=== PATIENT | male | born 1970 | race Caucasian/White ===

== ENCOUNTER 2018-10-16 13:01 | Inpatient (IN) | payer MEDICARE ==
[2018-10-16] MEDS ORDERED: IPRATROPIUM/ALBUTEROL 0.5-2.5 MG/3 ML AMPUL NEB ONE (13:28)
--- NOTE | 2018-10-16 13:28 | ER Document Report ---
ED Medical Screen (RME) - General Chief Complaint: Abnormal Lab Results Stated Complaint: ABORMAL LABS Time Seen by Provider: 10/16/18 13:22 TRAVEL OUTSIDE OF THE [place] IN LAST 30 DAYS: No - HPI Notes: 10/16/18 13:26 Patient is a 48-year-old male with a history of tobacco abuse and alcohol abuse who presents complaining of rectal bleeding and occasional wheezing with associated fatigue over the past month. Patient states that he received a call from his family doctor that told him to come here to the emergency department for evaluation as he had a hemoglobin of ?4. Patient states that he has never had an endoscopy or colonoscopy performed in the past. He has been drinking 20 beers per day for the past 10 to 15 years. Denies drug allergies. Denies PALAFOX, fever, neck pain, URI, CP, Abd pain, dysuria, back pain, or rash. I have treated and performed a rapid initial assessment of this patient. A comprehensive ED assessment and evaluation of the patient, analysis of test results and completion of medical decision making process will be conducted by additional ED providers. PHYSICAL EXAMINATION: GENERAL: no acute distress. A&Ox4. Answers questions appropriately. LUNGS: wheezing b/l HEART: Regular rate and rhythm without murmurs, rubs, gallops. ABDOMEN: Soft, nondistended abdomen. No guarding, no rebound. Normal bowel sounds present. No CVA tenderness bilaterally. Grossly nontender (cannot elicit thorough abd exam w/o bed, however). NEUROLOGICAL: Normal speech, normal gait. PSYCH: Normal mood, normal affect. Skin: pallor present - Related Data Allergies/Adverse Reactions: No Known Allergies Allergy (Verified 10/16/18 13:06) Physical Exam - Vital signs Vitals: Temp Pulse Resp BP Pulse Ox 98.5 F 98 18 140/60 H 94 10/16/18 13:08 10/16/18 13:08 10/16/18 13:08 10/16/18 13:08 10/16/18 13:08 Course - Vital Signs Vital signs: Temp Pulse Resp BP Pulse Ox 98.5 F 98 18 140/60 H 94 10/16/18 13:08 10/16/18 13:08 10/16/18 13:08 10/16/18 13:08 10/16/18 13:08
--- NOTE | 2018-10-16 14:20 | RADIOLOGY REPORT (SQ) ---
EXAM DESCRIPTION: CHEST SINGLE VIEW COMPLETED DATE/TIME: 10/16/2018 1:58 pm REASON FOR STUDY: wheeze COMPARISON: None. EXAM PARAMETERS: NUMBER OF VIEWS: One view. TECHNIQUE: Single frontal radiographic view of the chest acquired. RADIATION DOSE: NA LIMITATIONS: None. FINDINGS: LUNGS AND PLEURA: No opacities, masses or pneumothorax. No pleural effusion. MEDIASTINUM AND HILAR STRUCTURES: No masses. Contour normal. HEART AND VASCULAR STRUCTURES: Heart normal in size. Normal vasculature. BONES: No acute findings. HARDWARE: None in the chest. OTHER: No other significant finding. IMPRESSION: NO ACUTE RADIOGRAPHIC FINDING IN THE CHEST. TECHNICAL DOCUMENTATION: JOB ID: [id number] [employer]- All Rights Reserved Reading location - IP/workstation name: [email or web address]
[2018-10-16 14:34] LABS: INTERNATIONAL RATION (INR) 1.29; PROTHROMBIN TIME 16.8 SEC (11.4-15.4)
[2018-10-16 14:35] LABS: ABSOLUTE BASOPHILS # (AUTO) 0.2 10^3/uL (0.0-0.2); ABSOLUTE EOSINOPHILS # (AUTO) 0.1 10^3/uL (0.0-0.6); ABSOLUTE LYMPHOCYTES (AUTO) 1.3 10^3/uL (0.5-4.7); ABSOLUTE MONOCYTES (AUTO) 0.9 10^3/uL (0.1-1.4); BASOPHILS % (AUTO) 1.8 % (0-2); EOSINOPHILS % (AUTO) 1.3 % (0-6); LYMPHOCYTES % (AUTO) 15.5 % (13-45); MEAN CORPUSCULAR HEMOGLOBIN 23.3 pg (27.0-33.4); MEAN CORPUSCULAR HGB CONC 31.1 g/dL (32.0-36.0); MEAN CORPUSCULAR VOLUME 75 fl (80-97); MONOCYTES % (AUTO) 10.5 % (3-13); PARTIAL THROMBOPLASTIN TIME 37.5 SEC (23.5-35.8); PLATELET COUNT 166 10^3/uL (150-450); RED BLOOD COUNT 1.97 10^6/uL (4.35-5.55); RED CELL DISTRIBUTION WIDTH 19.7 % (11.5-14.0); SEGMENTED NEUTROPHILS % (AUTO) 70.9 % (42-78); TOTAL CELLS COUNTED % (AUTO) 100 %; WHITE BLOOD COUNT 8.5 10^3/uL (4.0-10.5)
[2018-10-16] MEDS ORDERED: LEVETIRACETAM 500 MG TABLET PO ONE (14:43)
[2018-10-16] MEDS ORDERED: NICOTINE 14 MG/24 HR PATCH.TD24 TD ONE (14:43)
[2018-10-16 14:56] LABS: HEMATOCRIT 14.8 % (37.9-51.0); HEMOGLOBIN 4.6 g/dL (13.5-17.0)
[2018-10-16 15:09] LABS: ANISOCYTOSIS 2+; HYPOCHROMASIA 3+
[2018-10-16 15:10] LABS: PLATELET COMMENT ADEQUATE
[2018-10-16] MEDS ORDERED: NORMAL SALINE 250 ML IV PRN (15:11)
[2018-10-16] MEDS ORDERED: FUROSEMIDE INJ/PF 20 MG/2 ML SDV IV ONE (15:12)
[2018-10-16 15:17] LABS: ALANINE AMINOTRANSFERASE 32 U/L (21-72); ALBUMIN 3.6 g/dL (3.5-5.0); ALKALINE PHOSPHATASE 128 U/L (38-126); ANION GAP 15 (5-19); ASPARTATE AMINO TRANSFERASE 125 U/L (17-59); BILIRUBIN,DIRECT 1.1 mg/dL (0.0-0.4); BILIRUBIN,TOTAL 2.2 mg/dL (0.2-1.3); BLOOD UREA NITROGEN 4 mg/dL (7-20); CALCIUM 8.8 mg/dL (8.4-10.2); CARBON DIOXIDE 23 mmol/L (22-30); CHLORIDE 101 mmol/L (98-107); GLUCOSE 98 mg/dL (75-110); POTASSIUM 3.9 mmol/L (3.6-5.0); SODIUM 138.5 mmol/L (137-145); TOTAL PROTEIN 7.8 g/dL (6.3-8.2)
[2018-10-16 15:39] LABS: APPEARANCE,URINE CLEAR; BILIRUBIN,URINE NEGATIVE (NEGATIVE); COLOR,URINE YELLOW; GLUCOSE, URINE NEGATIVE (NEGATIVE); KETONES,URINE NEGATIVE (NEGATIVE); LEUKOCYTE ESTERASE,URINE NEGATIVE (NEGATIVE); NITRITE,URINE NEGATIVE (NEGATIVE); PROTEIN,URINE NEGATIVE (NEGATIVE); URINE SPECIFIC GRAVITY 1.002; UROBILINOGEN,URINE NEGATIVE mg/dL (<2.0)
--- NOTE | 2018-10-16 15:59 | ER Document Report ---
ED General - General Chief Complaint: Abnormal Lab Results Stated Complaint: ABORMAL LABS Time Seen by Provider: 10/16/18 13:22 Notes: Patient is a 48-year-old male with history of epilepsy and chronic alcoholism that presents to the emergency department for chief complaint of fatigue, and low hemoglobin. Patient apparently was seen as an outpatient yesterday had blood work drawn, got the results today showed a hemoglobin of 4.6, he reports having bright red blood per rectum over the past month, its intermittent, but for the most part he has been having blood mixed with the stool. He denies having any black or tarry stools. Denies having any associated abdominal pain, nausea or vomiting. He is felt weak and fatigue he noticed that his legs have been more swollen recently as well. Denies noting more swelling in one leg or the other. He reports drinking alcohol on a daily basis approximate 20 beers a day. He also smokes cigarettes. Denies prior history of GERD or peptic ulcer disease. Past Medical History: Epilepsy, chronic alcoholism Past Surgical History: Knee surgery, finger surgery Social History: Admits to smoking cigarettes, drinks 20 beers a day, denies illicit drug use. Recently moved here from [place]. Family History: Reviewed and noncontributory for presenting illness Allergies: Reviewed, see documented allergy list. REVIEW OF SYSTEMS: Other than noted above, the 12 point review of systems was reviewed with the patient and were negative, all pertinent findings are included in the HPI. PHYSICAL EXAMINATION: Vital signs reviewed, nursing noted reviewed. GENERAL: Patient appears uncomfortable, pale, but not diaphoretic HEAD: Atraumatic, normocephalic. EYES: Eyes appear normal, extraocular movements intact, sclera anicteric, conjunctiva are normal. ENT: nares patent, oropharynx clear without exudates. Moist mucous membranes. NECK: Normal range of motion, supple without lymphadenopathy, no JVD LUNGS: Bilateral wheezing noted throughout all lung albarado, no acute respiratory distress however. HEART: Regular rate and rhythm without murmurs ABDOMEN: Soft, obese, nontender, normoactive bowel sounds. No rebound, guarding, or rigidity. No masses appreciated. No appreciated ascites or fluid wave EXTREMITIES: Nontender, good range of motion, bilateral lower extremity edema, equal, no erythema. NEUROLOGICAL: No focal neurological deficits. Moves all extremities spontaneously Motor and sensory grossly intact on exam. PSYCH: Normal mood, normal affect. SKIN: Warm, Dry, normal turgor, pallor TRAVEL OUTSIDE OF THE [place] IN LAST 30 DAYS: No - Related Data Allergies/Adverse Reactions: No Known Allergies Allergy (Verified 10/16/18 13:06) Past Medical History - Social History Smoking Status: Current Every Day Smoker Family History: Reviewed & Not Pertinent Patient has suicidal ideation: No Patient has homicidal ideation: No Renal/ Medical History: Denies: Hx Peritoneal Dialysis Physical Exam - Vital signs Vitals: Temp Pulse Resp BP Pulse Ox 98.5 F 98 18 140/60 H 94 10/16/18 13:08 10/16/18 13:08 10/16/18 13:08 10/16/18 13:08 10/16/18 13:08 Course - Re-evaluation Re-evalutation: Patient seen and examined vital signs reviewed. Laboratory data and imaging were ordered as appropriate for the patient's presenting symptoms and complaint, with consideration of any critical or life threatening conditions that may be associated with their obtained history and exam as noted above. Patient was treated with blood transfusion, 4 units ordered after hemoglobin came back at 4.6, Lasix ordered to be given in between units, patient was given his afternoon Keppra dose, and nicotine patch that was requested. He is also had some wheezing so was given a DuoNeb breathing treatment. Results were reviewed when available and demonstrated severe anemia, mild hyperbilirubinemia, and slight elevation of AST, which would be consistent with the patient's alcohol use, his INR was only 1.26, platelet count was normal. The patient was re-evaluated and was hemodynamically stable, I did order a CT image of the abdomen and pelvis, but was ordered prior to this. Evaluation was most consistent with acute blood loss anemia, rectal bleeding Results were discussed with the patient at this point after careful consideration I feel that that patient should be admitted to the hospital. This was discussed with the patient that it is in the best interest for their care to be admitted for further evaluation and management. Patient agreed with this plan of care. A call was placed to the admitted physician, [] who graciously accepted the patient onto their service. *Note is created using voice recognition software and may contain spelling, syntax or grammatical errors. Laboratory 10/16/18 10/16/18 10/16/18 14:02 14:02 14:02 WBC 8.5 RBC 1.97 L Hgb 4.6 L* Hct 14.8 L* MCV 75 L MCH 23.3 L MCHC 31.1 L RDW 19.7 H Plt Count 166 Seg Neutrophils % 70.9 Lymphocytes % 15.5 Monocytes % 10.5 Eosinophils % 1.3 Basophils % 1.8 Absolute Neutrophils 6.0 Absolute Lymphocytes 1.3 Absolute Monocytes 0.9 Absolute Eosinophils 0.1 Absolute Basophils 0.2 Platelet Comment ADEQUATE Hypochromasia 3+ Anisocytosis 2+ Microcytosis 1+ PT 16.8 H INR 1.29 APTT 37.5 H Sodium 138.5 Potassium 3.9 Chloride 101 Carbon Dioxide 23 Anion Gap 15 BUN 4 L Creatinine 0.95 Est GFR ( Amer) > 60 Est GFR (Non-Af Amer) > 60 Glucose 98 Calcium 8.8 Total Bilirubin 2.2 H Direct Bilirubin 1.1 H Neonat Total Bilirubin Not Reportable Neonat Direct Bilirubin Not Reportable Neonat Indirect Bili Not Reportable AST 125 H ALT 32 Alkaline Phosphatase 128 H Total Protein 7.8 Albumin 3.6 Urine Color Urine Appearance Urine pH Ur Specific [place] Urine Protein Urine Glucose (UA) Urine Ketones Urine Blood Urine Nitrite Urine Bilirubin Urine Urobilinogen Ur Leukocyte Esterase Urine WBC (Auto) Urine RBC (Auto) U Hyaline Cast (Auto) Urine Bacteria (Auto) Urine Ascorbic Acid Blood Type Antibody Screen Crossmatch 10/16/18 10/16/18 14:02 15:05 WBC RBC Hgb Hct MCV MCH MCHC RDW Plt Count Seg Neutrophils % Lymphocytes % Monocytes % Eosinophils % Basophils % Absolute Neutrophils Absolute Lymphocytes Absolute Monocytes Absolute Eosinophils Absolute Basophils Platelet Comment Hypochromasia Anisocytosis Microcytosis PT INR APTT Sodium Potassium Chloride Carbon Dioxide Anion Gap BUN Creatinine Est GFR ( Amer) Est GFR (Non-Af Amer) Glucose Calcium Total Bilirubin Direct Bilirubin Neonat Total Bilirubin Neonat Direct Bilirubin Neonat Indirect Bili AST ALT Alkaline Phosphatase Total Protein Albumin Urine Color YELLOW Urine Appearance CLEAR Urine pH 6.0 Ur Specific [place] 1.002 Urine Protein NEGATIVE Urine Glucose (UA) NEGATIVE Urine Ketones NEGATIVE Urine Blood NEGATIVE Urine Nitrite NEGATIVE Urine Bilirubin NEGATIVE Urine Urobilinogen NEGATIVE Ur Leukocyte Esterase NEGATIVE Urine WBC (Auto) 0 Urine RBC (Auto) 0 U Hyaline Cast (Auto) 1 Urine Bacteria (Auto) TRACE Urine Ascorbic Acid NEGATIVE Blood Type O POSITIVE Antibody Screen NEGATIVE Crossmatch See Detail Chest X-Ray 10/16/18 13:25 IMPRESSION: NO ACUTE RADIOGRAPHIC FINDING IN THE CHEST. - Vital Signs Vital signs: Temp Pulse Resp BP Pulse Ox 98.9 F 91 23 H 91/49 L 87 L 10/16/18 19:16 10/16/18 19:16 10/16/18 19:16 10/16/18 19:16 10/16/18 19:16 - Laboratory Result Diagrams: 10/16/18 14:02 10/16/18 14:02 Laboratory results interpreted by me: 10/16/18 10/16/18 10/16/18 14:02 14:02 14:02 RBC 1.97 L Hgb 4.6 L* Hct 14.8 L* MCV 75 L MCH 23.3 L MCHC 31.1 L RDW 19.7 H PT 16.8 H APTT 37.5 H BUN 4 L Total Bilirubin 2.2 H Direct Bilirubin 1.1 H AST 125 H Alkaline Phosphatase 128 H Crossmatch 10/16/18 14:02 RBC Hgb Hct MCV MCH MCHC RDW PT APTT BUN Total Bilirubin Direct Bilirubin AST Alkaline Phosphatase Crossmatch See Detail Critical Care Note - Critical Care Note Total time excluding time spent on procedures (mins): 35 Comments: Critical care time 35 minutes exclusive from separate billable procedures for a patient requiring complex medical decision making, and high potential for cl inical deterioration. In a patient with severe acute blood loss anemia, with rectal source, requiring blood transfusion, close monitoring, as well as monitoring for alcohol withdrawal syndrome. Time spent obtaining history from patient or surrogate, discussions with consultants, development of treatment plan with patient or surrogate, evaluation of patient's response to treatment, examination of patient, ordering and performing treatments and interventions, ordering and review of laboratory studies, re-evaluation of patient's condition, ordering and review of radiographic studies and review of old charts Discharge - Discharge Clinical Impression: Acute blood loss anemia, Rectal bleeding, Hyperbilirubinemia, Alcohol abuse Condition: Stable Disposition: ADMITTED INPATIENT Admitting Provider: Justa (Hospitalist) Unit Admitted: [facility]
[2018-10-16] MEDS ORDERED: LORAZEPAM INJ 2 MG/1 ML VIAL IV ONE (16:05)
[2018-10-16] MEDS ORDERED: RINGERS SOLUTION,LACTATED 1,000 ML IV PRN (18:33)
[2018-10-16] MEDS ORDERED: ONDANSETRON HCL INJ/PF 4 MG/2 ML SDV IV PRN (18:33)
[2018-10-16] MEDS ORDERED: GLUCAGON,HUMAN RECOMB 1 MG INJ SUBCUT PRN (18:38)
[2018-10-16] MEDS ORDERED: DEXTROSE 50%-WATER 25 GM/50 ML DISP.SYRIN IV PRN ×2 (18:38)
[2018-10-16] MEDS ORDERED: DEXTROSE 40% GEL 15 GM TUBE PO PRN ×2 (18:38)
--- NOTE | 2018-10-16 18:53 | PDOC H&P ---
History of Present Illness Admission Date/PCP: 10/16/18 16:19 History of Present Illness: TOAN SANTOS is a 48 year old male who smokes 2 to 3 packs of cigarettes a day and drinks about 20 beers a day with a medical history remarkable for epilepsy who presents to the ER after being called by his primary care office with abnormal labs. He just moved here from [place] and was getting established with the [facility] and he had some blood work done. They called him and said his hemoglobin was really low and so they sent him to the ER. He came in and his hemoglobin was 4.6. He reports a history of bright red blood per rectum off and on for the past month but more frequent the past week. He does not take any blood thinners. He is never had a colonoscopy. He does not have any abdominal pain. He has not had any melena. No hematemesis. No nosebleeds. He does not take aspirin or antiplatelets. The only supplement that he takes is a multivitamin. He only takes 2 medications at home, Lamictal and Keppra. Past Medical History Neurological Medical History: Reports: Seizures Past Surgical History Past Surgical History: Reports: None Social History Smoking Status: Current Every Day Smoker Cigarettes Packs Per Day: 2 - 2 to 3 packs/day Frequency of Alcohol Use: Heavy Amount of Alcoholic Beverages Per Day: At least 20 beers per day - Advance Directive Resuscitation Status: Full Code Family History Parental Family History Reviewed: Yes - Mom had epilepsy, dad had coronary artery disease and of pancreatic ca Children Family History Reviewed: NA Sibling(s) Family History Reviewed.: Yes - Sister epilepsy, brother cirrhosis hep C leukemia Medication/Allergy Home Medications: Furosemide [Lasix 40 mg Tablet] 40 mg PO QAM 10/16/18 Lamotrigine [Lamictal] 150 mg PO Q12 10/16/18 Levetiracetam [Keppra] 1,000 mg PO Q8 10/16/18 Allergies/Adverse Reactions: No Known Allergies Allergy (Verified 10/16/18 13:06) Review of Systems All systems: reviewed and no additional remarkable complaints except as stated - All systems were reviewed and were negative except as noted above in the HPI Physical Exam Vital Signs: Temp Pulse Resp BP Pulse Ox 99.3 F 87 21 H 114/58 L 94 10/16/18 17:23 10/16/18 17:23 10/16/18 17:23 10/16/18 17:23 10/16/18 17:23 Intake & Output 10/15/18 10/16/18 10/17/18 06:59 06:59 06:59 Intake Total 0 Output Total 600 Balance -600 Weight 103.2 kg General appearance: PRESENT: no acute distress, cooperative, disheveled, obese Head exam: PRESENT: atraumatic, normocephalic Eye exam: PRESENT: EOMI, PERRLA. ABSENT: conjunctival injection, nystagmus, scleral icterus Ear exam: PRESENT: normal external ear exam Mouth exam: PRESENT: dry mucosa, neck supple Teeth exam: PRESENT: poor dentation Throat exam: ABSENT: post pharyngeal erythema Neck exam: PRESENT: full ROM. ABSENT: carotid bruit, JVD, lymphadenopathy, meningismus, tenderness, thyromegaly Respiratory exam: PRESENT: decreased breath sounds, symmetrical, unlabored. ABSENT: accessory muscle use, chest wall tenderness, crackles, prolonged expiratory phas, rhonchi, tachypnea, wheezes Cardiovascular exam: PRESENT: RRR, +S1, +S2, systolic murmur - Possible soft 1 out of 6 systolic murmur Pulses: PRESENT: normal carotid pulses Vascular exam: PRESENT: pallor GI/Abdominal exam: PRESENT: normal bowel sounds, soft, other - Abdomen was a bit protuberant. ABSENT: distended, guarding, rebound, tenderness Rectal exam: PRESENT: other - Positive Hemoccult from rectal exam in ER Extremities exam: PRESENT: +1 edema. ABSENT: clubbing, pedal edema Musculoskeletal exam: PRESENT: normal inspection. ABSENT: deformity Neurological exam: PRESENT: alert, awake, oriented to person, oriented to place, oriented to time, oriented to situation, CN II-XII grossly intact. ABSENT: motor sensory deficit Psychiatric exam: PRESENT: flat affect, normal mood Skin exam: PRESENT: dry, pallor, warm Results Laboratory Results: 10/16/18 14:02 10/16/18 14:02 10/16/18 10/16/18 10/16/18 14:02 14:02 14:02 WBC 8.5 RBC 1.97 L Hgb 4.6 L* Hct 14.8 L* MCV 75 L MCH 23.3 L MCHC 31.1 L RDW 19.7 H Plt Count 166 Seg Neutrophils % 70.9 Lymphocytes % 15.5 Monocytes % 10.5 Eosinophils % 1.3 Basophils % 1.8 Absolute Neutrophils 6.0 Absolute Lymphocytes 1.3 Absolute Monocytes 0.9 Absolute Eosinophils 0.1 Absolute Basophils 0.2 Sodium 138.5 Potassium 3.9 Chloride 101 Carbon Dioxide 23 Anion Gap 15 BUN 4 L Creatinine 0.95 Est GFR ( Amer) > 60 Est GFR (Non-Af Amer) > 60 Glucose 98 Calcium 8.8 Total Bilirubin 2.2 H AST 125 H ALT 32 Alkaline Phosphatase 128 H Total Protein 7.8 Albumin 3.6 Urine Color Urine Appearance Urine pH Ur Specific [place] Urine Protein Urine Glucose (UA) Urine Ketones Urine Blood Urine Nitrite Ur Leukocyte Esterase Urine WBC (Auto) Urine RBC (Auto) Blood Type O POSITIVE Antibody Screen NEGATIVE 10/16/18 15:05 WBC RBC Hgb Hct MCV MCH MCHC RDW Plt Count Seg Neutrophils % Lymphocytes % Monocytes % Eosinophils % Basophils % Absolute Neutrophils Absolute Lymphocytes Absolute Monocytes Absolute Eosinophils Absolute Basophils Sodium Potassium Chloride Carbon Dioxide Anion Gap BUN Creatinine Est GFR ( Amer) Est GFR (Non-Af Amer) Glucose Calcium Total Bilirubin AST ALT Alkaline Phosphatase Total Protein Albumin Urine Color YELLOW Urine Appearance CLEAR Urine pH 6.0 Ur Specific [place] 1.002 Urine Protein NEGATIVE Urine Glucose (UA) NEGATIVE Urine Ketones NEGATIVE Urine Blood NEGATIVE Urine Nitrite NEGATIVE Ur Leukocyte Esterase NEGATIVE Urine WBC (Auto) 0 Urine RBC (Auto) 0 Blood Type Antibody Screen Impressions: Chest X-Ray 10/16/18 13:25 IMPRESSION: NO ACUTE RADIOGRAPHIC FINDING IN THE CHEST. Assessment and Plan - Diagnosis (1) Acute blood loss anemia Is this a current diagnosis for this admission?: Yes Plan: He has had 4 units of packed red cells ordered. We will check a CBC every 6 hours to see if he winds up needing more blood. Empirically put him on Protonix twice a day even though I suspect it is a lower GI source. (2) Acute lower GI bleeding Is this a current diagnosis for this admission?: Yes Plan: I contacted Dr. Watt, who despite not being project construction manager, graciously agreed to come in and evaluate this patient for need for endoscopic evaluation. I appreciate very much his willingness to help with this patient. (3) Alcoholism Is this a current diagnosis for this admission?: Yes Plan: We will order him a banana bag every day, and have as needed Ativan ordered for withdrawal symptoms. (4) Tobacco abuse Is this a current diagnosis for this admission?: Yes Plan: Strongly encouraged smoking cessation. - Time Time Spent with patient: 75 minutes Time Spent with patient: 35 or more minutes - Inpatient Certification Based on my medical assessment, after consideration of the patient's comorbid ities, presenting symptoms, or acuity I expect that the services needed warrant INPATIENT care.: Yes I certify that my determination is in accordance with my understanding of Medicare's requirements for reasonable and necessary INPATIENT services [42 CFR 412.3e].: Yes Medical Necessity: Significant Comorbidiites Make Outpatient Treatment Too Risky, Need For IV Fluids, Need For Continuous Telemetry Monitoring, Need for Neurological Checks, Need for Surgery, Risk of Complication if Not Cared For in Hospital
--- NOTE | 2018-10-16 18:54 | RADIOLOGY REPORT (SQ) ---
EXAM DESCRIPTION: CT ABD/PELVIS WITH IV ORAL COMPLETED DATE/TIME: 10/16/2018 6:40 pm REASON FOR STUDY: rectal bleeding COMPARISON: None. TECHNIQUE: CT scan of the abdomen and pelvis performed using helical scanning technique with dynamic intravenous contrast injection. Oral contrast. Images reviewed with lung, soft tissue, and bone win dows. Reconstructed coronal and sagittal MPR images reviewed. Delayed images for evaluation of the ur inary system also acquired. All images stored on PACS. All CT scanners at this facility use dose modulation, iterative reconstruction, and/or weight based d osing when appropriate to reduce radiation dose to as low as reasonably achievable (ALARA). [facility]: Dose Right [facility]: CareDose [facility]: Dose Right [facility]: Teradose 4D [facility]: [place] CONTRAST TYPE AND DOSE: contrast/concentration: Isovue 350.00 mg/ml; Total Contrast Delivered: 100.0 ml; Total Saline Delivered: 72.0 ml RENAL FUNCTION: BUN 4 creatinine 0.95 RADIATION DOSE: CT Rad equipment meets quality standard of care and radiation dose reduction techniq ues were employed. CTDIvol: 16.2 - 18.6 mGy. DLP: 1957 mGy-cm.. LIMITATIONS: None. FINDINGS: LOWER CHEST: Mild bibasilar atelectatic changes. LIVER: The liver is somewhat hypoattenuating. SPLEEN: Normal size. No focal lesions. PANCREAS: No masses. No significant calcifications. No adjacent inflammation or peripancreatic fluid collections. Pancreatic duct not dilated. GALLBLADDER: No identified stones by CT criteria. No inflammatory changes to suggest cholecystitis. ADRENAL GLANDS: No significant masses or asymmetry. RIGHT KIDNEY AND URETER: No solid masses. No significant calcifications. No hydronephrosis or hyd roureter. LEFT KIDNEY AND URETER: No solid masses. No significant calcifications. No hydronephrosis or hydr oureter. AORTA AND VESSELS: No aneurysm. No dissection. Renal arteries, SMA, celiac without stenosis. RETROPERITONEUM: No retroperitoneal adenopathy, hemorrhage or masses. BOWEL AND PERITONEAL CAVITY: There is limited wall thickening in the cecum. No obvious bowel mass. APPENDIX: Not identified. PELVIS: Urinary bladder is normal. No pelvic mass or fluid collection. ABDOMINAL WALL: No masses. No hernias. BONES: No significant or acute findings. OTHER: No other significant finding. IMPRESSION: Mild basilar atelectasis. There appears to be some degree of hepatic steatosis. There is limited thickening of the wall of the cecum. Correlate for inflammatory bowel disease. TECHNICAL DOCUMENTATION: JOB ID: [id number] Quality ID # [id number]: Final reports with documentation of one or more dose reduction techniques (e.g., Au tomated exposure control, adjustment of the mA and/or kV according to patient size, use of iterative reconstruction technique) 2010 [employer]- All Rights Reserved Reading location - IP/workstation name: [email or web address]
[2018-10-16] MEDS: PANTOPRAZOLE SODIUM 40 MG VIAL IV SCH (21:41)
[2018-10-16] MEDS: LAMOTRIGINE 100 MG TABLET PO SCH (21:42)
[2018-10-16] MEDS: NORMAL SALINE 1000 ML 1,000 ML with POTASSIUM CHLORIDE 20 MEQ, MAGNESIUM SULFATE 8 MEQ,... IV SCH ×5 (21:42)
[2018-10-16] MEDS: LEVETIRACETAM 500 MG TABLET PO SCH (21:42)
[2018-10-16] MEDS ORDERED: (PENDING PHARMACY ID) (Lamotrigine [Lamictal] 150 MG) PO SCH (22:00)
[2018-10-16] MEDS ORDERED: (PENDING PHARMACY ID) (Levetiracetam [Keppra] 1,000 MG) PO SCH (22:00)
[2018-10-17] MEDS ORDERED: FUROSEMIDE INJ/PF 20 MG/2 ML SDV IV PRN (00:52)
[2018-10-17] MEDS ORDERED: FUROSEMIDE INJ/PF 20 MG/2 ML SDV IV ONE (01:00)
[2018-10-17] MEDS: LEVETIRACETAM 500 MG TABLET PO SCH ×3 (05:34→21:10)
[2018-10-17 06:25] LABS: MEAN CORPUSCULAR HEMOGLOBIN 25.5 pg (27.0-33.4); MEAN CORPUSCULAR HGB CONC 32.9 g/dL (32.0-36.0); MEAN CORPUSCULAR VOLUME 77 fl (80-97); PLATELET COUNT 136 10^3/uL (150-450); RED BLOOD COUNT 2.84 10^6/uL (4.35-5.55); RED CELL DISTRIBUTION WIDTH 18.6 % (11.5-14.0)
[2018-10-17 06:32] LABS: HEMOGLOBIN 7.2 g/dL (13.5-17.0)
[2018-10-17 06:45] LABS: ALANINE AMINOTRANSFERASE 31 U/L (21-72); ALBUMIN 3.3 g/dL (3.5-5.0); ALKALINE PHOSPHATASE 112 U/L (38-126); ANION GAP 12 (5-19); ASPARTATE AMINO TRANSFERASE 101 U/L (17-59); BILIRUBIN,DIRECT 1.6 mg/dL (0.0-0.4); BILIRUBIN,TOTAL 4.5 mg/dL (0.2-1.3); BLOOD UREA NITROGEN 6 mg/dL (7-20); CALCIUM 8.4 mg/dL (8.4-10.2); CARBON DIOXIDE 25 mmol/L (22-30); CHLORIDE 104 mmol/L (98-107); GLUCOSE 99 mg/dL (75-110); POTASSIUM 3.8 mmol/L (3.6-5.0); SODIUM 141.1 mmol/L (137-145); TOTAL PROTEIN 7.1 g/dL (6.3-8.2)
[2018-10-17] MEDS ORDERED: FUROSEMIDE INJ/PF 40 MG/4 ML SDV IV ONE (10:00)
[2018-10-17] MEDS: PANTOPRAZOLE SODIUM 40 MG VIAL IV SCH ×2 (10:37→21:09)
[2018-10-17] MEDS: LAMOTRIGINE 100 MG TABLET PO SCH ×2 (10:37→21:10)
[2018-10-17] MEDS ORDERED: ACETAMINOPHEN 325 MG TABLET ONE (11:45)
[2018-10-17] MEDS ORDERED: DIPHENHYDRAMINE HCL 50 MG/ML VIAL ONE (12:38)
[2018-10-17] MEDS ORDERED: ONDANSETRON HCL INJ/PF 4 MG/2 ML SDV ONE (12:38)
[2018-10-17] MEDS ORDERED: NALOXONE HCL INJ/PF 0.4 MG/1 ML SDV ONE (12:39)
[2018-10-17] MEDS ORDERED: EPINEPHRINE INJ 1 MG/10 ML DISP.SYRIN ONE (12:39)
[2018-10-17] MEDS ORDERED: FLUMAZENIL INJ 0.5 MG/5 ML VIAL ONE (12:39)
[2018-10-17] MEDS ORDERED: GLUCAGON,HUMAN RECOMB 1 MG INJ ONE (12:39)
[2018-10-17] MEDS ORDERED: ACETAMINOPHEN 325 MG TABLET PO PRN (12:46)
[2018-10-17] MEDS ORDERED: MIDAZOLAM 2 MG/2 ML INJ IV ONE (13:11)
[2018-10-17] MEDS: MIDAZOLAM 2 MG/2 ML INJ ONE ×2 (13:11→13:24)
[2018-10-17] MEDS: FENTANYL CITRATE INJ/PF 100 MCG/2 ML AMPUL ONE ×3 (13:13→13:29)
[2018-10-17] MEDS ORDERED: FENTANYL CITRATE INJ/PF 100 MCG/2 ML AMPUL IV ONE (13:13)
--- NOTE | 2018-10-17 13:52 | PDOC CONSULTATION ---
Consultation Consult Date: 10/16/18 Provider Consulted: DIANA WASHINGTON Consult reason:: possible GI bleeding, chronic anemia History of Present Illness Admission Date/PCP: 10/16/18 16:19 History of Present Illness: TOAN SANTOS is a 48 year old male I was asked to see this patient by the Hospitalist physician yesterday, was admitted from the ED found to have a Hgb of around 4 patient was admitted due to possible GI bleeding patient was being transfused and I had spoken to the Hospitalist patient was going to be prepped overnight for GI procedures patient denies any SOB, or chest pain Past Medical History Neurological Medical History: Reports: Seizures - EPILEPSY Past Surgical History Past Surgical History: Reports: None Social History Smoking Status: Current Every Day Smoker Cigarettes Packs Per Day: 3 Number of Years Smokin Frequency of Alcohol Use: Heavy Hx Recreational Drug Use: No Drugs: None - Advance Directive Resuscitation Status: Full Code Family History Family History: Reviewed & Not Pertinent Parental Family History Reviewed: Yes Children Family History Reviewed: Unknown Sibling(s) Family History Reviewed.: Unknown Medication/Allergy Home Medications: Lamotrigine [Lamictal] 150 mg PO Q12 10/16/18 Levetiracetam [Keppra] 1,000 mg PO Q8 10/16/18 Allergies/Adverse Reactions: No Known Allergies Allergy (Verified 10/16/18 13:06) Review of Systems Constitutional: ABSENT: fever(s), headache(s), night sweats, weakness Eyes: ABSENT: visual disturbances Ears: ABSENT: hearing changes Nose, Mouth, and Throat: ABSENT: mouth pain, sore throat Cardiovascular: ABSENT: edema, orthropnea, palpitations Respiratory: ABSENT: dyspnea, hemoptysis Gastrointestinal: ABSENT: diarrhea, hematemesis, hematochezia, melena Genitourinary: ABSENT: dysuria, hematuria Musculoskeletal: ABSENT: deformity, joint swelling Integumentary: ABSENT: lesions, pruritus Neurological: ABSENT: syncope, tingling, tremor(s), vertigo Endocrine: ABSENT: polydipsia, polyphagia, polyuria Hematologic/Lymphatic: ABSENT: easy bruising Physical Exam Vital Signs: Temp Pulse Resp BP Pulse Ox 99.5 F 84 16 119/59 L 92 10/17/18 12:09 10/17/18 13:35 10/17/18 13:35 10/17/18 13:35 10/17/18 13:35 Intake & Output 10/16/18 10/17/18 10/18/18 06:59 06:59 06:59 Intake Total 1200 1023 Output Total 2500 Balance -1300 1023 Weight 93.5 kg General appearance: PRESENT: no acute distress, well-developed, well-nourished Head exam: PRESENT: atraumatic, normocephalic Eye exam: PRESENT: EOMI, PERRLA. ABSENT: nystagmus, periorbital swelling, scleral icterus Mouth exam: PRESENT: moist, neck supple Neck exam: ABSENT: meningismus, tenderness, thyromegaly Respiratory exam: PRESENT: symmetrical, unlabored. ABSENT: tachypnea, wheezes Cardiovascular exam: PRESENT: +S1, +S2 Neurological exam: PRESENT: oriented to time, oriented to situation, CN II-XII grossly intact Focused psych exam: ABSENT: restlessness Skin exam: PRESENT: normal color. ABSENT: mottled, pallor, urticaria Results Laboratory Results: 10/17/18 06:09 10/17/18 06:09 10/16/18 10/16/18 10/16/18 14:02 14:02 14:02 WBC 8.5 RBC 1.97 L Hgb 4.6 L* Hct 14.8 L* MCV 75 L MCH 23.3 L MCHC 31.1 L RDW 19.7 H Plt Count 166 Seg Neutrophils % 70.9 Lymphocytes % 15.5 Monocytes % 10.5 Eosinophils % 1.3 Basophils % 1.8 Absolute Neutrophils 6.0 Absolute Lymphocytes 1.3 Absolute Monocytes 0.9 Absolute Eosinophils 0.1 Absolute Basophils 0.2 Sodium 138.5 Potassium 3.9 Chloride 101 Carbon Dioxide 23 Anion Gap 15 BUN 4 L Creatinine 0.95 Est GFR ( Amer) > 60 Est GFR (Non-Af Amer) > 60 Glucose 98 Calcium 8.8 Total Bilirubin 2.2 H AST 125 H ALT 32 Alkaline Phosphatase 128 H Total Protein 7.8 Albumin 3.6 Urine Color Urine Appearance Urine pH Ur Specific [place] Urine Protein Urine Glucose (UA) Urine Ketones Urine Blood Urine Nitrite Ur Leukocyte Esterase Urine WBC (Auto) Urine RBC (Auto) Blood Type O POSITIVE Antibody Screen NEGATIVE 10/16/18 10/17/18 10/17/18 15:05 06:09 06:09 WBC 8.0 RBC 2.84 L Hgb 7.2 L D Hct 22.0 L MCV 77 L MCH 25.5 L MCHC 32.9 RDW 18.6 H Plt Count 136 L Seg Neutrophils % Lymphocytes % Monocytes % Eosinophils % Basophils % Absolute Neutrophils Absolute Lymphocytes Absolute Monocytes Absolute Eosinophils Absolute Basophils Sodium 141.1 Potassium 3.8 Chloride 104 Carbon Dioxide 25 Anion Gap 12 BUN 6 L Creatinine 0.97 Est GFR ( Amer) > 60 Est GFR (Non-Af Amer) > 60 Glucose 99 Calcium 8.4 Total Bilirubin 4.5 H AST 101 H ALT 31 Alkaline Phosphatase 112 Total Protein 7.1 Albumin 3.3 L Urine Color YELLOW Urine Appearance CLEAR Urine pH 6.0 Ur Specific [place] 1.002 Urine Protein NEGATIVE Urine Glucose (UA) NEGATIVE Urine Ketones NEGATIVE Urine Blood NEGATIVE Urine Nitrite NEGATIVE Ur Leukocyte Esterase NEGATIVE Urine WBC (Auto) 0 Urine RBC (Auto) 0 Blood Type Antibody Screen Impressions: Abdomen/Pelvis CT 10/16/18 00:00 IMPRESSION: Mild basilar atelectasis. There appears to be some degree of hepatic steatosis. There is limited thickening of the wall of the cecum. Correlate for inflammatory bowel disease. Chest X-Ray 10/16/18 13:25 IMPRESSION: NO ACUTE RADIOGRAPHIC FINDING IN THE CHEST. Assessment & Plan - Diagnosis (1) Rectal bleeding Plan: patient admitted for GI bleeding although in talking with the patient , he denies In my conversation with the Hospitalist, patient will be prepped overnight and will need EGD and colonoscopy Risks, benefits and alternatives are discussed further recommendations to follow - Time Time Spent: 50 to 70 Minutes
--- NOTE | 2018-10-17 13:55 | Operative Report ---
Operative Report DATE OF SURGERY: 10/17/18 Operative Report: The risks, benefits and alternatives of the procedure including the risk of bleeding, perforation requiring surgery have been explained to the patient in detail and informed consent has been obtained. Patient is brought to the endoscopy suite and placed in the left, lateral decubital position. Timeout was called. Conscious sedation medications are provided. Rectal examination is done which did not reveal any masses, tears or fissures. Digital rectal exam did not reveal any blood. The scope was then inserted into the patient's rectum the scope was then carefully advanced all the way to the cecum the cecum was identified by the usual anatomical landmarks including the ileocecal valve as well as the appendiceal office photodocumentation is obtained intubation of the terminal ileum is done, the scope was then sequentially pulled back via the bassam ious segments of the colon including the ascending colon, hepatic flexure, transverse colon, splenic flexure, descending colon and finally into the rectosigmoid portions of the colon. Retroflexion maneuvers performed. There is no blood visualized in the colon. The risks benefits and alternatives of the procedure explained to the patient in detail and informed consent is obtained.A GIF Olympus video scope was inserted into the patient's mouth and hypopharynx ,the esophagus is identified intubated and insufflated ,the scope was then advanced through the esophagus stomach and duodenum ,retroflexion maneuver is done,the esophagus stomach and first and second portions of the duodenum examined. PREOPERATIVE DIAGNOSIS: Possible GI bleeding POSTOPERATIVE DIAGNOSIS: No blood noted in the colon. No blood noted in the terminal ileum. Some internal hemorrhoids. No blood in the upper GI tract. Possible esophagitis status post biopsy OPERATION: Diagnostic colonoscopy. EGD with biopsy SURGEON: DIANA WASHINGTON ANESTHESIA: Moderate Sedation TISSUE REMOVED OR ALTERED: None. COMPLICATIONS: None. ESTIMATED BLOOD LOSS: None. INTRAOPERATIVE FINDINGS: As noted above. PROCEDURE: Patient tolerated the procedure well. No immediate postprocedure complications are noted. Patient is sent back to his room in good condition. Case discussed with his . Including findings Resume regular diet Resume regular activity level Once hemoglobin has stabilized he can be discharge
[2018-10-17] MEDS: LORAZEPAM INJ 2 MG/1 ML VIAL IV PRN ×2 (14:30→21:09)
[2018-10-17 16:46] LABS: HEMATOCRIT 24.5 % (37.9-51.0); MEAN CORPUSCULAR HEMOGLOBIN 25.5 pg (27.0-33.4); MEAN CORPUSCULAR HGB CONC 32.3 g/dL (32.0-36.0); MEAN CORPUSCULAR VOLUME 79 fl (80-97); PLATELET COUNT 141 10^3/uL (150-450); RED CELL DISTRIBUTION WIDTH 18.5 % (11.5-14.0)
[2018-10-17 16:48] LABS: HEMOGLOBIN 7.9 g/dL (13.5-17.0)
--- NOTE | 2018-10-17 18:32 | PDOC PROGRESS REPORT ---
Subjective Progress Note for:: 10/17/18 Subjective:: No adverse events overnight. He is gotten 4 units of blood and some fluids and started having some crackly breath sounds and so he was given some Lasix. This did help some with his breathing. He required 1/5 unit of PRBCs this morning. He had a colonoscopy and EGD and they were essentially negative for any obvious source of bleeding. Reason For Visit: ACUTE BLOOD LOSS ANEMIA, ACUTE LGIB Physical Exam Vital Signs: Temp Pulse Resp BP Pulse Ox 98.3 F 78 20 122/60 97 10/17/18 14:09 10/17/18 14:09 10/17/18 14:09 10/17/18 14:09 10/17/18 14:09 Intake & Output 10/16/18 10/17/18 10/18/18 06:59 06:59 06:59 Intake Total 1200 1548 Output Total 2500 Balance -1300 1548 Weight 93.5 kg General appearance: PRESENT: cooperative, disheveled, mild distress Respiratory exam: PRESENT: crackles - Very faint left lower lobe, decreased breath sounds, symmetrical, unlabored. ABSENT: accessory muscle use, chest wall tenderness, prolonged expiratory phas, rhonchi, tachypnea, wheezes Cardiovascular exam: PRESENT: RRR, +S1, +S2 Pulses: PRESENT: normal carotid pulses Vascular exam: PRESENT: normal capillary refill GI/Abdominal exam: PRESENT: normal bowel sounds, soft. ABSENT: distended, guarding, rebound, tenderness Extremities exam: ABSENT: clubbing, pedal edema Musculoskeletal exam: PRESENT: normal inspection. ABSENT: deformity Neurological exam: PRESENT: alert, awake, oriented to person, oriented to place, oriented to situation, other - A little tremulous Psychiatric exam: PRESENT: flat affect, normal mood Skin exam: PRESENT: dry, pallor, warm Results Laboratory Results: 10/17/18 16:37 10/17/18 06:09 10/16/18 10/17/18 10/17/18 14:02 06:09 06:09 WBC 8.0 RBC 2.84 L Hgb 7.2 L D Hct 22.0 L MCV 77 L MCH 25.5 L MCHC 32.9 RDW 18.6 H Plt Count 136 L Sodium 141.1 Potassium 3.8 Chloride 104 Carbon Dioxide 25 Anion Gap 12 BUN 6 L Creatinine 0.97 Est GFR ( Amer) > 60 Est GFR (Non-Af Amer) > 60 Glucose 99 Calcium 8.4 Total Bilirubin 4.5 H AST 101 H ALT 31 Alkaline Phosphatase 112 Total Protein 7.1 Albumin 3.3 L Blood Type O POSITIVE Antibody Screen NEGATIVE 10/17/18 16:37 WBC 9.0 RBC 3.10 L Hgb 7.9 L Hct 24.5 L MCV 79 L MCH 25.5 L MCHC 32.3 RDW 18.5 H Plt Count 141 L Sodium Potassium Chloride Carbon Dioxide Anion Gap BUN Creatinine Est GFR ( Amer) Est GFR (Non-Af Amer) Glucose Calcium Total Bilirubin AST ALT Alkaline Phosphatase Total Protein Albumin Blood Type Antibody Screen Impressions: Abdomen/Pelvis CT 10/16/18 00:00 IMPRESSION: Mild basilar atelectasis. There appears to be some degree of hepatic steatosis. There is limited thickening of the wall of the cecum. Correlate for inflammatory bowel disease. Chest X-Ray 10/16/18 13:25 IMPRESSION: NO ACUTE RADIOGRAPHIC FINDING IN THE CHEST. Assessment and Plan - Diagnosis (1) Acute blood loss anemia Is this a current diagnosis for this admission?: Yes Plan: Correcting after 5 units of packed red cells, hemoglobin up to date. Monitor him for any ongoing blood loss. (2) Acute lower GI bleeding Is this a current diagnosis for this admission?: Yes Plan: No obvious source of bleeding on his colonoscopy or EGD. He did have some hemorrhoids but there was no evidence of any bleeding on the report. He may need to be set up for a capsule endoscopy as an outpatient. (3) Alcoholism Is this a current diagnosis for this admission?: Yes Plan: He is getting a banana bag every day and being monitored closely for withdrawal symptoms and given PRN Ativan. (4) Tobacco abuse Is this a current diagnosis for this admission?: Yes Plan: Strongly encourage cessation - Time Time Spent with patient: 15-24 minutes - Plan Summary Plan Summary: Once his bleeding is stabilized he can be discharged and set up for an outpatient capsule endoscopy.
[2018-10-17] MEDS: NORMAL SALINE 1000 ML 1,000 ML with POTASSIUM CHLORIDE 20 MEQ, MAGNESIUM SULFATE 8 MEQ,... IV SCH ×5 (21:09)
[2018-10-18 01:28] LABS: HEMATOCRIT 23.1 % (37.9-51.0); MEAN CORPUSCULAR HEMOGLOBIN 25.8 pg (27.0-33.4); MEAN CORPUSCULAR HGB CONC 32.7 g/dL (32.0-36.0); MEAN CORPUSCULAR VOLUME 79 fl (80-97); PLATELET COUNT 120 10^3/uL (150-450); RED BLOOD COUNT 2.93 10^6/uL (4.35-5.55); RED CELL DISTRIBUTION WIDTH 18.7 % (11.5-14.0); WHITE BLOOD COUNT 8.5 10^3/uL (4.0-10.5)
[2018-10-18 01:30] LABS: HEMOGLOBIN 7.6 g/dL (13.5-17.0)
[2018-10-18] MEDS: LORAZEPAM INJ 2 MG/1 ML VIAL IV PRN ×6 (01:50→23:21)
[2018-10-18] MEDS: LEVETIRACETAM 500 MG TABLET PO SCH ×3 (05:51→21:48)
[2018-10-18 06:29] LABS: HEMATOCRIT 22.2 % (37.9-51.0); MEAN CORPUSCULAR HEMOGLOBIN 25.7 pg (27.0-33.4); MEAN CORPUSCULAR HGB CONC 32.8 g/dL (32.0-36.0); MEAN CORPUSCULAR VOLUME 78 fl (80-97); PLATELET COUNT 129 10^3/uL (150-450); RED BLOOD COUNT 2.83 10^6/uL (4.35-5.55); RED CELL DISTRIBUTION WIDTH 18.8 % (11.5-14.0); WHITE BLOOD COUNT 7.9 10^3/uL (4.0-10.5)
[2018-10-18 06:49] LABS: HEMOGLOBIN 7.3 g/dL (13.5-17.0)
[2018-10-18 06:52] LABS: ALANINE AMINOTRANSFERASE 31 U/L (21-72); ALKALINE PHOSPHATASE 104 U/L (38-126); ANION GAP 10 (5-19); ASPARTATE AMINO TRANSFERASE 77 U/L (17-59); BILIRUBIN,DIRECT 2.1 mg/dL (0.0-0.4); BILIRUBIN,TOTAL 4.3 mg/dL (0.2-1.3); BLOOD UREA NITROGEN 6 mg/dL (7-20); CALCIUM 8.1 mg/dL (8.4-10.2); CARBON DIOXIDE 24 mmol/L (22-30); CHLORIDE 102 mmol/L (98-107); GLUCOSE 79 mg/dL (75-110); POTASSIUM 3.5 mmol/L (3.6-5.0); SODIUM 136.2 mmol/L (137-145); TOTAL PROTEIN 6.5 g/dL (6.3-8.2)
[2018-10-18] MEDS: NICOTINE 21 MG/24 HR PATCH.TD24 TD SCH (09:54)
[2018-10-18] MEDS: LAMOTRIGINE 100 MG TABLET PO SCH ×2 (09:54→21:48)
--- NOTE | 2018-10-18 16:23 | PDOC PROGRESS REPORT ---
Subjective Progress Note for:: 10/18/18 Subjective:: No adverse events overnight. He is a little bit more tremulous today. His breathing seemed to be a little bit labor earlier but has since stabilized. His appetite is been fine. He is not noticed any more blood in stool. EGD and colonoscopy yesterday were negative for a definite source of bleeding, but some hemorrhoids were seen. Reason For Visit: ACUTE BLOOD LOSS ANEMIA, ACUTE LGIB Physical Exam Vital Signs: Temp Pulse Resp BP Pulse Ox 99.1 F 119 H 20 112/61 97 10/18/18 15:02 10/18/18 15:02 10/18/18 15:02 10/18/18 15:02 10/18/18 15:02 Intake & Output 10/17/18 10/18/18 10/19/18 06:59 06:59 06:59 Intake Total 1200 2328 1020 Output Total 2500 980 600 Balance -1300 1348 420 Weight 93.5 kg 102.9 kg General appearance: PRESENT: cooperative, disheveled, mild distress Respiratory exam: PRESENT: decreased breath sounds, symmetrical, unlabored. ABSENT: accessory muscle use, chest wall tenderness, crackles, prolonged expiratory phas, rhonchi, tachypnea, wheezes Cardiovascular exam: PRESENT: RRR, +S1, +S2 Pulses: PRESENT: normal carotid pulses Vascular exam: PRESENT: normal capillary refill GI/Abdominal exam: PRESENT: normal bowel sounds, soft. ABSENT: distended, guar ding, rebound, tenderness Extremities exam: ABSENT: clubbing, pedal edema Musculoskeletal exam: PRESENT: normal inspection. ABSENT: deformity Neurological exam: PRESENT: alert, awake, oriented to person, oriented to place, oriented to situation, other - A little tremulous Psychiatric exam: PRESENT: flat affect, normal mood Skin exam: PRESENT: dry, pallor, warm Results Laboratory Results: 10/18/18 05:00 10/18/18 05:00 10/17/18 10/18/18 10/18/18 16:37 00:40 05:00 WBC 9.0 8.5 RBC 3.10 L 2.93 L Hgb 7.9 L 7.6 L Hct 24.5 L 23.1 L MCV 79 L 79 L MCH 25.5 L 25.8 L MCHC 32.3 32.7 RDW 18.5 H 18.7 H Plt Count 141 L 120 L Sodium 136.2 L Potassium 3.5 L Chloride 102 Carbon Dioxide 24 Anion Gap 10 BUN 6 L Creatinine 0.91 Est GFR ( Amer) > 60 Est GFR (Non-Af Amer) > 60 Glucose 79 Calcium 8.1 L Total Bilirubin 4.3 H AST 77 H ALT 31 Alkaline Phosphatase 104 Total Protein 6.5 Albumin 3.0 L 10/18/18 05:00 WBC 7.9 RBC 2.83 L Hgb 7.3 L Hct 22.2 L MCV 78 L MCH 25.7 L MCHC 32.8 RDW 18.8 H Plt Count 129 L Sodium Potassium Chloride Carbon Dioxide Anion Gap BUN Creatinine Est GFR ( Amer) Est GFR (Non-Af Amer) Glucose Calcium Total Bilirubin AST ALT Alkaline Phosphatase Total Protein Albumin Impressions: Abdomen/Pelvis CT 10/16/18 00:00 IMPRESSION: Mild basilar atelectasis. There appears to be some degree of hepatic steatosis. There is limited thickening of the wall of the cecum. Correlate for inflammatory bowel disease. Chest X-Ray 10/16/18 13:25 IMPRESSION: NO ACUTE RADIOGRAPHIC FINDING IN THE CHEST. Assessment and Plan - Diagnosis (1) Acute blood loss anemia Is this a current diagnosis for this admission?: Yes Plan: Status post 5 units packed red blood cells. Monitoring his hemoglobin for any further drop. (2) Acute lower GI bleeding Is this a current diagnosis for this admission?: Yes Plan: Other than some hemorrhoids, nothing was really seen on colonoscopy or EGD. He will probably need a capsule endoscopy as an outpatient. (3) Alcoholism Is this a current diagnosis for this admission?: Yes Plan: Taking him off the banana bag and switching him to oral vitamin supplementation to reduce the amount of fluid intake. Monitoring very closely for signs of withdrawal, PRN Ativan. He had some hepatic steatosis on liver CT, but he also had some early peripheral nodularity of the liver. (4) Tobacco abuse Is this a current diagnosis for this admission?: Yes Plan: Strongly encourage cessation - Time Time Spent with patient: 15-24 minutes
[2018-10-18] MEDS: PANTOPRAZOLE SODIUM 40 MG TABLET.DR PO SCH (16:58)
[2018-10-19] MEDS ORDERED: LEVALBUTEROL HCL NEB 1.25 MG/3 ML AMPUL NEB ONE (00:15)
[2018-10-19] MEDS ORDERED: FUROSEMIDE INJ/PF 40 MG/4 ML SDV IV ONE (00:15)
[2018-10-19] MEDS: LORAZEPAM INJ 2 MG/1 ML VIAL IV PRN ×4 (00:33→22:42)
[2018-10-19] MEDS ORDERED: DIAZEPAM INJ 10 MG/2 ML DISP.SYRIN IV ONE (02:15)
[2018-10-19] MEDS: DIAZEPAM INJ 10 MG/2 ML DISP.SYRIN IV PRN ×4 (03:24→12:20)
[2018-10-19] MEDS: LEVETIRACETAM 500 MG TABLET PO SCH ×3 (05:18→21:04)
[2018-10-19] MEDS: DIAZEPAM 5 MG TABLET PO SCH ×3 (05:18→14:28)
[2018-10-19] MEDS: PANTOPRAZOLE SODIUM 40 MG TABLET.DR PO SCH ×2 (05:18→17:26)
[2018-10-19] MEDS: IPRATROPIUM/ALBUTEROL 0.5-2.5 MG/3 ML AMPUL NEB PRN ×2 (08:15→20:34)
[2018-10-19] MEDS: LAMOTRIGINE 100 MG TABLET PO SCH ×2 (09:31→21:04)
[2018-10-19] MEDS: NICOTINE 21 MG/24 HR PATCH.TD24 TD SCH (09:32)
[2018-10-19] MEDS: FOLIC ACID 1 MG TABLET PO SCH (09:32)
[2018-10-19] MEDS ORDERED: FLUMAZENIL INJ 0.5 MG/5 ML VIAL ONE (12:23)
[2018-10-19 13:06] LABS: HEMATOCRIT 23.1 % (37.9-51.0); MEAN CORPUSCULAR HEMOGLOBIN 26.3 pg (27.0-33.4); MEAN CORPUSCULAR HGB CONC 32.8 g/dL (32.0-36.0); MEAN CORPUSCULAR VOLUME 80 fl (80-97); PLATELET COUNT 134 10^3/uL (150-450); RED BLOOD COUNT 2.88 10^6/uL (4.35-5.55); RED CELL DISTRIBUTION WIDTH 19.7 % (11.5-14.0); WHITE BLOOD COUNT 7.6 10^3/uL (4.0-10.5)
[2018-10-19 13:08] LABS: HEMOGLOBIN 7.6 g/dL (13.5-17.0)
[2018-10-19 13:31] LABS: ALANINE AMINOTRANSFERASE 26 U/L (21-72); ALBUMIN 3.2 g/dL (3.5-5.0); ALKALINE PHOSPHATASE 106 U/L (38-126); ANION GAP 7 (5-19); ASPARTATE AMINO TRANSFERASE 70 U/L (17-59); BILIRUBIN,DIRECT 2.3 mg/dL (0.0-0.4); BILIRUBIN,TOTAL 3.8 mg/dL (0.2-1.3); BLOOD UREA NITROGEN 6 mg/dL (7-20); CALCIUM 8.5 mg/dL (8.4-10.2); CARBON DIOXIDE 27 mmol/L (22-30); CHLORIDE 105 mmol/L (98-107); GLUCOSE 87 mg/dL (75-110); POTASSIUM 3.5 mmol/L (3.6-5.0); SODIUM 139.1 mmol/L (137-145); TOTAL PROTEIN 6.8 g/dL (6.3-8.2)
[2018-10-19] MEDS: THIAMINE HCL 100 MG TABLET PO SCH (13:32)
[2018-10-19] MEDS: LEVALBUTEROL HCL NEB 1.25 MG/3 ML AMPUL NEB PRN (14:30)
[2018-10-19] MEDS ORDERED: METHYLPREDNISOLONE INJ 125 MG/2 ML SDV ONE (15:43)
[2018-10-19] MEDS ORDERED: METHYLPREDNISOLONE INJ 125 MG/2 ML SDV IV ONE (15:45)
--- NOTE | 2018-10-19 16:04 | PDOC PROGRESS REPORT ---
Subjective Progress Note for:: 10/19/18 Subjective:: As his alcohol withdrawal has begun to settle down, he has required repeated doses of IV benzodiazepines as well as soft wrist restraints. He is also been a little bit dyspneic. He got some Lasix yesterday and his volume status has improved and he is less swollen, but now he has a prolonged expiratory phase a little bit of wheezing. No evidence of any melena or hematochezia. Reason For Visit: ACUTE BLOOD LOSS ANEMIA, ACUTE LGIB Physical Exam Vital Signs: Temp Pulse Resp BP Pulse Ox 98.8 F 79 16 118/53 L 92 10/19/18 04:37 10/19/18 14:31 10/19/18 14:31 10/19/18 04:37 10/19/18 14:31 Intake & Output 10/18/18 10/19/18 10/20/18 06:59 06:59 06:59 Intake Total 2328 3203 Output Total 980 2800 Balance 1348 403 Weight 102.9 kg 101.6 kg General appearance: PRESENT: cooperative, disheveled, mild distress Respiratory exam: PRESENT: decreased breath sounds, prolonged expiratory phase, symmetrical, unlabored, end expiratory wheezes. ABSENT: accessory muscle use, chest wall tenderness, crackles, rhonchi, tachypnea Cardiovascular exam: PRESENT: RRR, +S1, +S2 Pulses: PRESENT: normal carotid pulses Vascular exam: PRESENT: normal capillary refill GI/Abdominal exam: PRESENT: normal bowel sounds, soft. ABSENT: distended, guarding, rebound, tenderness Extremities exam: ABSENT: clubbing, pedal edema. PRESENT: 1+ ankle edema Musculoskeletal exam: PRESENT: normal inspection. ABSENT: deformity Neurological exam: PRESENT: alert, awake, oriented to person, oriented to place, oriented to situation, other - A little tremulous Psychiatric exam: PRESENT: flat affect, normal mood Skin exam: PRESENT: dry, pallor, warm Results Laboratory Results: 10/19/18 12:45 10/19/18 12:45 10/19/18 10/19/18 12:45 12:45 WBC 7.6 RBC 2.88 L Hgb 7.6 L Hct 23.1 L MCV 80 MCH 26.3 L MCHC 32.8 RDW 19.7 H Plt Count 134 L Sodium 139.1 Potassium 3.5 L Chloride 105 Carbon Dioxide 27 Anion Gap 7 BUN 6 L Creatinine 0.93 Est GFR ( Amer) > 60 Est GFR (Non-Af Amer) > 60 Glucose 87 Calcium 8.5 Total Bilirubin 3.8 H AST 70 H ALT 26 Alkaline Phosphatase 106 Total Protein 6.8 Albumin 3.2 L Impressions: Abdomen/Pelvis CT 10/16/18 00:00 IMPRESSION: Mild basilar atelectasis. There appears to be some degree of hepatic steatosis. There is limited thickening of the wall of the cecum. Correlate for inflammatory bowel disease. Chest X-Ray 10/16/18 13:25 IMPRESSION: NO ACUTE RADIOGRAPHIC FINDING IN THE CHEST. Assessment and Plan - Diagnosis (1) Acute blood loss anemia Is this a current diagnosis for this admission?: Yes Plan: Hemoglobin stable in the mid 7 range (2) Acute lower GI bleeding Is this a current diagnosis for this admission?: Yes Plan: Other than some hemorrhoids, nothing was really seen on colonoscopy or EGD. He will probably need a capsule endoscopy as an outpatient. (3) Alcoholism Is this a current diagnosis for this admission?: Yes Plan: Currently in withdrawal. Being controlled with as needed medications. Vitamin supplementation. (4) Tobacco abuse Is this a current diagnosis for this admission?: Yes Plan: Strongly encourage cessation (5) COPD with acute exacerbation Is this a current diagnosis for this admission?: Yes Plan: I do not know if he has this is a formal diagnosis, but with his long smoking history of 2 to 3 packs a day I suspect he has it in at least some degree. With his excess prolonged expiratory phase and end expiratory wheezes and coarse breath sounds, I am going to put him on some Solu-Medrol along with some breathing treatments. - Time Time Spent with patient: 25-34 minutes
[2018-10-19 18:26] LABS: ARTERIAL BLOOD BASE EXCESS 2.1 mmol/L; ARTERIAL BLOOD H2CO3 1.02 mmol/L (1.05-1.35); ARTERIAL BLOOD HCO3 25.3 mmol/L (20-24); ARTERIAL BLOOD O2 SATURATION 94.1 % (94-98); ARTERIAL BLOOD PCO2 33.8 mmHg (35-45); ARTERIAL BLOOD PH 7.49 (7.35-7.45); ARTERIAL BLOOD PO2 63.5 mmHg (80-100); ARTERIAL BLOOD TOTAL CO2 26.3 mmol/L (23-27)
[2018-10-19 18:30] LABS: ARTERIAL BLOOD FIO2 4L
[2018-10-19] MEDS: METHYLPREDNISOLONE INJ 40 MG/1 ML SDV IV SCH (21:08)
[2018-10-20] MEDS: LORAZEPAM INJ 2 MG/1 ML VIAL IV PRN ×5 (00:42→21:28)
[2018-10-20] MEDS: LEVALBUTEROL HCL NEB 1.25 MG/3 ML AMPUL NEB PRN (01:07)
[2018-10-20] MEDS: METHYLPREDNISOLONE INJ 40 MG/1 ML SDV IV SCH ×3 (05:16→21:28)
[2018-10-20] MEDS: LEVETIRACETAM 500 MG TABLET PO SCH ×3 (05:16→21:29)
[2018-10-20] MEDS: PANTOPRAZOLE SODIUM 40 MG TABLET.DR PO SCH ×2 (05:16→16:56)
[2018-10-20] MEDS: LAMOTRIGINE 100 MG TABLET PO SCH ×2 (09:00→21:28)
[2018-10-20] MEDS: FOLIC ACID 1 MG TABLET PO SCH (09:00)
[2018-10-20] MEDS: THIAMINE HCL 100 MG TABLET PO SCH (09:00)
[2018-10-20] MEDS: NICOTINE 21 MG/24 HR PATCH.TD24 TD SCH (09:00)
[2018-10-20] MEDS: IPRATROPIUM/ALBUTEROL 0.5-2.5 MG/3 ML AMPUL NEB PRN ×2 (10:13→23:38)
[2018-10-20] MEDS ORDERED: ONDANSETRON HCL INJ/PF 4 MG/2 ML SDV IV PRN (11:00)
[2018-10-20 11:02] LABS: HEMOGLOBIN 8.4 g/dL (13.5-17.0); MEAN CORPUSCULAR HEMOGLOBIN 26.3 pg (27.0-33.4); MEAN CORPUSCULAR HGB CONC 32.4 g/dL (32.0-36.0); MEAN CORPUSCULAR VOLUME 81 fl (80-97); PLATELET COUNT 161 10^3/uL (150-450); RED CELL DISTRIBUTION WIDTH 19.8 % (11.5-14.0); WHITE BLOOD COUNT 8.8 10^3/uL (4.0-10.5)
[2018-10-20 13:52] LABS: PATH REVIEW PATHOLOGIST REVIEWED
--- NOTE | 2018-10-20 16:41 | PDOC PROGRESS REPORT ---
Subjective Progress Note for:: 10/20/18 Subjective:: No adverse events overnight. He is only had one dose of IV that was earlier this morning. He seems very subdued, but is not tremulous this morning. He has remained on oxygen and his breathing has improved but his lungs still sound very coarse. No more bloody bowel movements. Reason For Visit: ACUTE BLOOD LOSS ANEMIA, ACUTE LGIB Physical Exam Vital Signs: Temp Pulse Resp BP Pulse Ox 98.1 F 88 18 115/62 94 10/20/18 15:35 10/20/18 16:00 10/20/18 16:00 10/20/18 15:35 10/20/18 16:00 Intake & Output 10/19/18 10/20/18 10/21/18 06:59 06:59 06:59 Intake Total 3203 300 600 Output Total 2800 2800 300 Balance 403 -2500 300 Weight 101.6 kg 96.7 kg General appearance: PRESENT: cooperative, disheveled, no apparent distress Respiratory exam: PRESENT: decreased breath sounds, prolonged expiratory phase, symmetrical, unlabored, end expiratory wheezes. ABSENT: accessory muscle use, chest wall tenderness, crackles, rhonchi, tachypnea Cardiovascular exam: PRESENT: RRR, +S1, +S2 Pulses: PRESENT: normal carotid pulses Vascular exam: PRESENT: normal capillary refill GI/Abdominal exam: PRESENT: normal bowel sounds, soft. ABSENT: distended, guarding, rebound, tenderness Extremities exam: ABSENT: clubbing, pedal edema. PRESENT: Trace ankle edema Musculoskeletal exam: PRESENT: normal inspection. ABSENT: deformity Neurological exam: PRESENT: alert, awake, oriented to person, oriented to place, oriented to situation, other - A little tremulous Psychiatric exam: PRESENT: flat affect, normal mood Skin exam: PRESENT: dry, pallor, warm Results Laboratory Results: 10/20/18 10:43 10/19/18 12:45 10/19/18 10/20/18 18:00 10:43 WBC 8.8 RBC 3.20 L Hgb 8.4 L Hct 26.0 L MCV 81 MCH 26.3 L MCHC 32.4 RDW 19.8 H Plt Count 161 Carbonic Acid 1.02 L HCO3/H2CO3 Ratio 24:1 ABG pH 7.49 H ABG pCO2 33.8 L ABG pO2 63.5 L ABG HCO3 25.3 H ABG O2 Saturation 94.1 ABG Base Excess 2.1 FiO2 4L Impressions: Abdomen/Pelvis CT 10/16/18 00:00 IMPRESSION: Mild basilar atelectasis. There appears to be some degree of hepatic steatosis. There is limited thickening of the wall of the cecum. Correlate for inflammatory bowel disease. Chest X-Ray 10/16/18 13:25 IMPRESSION: NO ACUTE RADIOGRAPHIC FINDING IN THE CHEST. Assessment and Plan - Diagnosis (1) Acute blood loss anemia Is this a current diagnosis for this admission?: Yes Plan: Hemoglobin stable, up to 8.6 today. Monitoring H&H. (2) Acute lower GI bleeding Is this a current diagnosis for this admission?: Yes Plan: Twice daily Protonix. Will need a outpatient capsule endoscopy. (3) Alcoholism Is this a current diagnosis for this admission?: Yes Plan: Seems to be through the worst part of his withdrawal. Only had to have 1 dose of Ativan so far today. Getting vitamin supplementation. Strongly encourage cessation after this hospitalization. (4) Tobacco abuse Is this a current diagnosis for this admission?: Yes Plan: Strongly encourage cessation (5) COPD with acute exacerbation Is this a current diagnosis for this admission?: Yes Plan: He has not been formally diagnosed but I recommended that he follow-up with pulmonology as an outpatient testing. We put him on some steroids and it seems to be helping with his breathing. PRN nebulizer treatments. - Time Time Spent with patient: 15-24 minutes
[2018-10-21] MEDS: LEVETIRACETAM 500 MG TABLET PO SCH ×3 (05:08→21:12)
[2018-10-21] MEDS: PANTOPRAZOLE SODIUM 40 MG TABLET.DR PO SCH ×2 (05:08→18:24)
[2018-10-21] MEDS: METHYLPREDNISOLONE INJ 40 MG/1 ML SDV IV SCH ×3 (05:08→21:13)
[2018-10-21] MEDS: LAMOTRIGINE 100 MG TABLET PO SCH ×2 (10:36→21:12)
[2018-10-21] MEDS: NICOTINE 21 MG/24 HR PATCH.TD24 TD SCH (10:37)
[2018-10-21] MEDS: FOLIC ACID 1 MG TABLET PO SCH (10:37)
[2018-10-21] MEDS: THIAMINE HCL 100 MG TABLET PO SCH (10:37)
[2018-10-21] MEDS: LORAZEPAM INJ 2 MG/1 ML VIAL IV PRN (10:40)
--- NOTE | 2018-10-21 18:47 | PDOC PROGRESS REPORT ---
Subjective Progress Note for:: 10/21/18 Subjective:: This is 48 years old male patient with past medical history of seizure disorder on Lamictal and Keppra daily drinker about 20 beers and daily smoker about 2 to 3 packs daily sent from his primary care physician office for abnormal labs namely hemoglobin of 4.6. Patient reports this history of bright red blood per rectum of and on for the past denies but more frequent past week. Patient transfused 2 units of packed RBC and hemoglobin picked up to 8.4. His EGD and colonoscopies not revealing. Reason For Visit: ACUTE BLOOD LOSS ANEMIA, ACUTE LGIB Physical Exam Vital Signs: Temp Pulse Resp BP Pulse Ox 98.0 F 78 19 123/58 L 97 10/21/18 15:41 10/21/18 15:41 10/21/18 15:41 10/21/18 15:41 10/21/18 15:41 Intake & Output 10/20/18 10/21/18 10/22/18 06:59 06:59 06:59 Intake Total 735 793 8103 Output Total 2800 1350 450 Balance -2500 -390 796 Weight 96.7 kg 99.6 kg General appearance: PRESENT: no acute distress Head exam: PRESENT: atraumatic Eye exam: PRESENT: conjunctiva pink Neck exam: ABSENT: carotid bruit, JVD, lymphadenopathy, thyromegaly Respiratory exam: PRESENT: clear to auscultation сергей. ABSENT: rales, rhonchi, wheezes Cardiovascular exam: PRESENT: RRR. ABSENT: diastolic murmur, rubs, systolic murmur GI/Abdominal exam: PRESENT: normal bowel sounds, soft. ABSENT: distended, guarding, mass, organolmegaly, rebound, tenderness Neurological exam: PRESENT: alert, awake, oriented to time, oriented to s ituation Results Laboratory Results: 10/20/18 10:43 10/19/18 12:45 Impressions: Abdomen/Pelvis CT 10/16/18 00:00 IMPRESSION: Mild basilar atelectasis. There appears to be some degree of hepatic steatosis. There is limited thickening of the wall of the cecum. Correlate for inflammatory bowel disease. Chest X-Ray 10/16/18 13:25 IMPRESSION: NO ACUTE RADIOGRAPHIC FINDING IN THE CHEST. Assessment and Plan - Diagnosis (1) Acute blood loss anemia lower GI bleed Is this a current diagnosis for this admission?: Yes Plan: Status post packed RBC transfusion. (2) Seizure disorder Is this a current diagnosis for this admission?: Yes Plan: Continue home medication (3) Alcohol dependence Is this a current diagnosis for this admission?: Yes Plan: Patient counseled and encourage to quit drinking alcohol. (4) Tobacco dependence Is this a current diagnosis for this admission?: Yes Plan: Patient counseled
[2018-10-22] MEDS: PANTOPRAZOLE SODIUM 40 MG TABLET.DR PO SCH ×2 (05:40→17:44)
[2018-10-22] MEDS: LEVETIRACETAM 500 MG TABLET PO SCH ×3 (05:40→21:43)
[2018-10-22] MEDS: METHYLPREDNISOLONE INJ 40 MG/1 ML SDV IV SCH ×3 (05:41→21:45)
[2018-10-22] MEDS: LORAZEPAM INJ 2 MG/1 ML VIAL IV PRN (06:08)
[2018-10-22] MEDS: THIAMINE HCL 100 MG TABLET PO SCH (09:33)
[2018-10-22] MEDS: LAMOTRIGINE 100 MG TABLET PO SCH ×2 (09:33→21:45)
[2018-10-22] MEDS: FOLIC ACID 1 MG TABLET PO SCH (09:33)
[2018-10-22] MEDS: NICOTINE 21 MG/24 HR PATCH.TD24 TD SCH (09:34)
--- NOTE | 2018-10-22 15:24 | PDOC PROGRESS REPORT ---
Subjective Progress Note for:: 10/22/18 Subjective:: Patient seen sitting up in bed and enjoying his discharge. He is awake and alert oriented. Reportedly his O2 saturation dropped to 86% while at rest so probably patient requires home oxygen treatment. Reason For Visit: ACUTE BLOOD LOSS ANEMIA, ACUTE LGIB Physical Exam Vital Signs: Temp Pulse Resp BP Pulse Ox 98.2 F 76 18 121/66 93 10/22/18 11:27 10/22/18 14:00 10/22/18 11:27 10/22/18 11:27 10/22/18 11:27 Intake & Output 10/21/18 10/22/18 10/23/18 06:59 06:59 06:59 Intake Total 960 1246 Output Total 1350 1075 Balance -390 171 Weight 99.6 kg 97.8 kg General appearance: PRESENT: mild distress Head exam: PRESENT: atraumatic Eye exam: PRESENT: conjunctiva pink Mouth exam: PRESENT: moist Teeth exam: PRESENT: poor dentation Neck exam: ABSENT: carotid bruit, JVD, lymphadenopathy, thyromegaly Respiratory exam: PRESENT: clear to auscultation сергей. ABSENT: rales, rhonchi, wheezes Cardiovascular exam: PRESENT: RRR. ABSENT: diastolic murmur, rubs, systolic murmur GI/Abdominal exam: PRESENT: normal bowel sounds, soft. ABSENT: distended, guarding, mass, organolmegaly, rebound, tenderness Neurological exam: PRESENT: alert, awake Results Laboratory Results: 10/20/18 10:43 10/19/18 12:45 Impressions: Abdomen/Pelvis CT 10/16/18 00:00 IMPRESSION: Mild basilar atelectasis. There appears to be some degree of hepatic steatosis. There is limited thickening of the wall of the cecum. Correlate for inflammatory bowel disease. Chest X-Ray 10/16/18 13:25 IMPRESSION: NO ACUTE RADIOGRAPHIC FINDING IN THE CHEST. Assessment and Plan - Diagnosis (1) Acute blood loss anemia lower GI bleed Is this a current diagnosis for this admission?: Yes Plan: Status post packed RBC transfusion. (2) Seizure disorder Is this a current diagnosis for this admission?: Yes Plan: Continue home medication (3) Alcohol dependence Is this a current diagnosis for this admission?: Yes Plan: Patient counseled and encourage to quit drinking alcohol. (4) Tobacco dependence Is this a current diagnosis for this admission?: Yes Plan: Patient counseled
[2018-10-23 05:58] LABS: HEMATOCRIT 24.1 % (37.9-51.0); MEAN CORPUSCULAR HEMOGLOBIN 26.3 pg (27.0-33.4); MEAN CORPUSCULAR HGB CONC 32.3 g/dL (32.0-36.0); MEAN CORPUSCULAR VOLUME 82 fl (80-97); PLATELET COUNT 129 10^3/uL (150-450); RED BLOOD COUNT 2.95 10^6/uL (4.35-5.55); RED CELL DISTRIBUTION WIDTH 20.9 % (11.5-14.0); WHITE BLOOD COUNT 9.1 10^3/uL (4.0-10.5)
[2018-10-23 06:00] LABS: HEMOGLOBIN 7.8 g/dL (13.5-17.0)
[2018-10-23] MEDS: PANTOPRAZOLE SODIUM 40 MG TABLET.DR PO SCH ×2 (06:24→16:49)
[2018-10-23] MEDS: LEVETIRACETAM 500 MG TABLET PO SCH ×3 (06:24→21:42)
[2018-10-23] MEDS: METHYLPREDNISOLONE INJ 40 MG/1 ML SDV IV SCH ×3 (06:24→21:42)
[2018-10-23] MEDS ORDERED: NORMAL SALINE 250 ML IV PRN ×2 (09:14)
[2018-10-23] MEDS: FOLIC ACID 1 MG TABLET PO SCH (09:27)
[2018-10-23] MEDS: LORAZEPAM INJ 2 MG/1 ML VIAL IV PRN ×3 (09:27→18:31)
[2018-10-23] MEDS: NICOTINE 21 MG/24 HR PATCH.TD24 TD SCH (09:27)
[2018-10-23] MEDS: THIAMINE HCL 100 MG TABLET PO SCH (09:32)
[2018-10-23] MEDS: LAMOTRIGINE 100 MG TABLET PO SCH ×2 (09:32→21:42)
--- NOTE | 2018-10-23 15:28 | PDOC PROGRESS REPORT ---
Subjective Progress Note for:: 10/23/18 Subjective:: Patient is clinically stable and does not have new complaint but his hemoglobin dropped from 8.4-7.8. I will transfuse 1 unit of blood and check his hemoglobin in the a.m. if he remains stable he is potential discharge for tomorrow. Reason For Visit: ACUTE BLOOD LOSS ANEMIA, ACUTE LGIB Physical Exam Vital Signs: Temp Pulse Resp BP Pulse Ox 97.9 F 70 18 136/64 H 97 10/23/18 11:06 10/23/18 11:06 10/23/18 11:06 10/23/18 11:06 10/23/18 11:06 Intake & Output 10/22/18 10/23/18 10/24/18 06:59 06:59 06:59 Intake Total 1246 1280 750 Output Total 1075 850 200 Balance 171 430 550 Weight 97.8 kg 98.7 kg General appearance: PRESENT: no acute distress Head exam: PRESENT: atraumatic Teeth exam: PRESENT: poor dentation Neck exam: ABSENT: carotid bruit, JVD, lymphadenopathy, thyromegaly Respiratory exam: PRESENT: clear to auscultation сергей. ABSENT: rales, rhonchi, wheezes Cardiovascular exam: PRESENT: RRR. ABSENT: diastolic murmur, rubs, systolic murmur GI/Abdominal exam: PRESENT: normal bowel sounds, soft. ABSENT: distended, guarding, mass, organolmegaly, rebound, tenderness Neurological exam: PRESENT: alert, awake Results Laboratory Results: 10/23/18 05:09 10/19/18 12:45 10/23/18 10/23/18 05:09 10:27 WBC 9.1 RBC 2.95 L Hgb 7.8 L Hct 24.1 L MCV 82 MCH 26.3 L MCHC 32.3 RDW 20.9 H Plt Count 129 L Blood Type O POSITIVE Antibody Screen NEGATIVE Impressions: Abdomen/Pelvis CT 10/16/18 00:00 IMPRESSION: Mild basilar atelectasis. There appears to be some degree of hepatic steatosis. There is limited thickening of the wall of the cecum. Correlate for inflammatory bowel disease. Chest X-Ray 10/16/18 13:25 IMPRESSION: NO ACUTE RADIOGRAPHIC FINDING IN THE CHEST. Assessment and Plan - Diagnosis (1) Acute blood loss anemia lower GI bleed Is this a current diagnosis for this admission?: Yes Plan: Hemoglobin dropped from 8.4-7.8. Transfuse 1 unit of packed RBC. Check hemoglobin and hematocrit in a.m. (2) Seizure disorder Is this a current diagnosis for this admission?: Yes Plan: Continue home medication (3) Alcohol dependence Is this a current diagnosis for this admission?: Yes Plan: Patient counseled and encourage to quit drinking alcohol. (4) Tobacco dependence Is this a current diagnosis for this admission?: Yes Plan: Patient counseled
[2018-10-23] MEDS ORDERED: DIPHENHYDRAMINE HCL 50 MG/ML VIAL ONE (18:18)
[2018-10-24 01:19] LABS: HEMATOCRIT 27.5 % (37.9-51.0); HEMOGLOBIN 8.8 g/dL (13.5-17.0); MEAN CORPUSCULAR HEMOGLOBIN 26.1 pg (27.0-33.4); MEAN CORPUSCULAR VOLUME 82 fl (80-97); PLATELET COUNT 134 10^3/uL (150-450); RED BLOOD COUNT 3.37 10^6/uL (4.35-5.55); RED CELL DISTRIBUTION WIDTH 20.4 % (11.5-14.0); WHITE BLOOD COUNT 9.1 10^3/uL (4.0-10.5)
[2018-10-24] MEDS: PANTOPRAZOLE SODIUM 40 MG TABLET.DR PO SCH (06:45)
[2018-10-24] MEDS: METHYLPREDNISOLONE INJ 40 MG/1 ML SDV IV SCH ×2 (06:45→15:02)
[2018-10-24] MEDS: LEVETIRACETAM 500 MG TABLET PO SCH ×2 (06:45→15:01)
[2018-10-24] MEDS: LORAZEPAM INJ 2 MG/1 ML VIAL IV PRN ×4 (08:03→15:30)
[2018-10-24 08:27] LABS: HEMATOCRIT 30.1 % (37.9-51.0); HEMOGLOBIN 9.6 g/dL (13.5-17.0); MEAN CORPUSCULAR HEMOGLOBIN 26.3 pg (27.0-33.4); MEAN CORPUSCULAR VOLUME 82 fl (80-97); PLATELET COUNT 157 10^3/uL (150-450); RED BLOOD COUNT 3.67 10^6/uL (4.35-5.55); RED CELL DISTRIBUTION WIDTH 20.7 % (11.5-14.0)
[2018-10-24] MEDS ORDERED: DIPHENHYDRAMINE HCL 50 MG/ML VIAL ONE ×2 (08:39→11:02)
--- NOTE | 2018-10-24 09:21 | PDOC DISCHARGE SUMMARY ---
General - Admit/Disc Date/PCP Admission Date/Primary Care Provider: 10/16/18 16:19 Discharge Date: 10/24/18 - Discharge Diagnosis (1) Acute blood loss anemia lower GI bleed Is this a current diagnosis for this admission?: Yes (2) Seizure disorder Is this a current diagnosis for this admission?: Yes (3) Alcohol dependence Is this a current diagnosis for this admission?: Yes (4) Tobacco dependence Is this a current diagnosis for this admission?: Yes - Additional Information Resuscitation Status: Full Code Home Medications: Lamotrigine [Lamictal] 150 mg PO Q12 10/16/18 Levetiracetam [Keppra] 1,000 mg PO Q8 10/16/18 History of Present Illness History of Present Illness: TOAN SANTOS is a 48 year old male who smokes 2 to 3 packs of cigarettes a day and drinks about 20 beers a day with a medical history remarkable for epilepsy who presents to the ER after being called by his primary care office with abnormal labs. He just moved here from [place] and was getting established with the [facility] and he had some blood work done. They called him and said his hemoglobin was really low and so they sent him to the ER. He came in and his hemoglobin was 4.6. He reports a history of bright red blood per rectum off and on for the past month but more frequent the past week. He does not take any blood thinners. He is never had a colonoscopy. He does not have any abdominal pain. He has not had any melena. No hematemesis. No nosebleeds. He does not take aspirin or antiplatelets. The only supplement that he takes is a multivitamin. He only takes 2 medications at home, Lamictal and Keppra. Hospital Course Hospital Course: This is 48 years old male patient with past medical history of seizure disorder on Lamictal and Keppra daily drinker about 20 beers and daily smoker about 2 to 3 packs daily sent from his primary care physician office for abnormal labs namely hemoglobin of 4.6. Patient reports this history of bright red blood per rectum of and on for the past denies but more frequent past week. Patient transfused 2 units of packed RBC and hemoglobin picked up to 8.4. His EGD and colonoscopies not revealing. His hemoglobin again dropped to 7.6 so yesterday he was transfused with 1 unit of packed RBC today his hemoglobin is 9.6. This morning I seen patient while patient actively participating with physical therapy. He is awake alert oriented he is not in pain or distress. Dr. Watt recommended to discharge him if his hemoglobin is stable and follow-up with him as outpatient. Patient strongly advised to do an encouraged to quit smoking and to remain sober. And he voices agreement. Physical Exam Vital Signs: Temp Pulse Resp BP Pulse Ox 97.6 F 66 18 134/68 H 98 10/24/18 06:59 10/24/18 06:59 10/24/18 06:59 10/24/18 06:59 10/24/18 06:59 Intake & Output 10/23/18 10/24/18 10/25/18 06:59 06:59 06:59 Intake Total 1280 1975 Output Total 850 800 Balance 430 1175 Weight 98.7 kg General appearance: PRESENT: no acute distress Head exam: PRESENT: atraumatic Teeth exam: PRESENT: poor dentation Neck exam: ABSENT: carotid bruit, JVD, lymphadenopathy, thyromegaly Respiratory exam: PRESENT: clear to auscultation сергей. ABSENT: rales, rhonchi, wheezes Cardiovascular exam: PRESENT: RRR. ABSENT: diastolic murmur, rubs, systolic murmur GI/Abdominal exam: PRESENT: normal bowel sounds, soft. ABSENT: distended, guarding, mass, organolmegaly, rebound, tenderness Neurological exam: PRESENT: alert, awake, oriented to time, oriented to situation Results Laboratory Results: 10/24/18 07:53 10/19/18 12:45 10/23/18 10/24/18 10/24/18 10:27 01:11 07:53 WBC 9.1 11.0 H RBC 3.37 L 3.67 L Hgb 8.8 L 9.6 L Hct 27.5 L 30.1 L MCV 82 82 MCH 26.1 L 26.3 L MCHC 32.0 32.0 RDW 20.4 H 20.7 H Plt Count 134 L 157 Blood Type O POSITIVE Antibody Screen NEGATIVE Impressions: Abdomen/Pelvis CT 10/16/18 00:00 IMPRESSION: Mild basilar atelectasis. There appears to be some degree of hepatic steatosis. There is limited thickening of the wall of the cecum. Correlate for inflammatory bowel disease. Chest X-Ray 10/16/18 13:25 IMPRESSION: NO ACUTE RADIOGRAPHIC FINDING IN THE CHEST. Qualifiers - * PATIENT BEING DISCHARGED WITH ANY OF THE FOLLOWING DIAGNOSIS: No Acute Heart Failure Is this a Heart Failure Patient?: No
[2018-10-24] MEDS: NICOTINE 21 MG/24 HR PATCH.TD24 TD SCH (09:50)
[2018-10-24] MEDS: FOLIC ACID 1 MG TABLET PO SCH (09:54)
[2018-10-24 14:46] VITALS: BP 134/67
[2018-10-24] MEDS: LAMOTRIGINE 100 MG TABLET PO SCH (14:53)
[2018-10-24] MEDS: THIAMINE HCL 100 MG TABLET PO SCH (14:54)
== END 2018-10-24 16:52 | disposition home or self-care (01) | DRG 378 ==
LOC: ER 13:01 → EH 16:19 → 3S 18:57
PROVIDERS: ADMIT Family Medicine; ATTEND Family Medicine
PROC: 30233N1 Transfusion of Nonautologous Red Blood Cells into Peripheral Vein, Percutaneous Approach (ICD-10-PCS; 2018-10-16)
PROC: 0DJD8ZZ Inspection of Lower Intestinal Tract, Via Natural or Artificial Opening Endoscopic (ICD-10-PCS; principal; 2018-10-17 12:45)
PROC: 0DB58ZX Excision of Esophagus, Via Natural or Artificial Opening Endoscopic, Diagnostic (ICD-10-PCS; 2018-10-17 12:45)
DX: K92.2 Gastrointestinal hemorrhage, unspecified (principal); D62 Acute posthemorrhagic anemia; F10.239 Alcohol dependence with withdrawal, unspecified; G40.909 Epilepsy, unspecified, not intractable, without status epilepticus; F17.210 Nicotine dependence, cigarettes, uncomplicated; K64.8 Other hemorrhoids; Z79.899 Other long term (current) drug therapy
CPT/HCPCS: 36415; 36430; 43239; 45378; 71045; 74177; 80053; 81001; 82803; 85025; 85027; 85610; 85730; 86850; 86900; 86901; 86920; 88305; 88312; 94640; 96374; 99291; J0171; J1200; J1610; J1940; J2060; J2250; J2310; J2405; J2920; J2930; J3010; J3360; J3411; J3475; J3480; J3490; J7030; J7620; P9016; S0164

== ENCOUNTER 2018-11-03 15:44 | Inpatient (IN) | payer MEDICAID, MEDICARE ==
--- NOTE | 2018-11-03 19:12 | ER Document Report ---
ED Medical Screen (RME) - General Chief Complaint: Pain All Over Stated Complaint: ALL OVER BODY PAIN Time Seen by Provider: 11/03/18 19:02 Mode of Arrival: Wheelchair Information source: Patient Notes: 48-year-old male presented to ED for complaint of pain all over worse to his left and right upper extremity worse on the right states the pain is now spread down to his legs as well. He was seen here yesterday and the physician recommended admission with IV antibiotics. He states he was not going to stay and did leave AGAINST MEDICAL ADVICE. He does have a history of alcohol and tobacco abuse cirrhosis and seizures. He states until 3 weeks ago he was drinking a case of beer a day but has not drank anything in 3 to 4 weeks. He states the pain is much worse today so he needs to come back and get reevaluated. He states the pain started 2 to 3 weeks ago. Repeat of labs will be done x-ray of right shoulder and elbow will be obtained and patient will be evaluated by provider again. I have greeted and performed a rapid initial assessment of this patient. A comprehensive ED assessment and evaluation of the patient, analysis of test results and completion of medical decision making process will be conducted by an additional ED providers. Dictation of this chart was performed using voice recognition software; therefore, there may be some unintended grammatical errors. TRAVEL OUTSIDE OF THE [place] IN LAST 30 DAYS: No - Related Data Allergies/Adverse Reactions: No Known Allergies Allergy (Verified 11/03/18 15:57) Past Medical History Neurological Medical History: Reports: Hx Seizures - EPILEPSY Renal/ Medical History: Denies: Hx Peritoneal Dialysis
--- NOTE | 2018-11-03 19:58 | RADIOLOGY REPORT (SQ) ---
EXAM DESCRIPTION: ELBOW BILATERAL 2 VIEWS MIN COMPLETED DATE/TIME: 11/03/2018 7:40 pm REASON FOR STUDY: Worsening pain COMPARISON: None. NUMBER OF VIEWS: Four views. TECHNIQUE: AP and lateral radiographic images acquired of the right and left elbow. LIMITATIONS: None. FINDINGS: MINERALIZATION: Normal. BONES: No acute fracture or dislocation. No worrisome bone lesions. Tiny triceps enthesophytes are present. JOINT: No effusion. SOFT TISSUES: No soft tissue swelling. No foreign body. OTHER: No other significant finding. IMPRESSION: No evidence of acute osseous injury or significant degenerative change. TECHNICAL DOCUMENTATION: JOB ID: [id number] [employer]- All Rights Reserved Reading location - IP/workstation name: [email or web address]
--- NOTE | 2018-11-03 20:00 | RADIOLOGY REPORT (SQ) ---
EXAM DESCRIPTION: SHOULDER BILAT 2 OR MORE VIEWS COMPLETED DATE/TIME: 11/03/2018 7:40 pm REASON FOR STUDY: Worsening pain COMPARISON: None. NUMBER OF VIEWS: Six views. TECHNIQUE: Internal rotation, external rotation, and Y view images acquired of the right and left sh oulder. LIMITATIONS: None. FINDINGS: MINERALIZATION: Normal. BONES: No acute fracture or dislocation. No worrisome bone lesions. Incidental note is made of a Hi ll-Sachs compression deformity on the left. JOINTS: No dislocation. VISUALIZED LUNGS AND RIBS: No pneumothorax. No rib fracture. SOFT TISSUES: Calcific tendinopathy is seen within the left rotator cuff. OTHER: No other significant finding. IMPRESSION: Calcific tendinopathy and sequela of previous shoulder dislocation within the left shoul raya. Otherwise unremarkable radiographs of the bilateral shoulders. TECHNICAL DOCUMENTATION: JOB ID: [id number] [employer]- All Rights Reserved Reading location - IP/workstation name: [email or web address]
[2018-11-03 20:22] LABS: HEMATOCRIT 31.5 % (37.9-51.0); HEMOGLOBIN 10.3 g/dL (13.5-17.0); MEAN CORPUSCULAR HEMOGLOBIN 26.1 pg (27.0-33.4); MEAN CORPUSCULAR HGB CONC 32.8 g/dL (32.0-36.0); MEAN CORPUSCULAR VOLUME 80 fl (80-97); PLATELET COUNT 135 10^3/uL (150-450); RED BLOOD COUNT 3.96 10^6/uL (4.35-5.55); RED CELL DISTRIBUTION WIDTH 23.5 % (11.5-14.0); WHITE BLOOD COUNT 20.7 10^3/uL (4.0-10.5)
[2018-11-03 20:24] LABS: APPEARANCE,URINE SLIGHTLY-CLOUDY; BILIRUBIN,URINE NEGATIVE (NEGATIVE); COLOR,URINE AMBER; GLUCOSE, URINE NEGATIVE (NEGATIVE); KETONES,URINE NEGATIVE (NEGATIVE); LEUKOCYTE ESTERASE,URINE NEGATIVE (NEGATIVE); NITRITE,URINE NEGATIVE (NEGATIVE); PROTEIN,URINE NEGATIVE (NEGATIVE)
[2018-11-03 20:41] LABS: ABSOLUTE LYMPHOCYTES# (MANUAL) 2.5 10^3/uL (0.5-4.7); ABSOLUTE MONOCYTES # (MANUAL) 2.9 10^3/uL (0.1-1.4); ALANINE AMINOTRANSFERASE 42 U/L (21-72); ALBUMIN 3.8 g/dL (3.5-5.0); ALKALINE PHOSPHATASE 172 U/L (38-126); ANION GAP 11 (5-19); ASPARTATE AMINO TRANSFERASE 73 U/L (17-59); BAND NEUTROPHILS % (MANUAL) 1 % (3-5); BASOPHILS % (MANUAL) 0 % (0-2); BILIRUBIN,DIRECT 1.5 mg/dL (0.0-0.4); BILIRUBIN,TOTAL 3.1 mg/dL (0.2-1.3); BLOOD UREA NITROGEN 11 mg/dL (7-20); C-REACTIVE PROTEIN 47.9 mg/L (<10.0); CALCIUM 9.1 mg/dL (8.4-10.2); CARBON DIOXIDE 23 mmol/L (22-30); CHLORIDE 100 mmol/L (98-107); EOSINOPHILS % (MANUAL) 0 % (0-6); GLUCOSE 98 mg/dL (75-110); LYMPHOCYTES % (MANUAL) 12 % (13-45); MONOCYTES % (MANUAL) 14 % (3-13); SEGMENTED NEUTROPHILS % (MAN) 73 % (42-78); SODIUM 134.3 mmol/L (137-145); TOTAL CELLS COUNTED 100; TOTAL PROTEIN 7.7 g/dL (6.3-8.2)
[2018-11-03 20:43] LABS: ANISOCYTOSIS 3+
[2018-11-03 20:44] LABS: HYPOCHROMASIA 2+; PLATELET COMMENT DECREASED
[2018-11-03 21:00] LABS: ERYTHROCYTE SEDIMENTATION RATE 80 mm/hr (0-15)
[2018-11-03] MEDS ORDERED: NORMAL SALINE 1000 ML 1,000 ML IV ONE (22:19)
--- NOTE | 2018-11-03 22:37 | ER Document Report ---
ED General - General Chief Complaint: Pain All Over Stated Complaint: ALL OVER BODY PAIN Time Seen by Provider: 11/03/18 19:02 Mode of Arrival: Wheelchair Notes: Patient is a 48-year-old male who presents with complaint of pain mostly in his upper extremities but then also some pain down into his ankles is worse in the right. Upper extremity pain is equal bilaterally is mostly in elbows and shoulders. Pain started several days ago but has worsened. He was seen here yesterday and work-up which was concerning for leukocytosis and elevated ESR and CRP. He was informed that he should be admitted but patient refused because he had to go to his son's graduation today. He went to his son's graduation today and came here. He says pain is remained about the same. He was recently admitted to the hospital and discharged approximately week and a half ago after having blood transfusions for GI bleed. He is a former alcoholic but has not drank in the last 2 weeks. No fevers. No vomiting. No abdominal pain. No chest pain. No headache. No neck pain. No fevers at home. No other complaints at this time. No recent trauma or injuries. TRAVEL OUTSIDE OF THE [place] IN LAST 30 DAYS: No - Related Data Allergies/Adverse Reactions: No Known Allergies Allergy (Verified 11/03/18 21:40) Past Medical History - General Information source: Patient - Social History Smoking Status: Current Every Day Smoker Frequency of alcohol use: Occasional Drug Abuse: None Family History: Reviewed & Not Pertinent Patient has suicidal ideation: No Patient has homicidal ideation: No Neurological Medical History: Reports: Hx Seizures - EPILEPSY Renal/ Medical History: Denies: Hx Peritoneal Dialysis Review of Systems - Review of Systems Notes: My Normal Review Basic REVIEW OF SYSTEMS: CONSTITUTIONAL : Denies fever, chills, or sweats. Denies recent illness. EENT: Denies eye, ear, throat, or mouth pain or symptoms. Denies nasal or sinus congestion. CARDIOVASCULAR: Denies chest pain. RESPIRATORY: Denies cough, cold, or chest congestion. Denies shortness of breath, difficulty breathing, or wheezing. GASTROINTESTINAL: Denies abdominal pain. Denies nausea, vomiting, or diarrhea. Denies constipation. Last BM: GENITOURINARY: Denies difficulty urinating, painful urination, burning, freq uency, or blood in urine. FEMALE GENITOURINARY: Denies vaginal bleeding, abnormal or irregular periods. LMP: MUSCULOSKELETAL: Pain in joints of extremities. SKIN: Denies rash or skin lesions. HEMATOLOGIC : Denies easy bruising or bleeding. LYMPHATIC: Denies swollen, enlarged glands. NEUROLOGICAL: Denies altered mental status or loss of consciousness. Denies headache. Denies weakness or paralysis or loss of use of either side. Denies problems with gait or speech. Denies sensory or motor loss. ALL OTHER SYSTEMS REVIEWED AND NEGATIVE. Physical Exam - Vital signs Vitals: Temp Pulse Resp BP Pulse Ox 99.9 F 99 20 145/62 H 94 11/03/18 16:25 11/03/18 16:25 11/03/18 16:25 11/03/18 16:25 11/03/18 16:25 - Notes Notes: General Appearance: Well nourished, alert, cooperative, no acute distress, no obvious discomfort. Vitals: reviewed, See vital signs table. Head: no swelling or tenderness to the head Eyes: PERRL, EOMI, Conjuctiva clear Mouth: No decreasd moisture Throat: No tonsillar inflammation, No airway obstruction, No lymphadenopathy Neck: Supple, no neck tenderness Lungs: No wheezing, No rales, No rhonci, No accessory muscle use, good air exc hange bilaterally. Heart: Normal rate, Regular rythm, No murmur, no rub Abdomen: Normal BS, soft, No rigidity, No abdominal tenderness, No guarding, no rebound, no abdominal masses, no organomegaly Extremities: Patient does have equal strength bilaterally. He is globally weak all over but he does not have a focal region that is more weak in comparison to the rest of his extremities. He does have pain with range of motion of both elbows and both shoulders; however, he does not have any restriction to range of motion. Patient does have some mild pain to the right ankle with some swelling but there is no abnormal warmth or redness. There is no abnormal warmth or redness to any of his joints. Good distal pulses. Good capillary refill. Skin: warm, dry, appropriate color, no rash Neuro: speech clear, oriented x 3, normal affect, responds appropriately to questions. Course - Re-evaluation Re-evalutation: 11/04/18 00:32 Because of the patient's joint pains and leukocytosis is not clear. Does not appear that he has infected joint of the joints or not red or hot or restricted to motion; however, he was recently hospitalized and therefore we have sent cultures to make sure that he does not grow out any bacterial organisms in his blood culture. Patient on exam is weak and has difficulty getting out of bed on his own. He has high leukocytosis with elevated inflammatory markers and therefore felt appropriate for him to be admitted. I did speak with the hospitalist, Dr. Davis, who agrees to evaluate the patient for admission. Dictation of this chart was performed using voice recognition software; theref ore, there may be some unintended grammatical errors. - Vital Signs Vital signs: Temp Pulse Resp BP Pulse Ox 98.3 F 91 16 145/63 H 94 11/04/18 03:53 11/04/18 03:53 11/04/18 03:53 11/04/18 03:53 11/04/18 03:53 - Laboratory Result Diagrams: 11/03/18 20:04 11/04/18 05:16 Laboratory results interpreted by me: 11/03/18 11/03/18 11/03/18 19:49 20:04 20:04 WBC 20.7 H RBC 3.96 L Hgb 10.3 L Hct 31.5 L MCH 26.1 L RDW 23.5 H Plt Count 135 L Band Neutrophils % 1 L Lymphocytes % (Manual) 12 L Monocytes % (Manual) 14 H Abs Neuts (Manual) 15.3 H Abs Monocytes (Manual) 2.9 H ESR 80 H Sodium 134.3 L Total Bilirubin 3.1 H Direct Bilirubin 1.5 H AST 73 H Alkaline Phosphatase 172 H C-Reactive Protein 47.9 H Urine Urobilinogen 4.0 H Discharge - Discharge Clinical Impression: Total body pain Leukocytosis Qualifiers: Leukocytosis type: unspecified Qualified Code(s): D72.829 - Elevated white blood cell count, unspecified Condition: Stable Disposition: ADMITTED INPATIENT Admitting Provider: Susan (Hospitalist)
[2018-11-04] MEDS ORDERED: ONDANSETRON HCL INJ/PF 4 MG/2 ML SDV IV PRN (00:07)
[2018-11-04] MEDS ORDERED: MAGNESIUM HYDROXIDE SUSP 30 ML UDCUP PO PRN (00:07)
[2018-11-04] MEDS ORDERED: TEMAZEPAM 15 MG CAPSULE PO PRN (00:07)
[2018-11-04] MEDS ORDERED: MAG HYDROX/AL HYDROX/SIMETH SUSP 30 ML UDCUP PO PRN (00:07)
[2018-11-04] MEDS ORDERED: ACETAMINOPHEN 325 MG TABLET PO PRN (00:16)
[2018-11-04] MEDS ORDERED: MORPHINE SULFATE 10 MG/ML INJ IV PRN ×2 (00:16→00:57)
[2018-11-04] MEDS ORDERED: LEVALBUTEROL HCL NEB 0.63 MG/3 ML AMPUL NEB PRN (00:16)
[2018-11-04] MEDS ORDERED: TERBINAFINE HCL 250 MG TABLET PO ONE (00:20)
[2018-11-04 01:51] LABS: ALANINE AMINOTRANSFERASE 40 U/L (21-72); ALBUMIN 3.3 g/dL (3.5-5.0); ALKALINE PHOSPHATASE 150 U/L (38-126); ASPARTATE AMINO TRANSFERASE 59 U/L (17-59); BILIRUBIN,DIRECT 1.5 mg/dL (0.0-0.4); BILIRUBIN,TOTAL 3.2 mg/dL (0.2-1.3); TOTAL PROTEIN 6.7 g/dL (6.3-8.2)
[2018-11-04 02:08] LABS: FREE T3 3.91 pg/mL (2.77-5.27); FREE T4 (FREE THYROXINE) 2.11 ng/dL (0.78-2.19)
[2018-11-04 02:22] LABS: THYROID STIMULATING HORMONE 1.14 uIU/mL (0.47-4.68)
[2018-11-04 03:26] LABS: URINE AMPHETAMINES SCREEN NEGATIVE; URINE BARBITURATES SCREEN NEGATIVE; URINE BENZODIAZEPINES SCREEN UNCONFIRMED POSITIVE; URINE COCAINE SCREEN NEGATIVE; URINE MARIJUANA (THC) SCREEN UNCONFIRMED POSITIVE; URINE METHADONE SCREEN NEGATIVE; URINE PHENCYCLIDINE SCREEN NEGATIVE
[2018-11-04] MEDS: HEPARIN SOD (PORCINE) 5,000 UNIT/ML 1 ML SYRINGE SUBCUT SCH ×3 (05:02→21:31)
--- NOTE | 2018-11-04 05:04 | PDOC H&P ---
History of Present Illness Admission Date/PCP: 11/03/2018 20:45 No local PCP Patient complains of: Painful extremities History of Present Illness: TOAN SANTOS is a 48 year old male with a 3-week history of progressively worsening pain in his extremities. He admits that his pain started in the shoulders and elbows of his bilateral upper extremities 3 weeks ago being somewhat worse on the right than the left and over the last 1 to 2 weeks the pain has come to involve his lower extremities again more significantly on the right than the left and especially the right ankle. The pain is worsened with physical activity and is eased by rest. He was seen in the emergency room yesterday and elected to not be admitted to the hospital leaving AGAINST MEDICAL ADVICE at that time due to his desire to attend a family function. He returns today because his pain continues to be severe. He denies any recent trauma. He does admit to a recent hospitalization for severe anemia in which he received multiple blood transfusions. He denies any associated or accompanying signs or symptoms. He denies prior similar episodes. He has not identified any additional aggravating or ameliorating factors for his pain. In the emergency room he was found to have no radiographic evidence of injury or other acute changes on x-rays of his right shoulder and elbow. His CBC revealed an elevated white count of 20,000 which is slightly increased from the white blood count of 19,000 yesterday. His erythrocyte sedimentation rate is 80 and his CRP is 47.9. His examination showed some swelling of his right ankle with tenderness but no erythema or increased warmth. The remainder of his ER evaluation was unremarkable or consistent with a previously established baseline. He was subsequently admitted to the hospital for further evaluation and treatment. Past Medical History Cardiac Medical History: Denies: Coronary Artery Disease, Hypertension Pulmonary Medical History: Denies: Asthma, Chronic Obstructive Pulmonary Disease (COPD), Respiratory Failure EENT Medical History: Denies: Cataracts, Ears - Hearing aids Neurological Medical History: Reports: Seizures - EPILEPSY Denies: Hemorrhagic CVA, Ischemic CVA, Multiple Sclerosis Endocrine Medical History: Denies: Diabetes Mellitus Type 1, Diabetes Mellitus Type 2, Hyperthyroidism, Hypothyroidism Renal/ Medical History: Denies: Chronic Kidney Disease, Nephrolithiasis Malignancy Medical History: Reports: None GI Medical History: Reports: Other - Recent gastrointestinal hemorrhage requiring multiple blood transfusions Denies: Cirrhosis, Crohn's Disease, Hepatitis, Ulcerative Colitis Musculoskeltal Medical History: Denies: Arthritis, Fibromyalgia, Gout Skin Medical History: Denies: Eczema, Psoriasis Psychiatric Medical History: Reports: Alcohol Dependency, Tobacco Dependency Denies: Substance Abuse Traumatic Medical History: Reports: None Hematology: Reports: Anemia, Other - Recently received multiple blood transfusions for a GI bleed Denies: Bleeding Tendencies Infectious Medical History: Reports: None Past Surgical History Past Surgical History: Reports: Other - EGD and colonoscopy Social History Information Source: Patient Smoking Status: Current Every Day Smoker Frequency of Alcohol Use: None - Stop drinking 3 weeks ago until that time he consumed a case of beer every day. Hx Recreational Drug Use: No Drugs: None Hx Prescription Drug Abuse: No - Advance Directive Resuscitation Status: Full Code Surrogate healthcare decision maker:: Char Santos Family History Family History: CAD, Malignancy, Other - Epilepsy and cirrhosis Parental Family History Reviewed: Yes Children Family History Reviewed: No Sibling(s) Family History Reviewed.: Yes Medication/Allergy Home Medications: Lamotrigine [Lamictal] 150 mg PO Q12 10/16/18 Levetiracetam [Keppra] 1,000 mg PO Q8 10/16/18 Folic Acid [Folvite 1 mg Tablet] 1 mg PO DAILY #30 tablet 10/24/18 Thiamine HCl [Thiamine 100 mg Tablet] 100 mg PO DAILY #30 tablet 10/24/18 Furosemide [Lasix 40 mg Tablet] 40 mg PO QAM 11/03/18 Thiamine Mononitrate [Vitamin B-1] 100 mg PO DAILY 11/03/18 Vitamin B Complex 1 each PO DAILY 11/03/18 Allergies/Adverse Reactions: No Known Allergies Allergy (Verified 11/03/18 21:40) Review of Systems Constitutional: ABSENT: chills, fever(s) Eyes: ABSENT: visual disturbances, other - Ocular pain Ears: ABSENT: hearing changes, other - Ear pain Nose, Mouth, and Throat: ABSENT: mouth pain, sore throat Cardiovascular: ABSENT: chest pain, dyspnea on exertion, edema, orthropnea, palpitations Respiratory: ABSENT: dyspnea, hemoptysis Gastrointestinal: ABSENT: abdominal pain, constipation, diarrhea, nausea, vomiting Genitourinary: ABSENT: dysuria, hematuria Musculoskeletal: PRESENT: as per HPI, other - Pain in the joints of bilateral extremities. ABSENT: back pain, joint swelling, muscle weakness Integumentary: ABSENT: pruritus, rash Neurological: ABSENT: confusion, convulsions, focal weakness, memory loss, syncope Psychiatric: ABSENT: anxiety, depression Endocrine: ABSENT: cold intolerance, heat intolerance Hematologic/Lymphatic: ABSENT: easy bleeding, easy bruising Physical Exam General appearance: PRESENT: cooperative, mild distress - Secondary to discomfort in his extremities Head exam: PRESENT: atraumatic, normocephalic Eye exam: ABSENT: conjunctival injection, scleral icterus Ear exam: PRESENT: normal external ear exam. ABSENT: bleeding, drainage Mouth exam: PRESENT: dry mucosa, neck supple Neck exam: ABSENT: thyromegaly, tracheal deviation Respiratory exam: PRESENT: clear to auscultation сергей, symmetrical, unlabored Cardiovascular exam: PRESENT: RRR. ABSENT: clicks, gallop, rubs Pulses: PRESENT: normal radial pulses, normal dorsalis pedis pul Vascular exam: PRESENT: normal capillary refill. ABSENT: pallor GI/Abdominal exam: PRESENT: normal bowel sounds, soft Rectal exam: PRESENT: deferred Extremities exam: PRESENT: joint swelling - Mild swelling of the right ankle is noted without erythema or increased warmth, tenderness - Mildly painful range of motion of the large joints of the upper extremities bilaterally and the right ankle Musculoskeletal exam: ABSENT: deformity, dislocation Neurological exam: PRESENT: alert, oriented to person, oriented to place, oriented to time, oriented to situation, CN II-XII grossly intact. ABSENT: motor sensory deficit Psychiatric exam: PRESENT: appropriate affect, normal mood Skin exam: PRESENT: dry, intact, jaundice - Mild jaundice noted, warm. ABSENT: rash, urticaria Results Laboratory Results: 11/03/18 20:04 11/03/18 20:04 11/03/18 11/03/18 11/03/18 19:49 20:04 20:04 WBC 20.7 H RBC 3.96 L Hgb 10.3 L Hct 31.5 L MCV 80 MCH 26.1 L MCHC 32.8 RDW 23.5 H Plt Count 135 L Seg Neutrophils % Not Reportable Lymphocytes % Not Reportable Monocytes % Not Reportable Eosinophils % Not Reportable Basophils % Not Reportable Absolute Neutrophils Not Reportable Absolute Lymphocytes Not Reportable Absolute Monocytes Not Reportable Absolute Eosinophils Not Reportable Absolute Basophils Not Reportable Sodium 134.3 L Potassium 4.0 Chloride 100 Carbon Dioxide 23 Anion Gap 11 BUN 11 Creatinine 0.77 Est GFR ( Amer) > 60 Est GFR (Non-Af Amer) > 60 Glucose 98 Calcium 9.1 Total Bilirubin 3.1 H AST 73 H ALT 42 Alkaline Phosphatase 172 H C-Reactive Protein 47.9 H Total Protein 7.7 Albumin 3.8 Lipase 225.0 Urine Color SUSIE Urine Appearance SLIGHTLY-CLOUDY Urine pH 5.0 Ur Specific [place] 1.020 Urine Protein NEGATIVE Urine Glucose (UA) NEGATIVE Urine Ketones NEGATIVE Urine Blood NEGATIVE Urine Nitrite NEGATIVE Ur Leukocyte Esterase NEGATIVE Urine WBC (Auto) 2 Urine RBC (Auto) 1 Impressions: Elbow X-Ray 11/03/18 19:13 IMPRESSION: No evidence of acute osseous injury or significant degenerative change. Shoulder X-Ray 11/03/18 19:13 IMPRESSION: Calcific tendinopathy and sequela of previous shoulder dislocation within the left shoulder. Otherwise unremarkable radiographs of the bilateral shoulders. Assessment and Plan - Diagnosis (1) SIRS (systemic inflammatory response syndrome) Is this a current diagnosis for this admission?: Yes Plan: Patient will be monitored closely and serial lactic acid levels will be obtai elmo. With no obvious sign or source of infection other than the elevated white blood cell count and the nonspecific inflammatory response markers of CRP and ESR antibiotic therapy will not be initiated at this time. (2) Polyarthralgia Is this a current diagnosis for this admission?: Yes Plan: Patient's polyarthralgia may be autoimmune or reactive. Further evaluation and observation will be part of the patient's ongoing assessment. Daily laboratory evaluations with a CBC, metabolic profile, liver profile and magnesium levels will be obtained. Patient will use morphine sulfate 2 to 4 mg IV every 2 hours on a as needed basis for pain using a sliding scale. (3) Leukocytosis Qualifiers: Leukocytosis type: unspecified Qualified Code(s): D72.829 - Elevated white blood cell count, unspecified Is this a current diagnosis for this admission?: Yes Plan: The patient's leukocytosis will be monitored with daily CBCs. (4) Alcoholic liver disease Is this a current diagnosis for this admission?: Yes Plan: Patient's liver disease will be monitored with daily laboratory evaluations with a CBC, metabolic profile, liver profile and magnesium levels being obtained. (5) Tobacco dependence Is this a current diagnosis for this admission?: Yes Plan: Smoking cessation is advised and counseled briefly. A nicotine replacement patch is provided for the patient's use. (6) Seizure disorder Is this a current diagnosis for this admission?: Yes Plan: Patient will be continued on his current anti-convulsant regimen. Lamictal and Keppra levels are pending. - Time Time Spent with patient: 25-34 minutes Smoking Cessation Education: 3 to 10 minutes Medications reviewed and adjusted accordingly: Yes Anticipated discharge: Home - Inpatient Certification Based on my medical assessment, after consideration of the patient's comorbidities, presenting symptoms, or acuity I expect that the services needed warrant INPATIENT care.: Yes I certify that my determination is in accordance with my understanding of Medicare's requirements for reasonable and necessary INPATIENT services [42 CFR 412.3e].: Yes Medical Necessity: Need Close Monitoring Due to Risk of Patient Decompensation, Need for Pain Control, Risk of Complication if Not Cared For in Hospital, Risk of Diagnosis Which Will Require Inpatient Eval/Care/Monitoring
--- NOTE | 2018-11-04 05:08 | ADVANCED CARE ---
- Diagnosis (1) SIRS (systemic inflammatory response syndrome) Diagnosis Current: Yes (2) Polyarthralgia Diagnosis Current: Yes (3) Leukocytosis Diagnosis Current: Yes (4) Alcoholic liver disease Diagnosis Current: Yes (5) Tobacco dependence Diagnosis Current: Yes (6) Seizure disorder Diagnosis Current: Yes Attendance: Patient and myself Resuscitation Status: Full Code Discussion: Patient wishes to be a full CODE STATUS for any cardiac or respiratory arrest that may occur during his hospital course. He further wishes to have Char Rosa as his designated surrogate medical decision maker. Care Planning Goals: 1. Patient will be full CODE STATUS. 2. Char Rosa will be his designated surrogate medical decision-maker. Document(s) Completed: Patient's permanent medical record and medical orders will have the following entries made via EMR entry: 1. Patient will be full CODE STATUS. 2. Char Rosa will be his designated surrogate medical decision-maker. Time Spent: 5 Minutes
[2018-11-04 06:25] LABS: ABSOLUTE BASOPHILS # (AUTO) 0.1 10^3/uL (0.0-0.2); ABSOLUTE EOSINOPHILS # (AUTO) 0.2 10^3/uL (0.0-0.6); ABSOLUTE LYMPHOCYTES (AUTO) 1.5 10^3/uL (0.5-4.7); ABSOLUTE MONOCYTES (AUTO) 1.9 10^3/uL (0.1-1.4); BASOPHILS % (AUTO) 0.9 % (0-2); EOSINOPHILS % (AUTO) 1.5 % (0-6); HEMOGLOBIN 9.2 g/dL (13.5-17.0); LYMPHOCYTES % (AUTO) 11.7 % (13-45); MEAN CORPUSCULAR HEMOGLOBIN 26.1 pg (27.0-33.4); MEAN CORPUSCULAR HGB CONC 32.7 g/dL (32.0-36.0); MEAN CORPUSCULAR VOLUME 80 fl (80-97); MONOCYTES % (AUTO) 15.2 % (3-13); RED BLOOD COUNT 3.51 10^6/uL (4.35-5.55); RED CELL DISTRIBUTION WIDTH 23.2 % (11.5-14.0); SEGMENTED NEUTROPHILS % (AUTO) 70.7 % (42-78); TOTAL CELLS COUNTED % (AUTO) 100 %; WHITE BLOOD COUNT 12.8 10^3/uL (4.0-10.5)
[2018-11-04] MEDS: PANTOPRAZOLE SODIUM 40 MG TABLET.DR PO SCH ×2 (06:46→17:50)
[2018-11-04 06:47] LABS: ANION GAP 10 (5-19); BLOOD UREA NITROGEN 11 mg/dL (7-20); CALCIUM 8.3 mg/dL (8.4-10.2); CARBON DIOXIDE 23 mmol/L (22-30); CHLORIDE 102 mmol/L (98-107); CHOLESTEROL 148.92 mg/dL (0-200); CREATINE KINASE 21 U/L (55-170); GLUCOSE 87 mg/dL (75-110); PHOSPHORUS 3.7 mg/dL (2.5-4.5); POTASSIUM 3.5 mmol/L (3.6-5.0); SODIUM 135.2 mmol/L (137-145); TRIGLYCERIDES 143 mg/dL (<150)
[2018-11-04 06:58] LABS: DIRECT LDL 109 mg/dL (<100)
[2018-11-04 07:30] LABS: ANISOCYTOSIS 3+; PLATELET COUNT 82 10^3/uL (150-450)
[2018-11-04 07:31] LABS: HYPOCHROMASIA 1+; OVALOCYTES SLIGHT; PLATELET COMMENT DECREASED; POIKILOCYTOSIS SLIGHT; POLYCHROMASIA SLIGHT; TARGET CELLS SLIGHT
[2018-11-04] MEDS: LEVALBUTEROL HCL NEB 1.25 MG/3 ML AMPUL NEB SCH ×3 (08:12→23:55)
[2018-11-04] MEDS ORDERED: VANCOMYCIN HCL 0 MG in DEXTROSE 5%-WATER 250 ML IV NR (09:45)
[2018-11-04] MEDS ORDERED: LEVETIRACETAM 500 MG TABLET PO SCH (10:00)
[2018-11-04] MEDS: LEVETIRACETAM 500 MG TABLET PO SCH ×2 (10:26→21:35)
[2018-11-04] MEDS: NICOTINE 21 MG/24 HR PATCH.TD24 TD PRN (10:26)
[2018-11-04] MEDS: FOLIC ACID 1 MG TABLET PO SCH (10:28)
[2018-11-04] MEDS: DOCUSATE SODIUM 100 MG CAPSULE PO SCH ×2 (10:28→17:50)
[2018-11-04] MEDS: THIAMINE HCL 100 MG TABLET PO SCH (10:28)
[2018-11-04] MEDS: LAMOTRIGINE 100 MG TABLET PO SCH ×2 (10:28→21:32)
--- NOTE | 2018-11-04 10:44 | RADIOLOGY REPORT (SQ) ---
EXAM DESCRIPTION: ANKLE RIGHT COMPLETE COMPLETED DATE/TIME: 11/04/2018 10:24 am REASON FOR STUDY: swelling COMPARISON: None. NUMBER OF VIEWS: Four views. TECHNIQUE: AP, lateral, oblique, and mortise radiographic images acquired of the right ankle. LIMITATIONS: None. FINDINGS: MINERALIZATION: Normal. BONES: No acute fracture or dislocation. No worrisome bone lesions. JOINTS: No effusions. SOFT TISSUES: Diffuse swelling. No foreign body. OTHER: No other significant finding. IMPRESSION: NO RADIOGRAPHIC EVIDENCE OF ACUTE INJURY. TECHNICAL DOCUMENTATION: JOB ID: [id number] [employer]- All Rights Reserved Reading location - IP/workstation name: [email or web address]
[2018-11-04 12:04] LABS: URIC ACID 5.6 mg/dL (3.5-8.5)
[2018-11-04] MEDS: MORPHINE SULFATE 10 MG/ML INJ IV PRN ×2 (12:39→21:12)
[2018-11-04] MEDS: PIPERACILLIN SODIUM/TAZOBACTAM 3.375 GM in NORMAL SALINE 100 ML IV SCH ×2 (12:40→17:50)
--- NOTE | 2018-11-04 13:47 | PDOC PROGRESS REPORT ---
Subjective Progress Note for:: 11/04/18 Subjective:: TOAN SANTOS is a 48 year old male with a 3-week history of progressively worsening pain in his extremities. He admits that his pain started in the shoulders and elbows of his bilateral upper extremities 3 weeks ago being somewhat worse on the right than the left and over the last 1 to 2 weeks the pain has come to involve his lower extremities again more significantly on the right than the left and especially the right ankle. The pain is worsened with physical activity and is eased by rest. He was seen in the emergency room yesterday and elected to not be admitted to the hospital leaving AGAINST MEDICAL ADVICE at that time due to his desire to attend a family function. He returns today because his pain continues to be severe. He denies any recent trauma. He does admit to a recent hospitalization for severe anemia in which he received multiple blood transfusions. He denies any associated or accompanying signs or symptoms. He denies prior similar episodes. He has not identified any additional aggravating or ameliorating factors for his pain. In the emergency room he was found to have no radiographic evidence of injury or other acute changes on x-rays of his right shoulder and elbow. His CBC revealed an elevated white count of 20,000 which is slightly increased from the white blood count of 19,000 yesterday. His erythrocyte sedimentation rate is 80 and his CRP is 47.9. His examination showed some swelling of his right ankle with tenderness but no erythema or increased warmth. The remainder of his ER evaluation was unremarkable or consistent with a previously established baseline. He was subsequently admitted to the hospital for further evaluation and treatment. 11/04/2018. Patient complaining of bilateral shoulder and left ankle pain and swelling. Recently admitted on 10/16/2018 for anemia and EtOH withdrawal, discharged on 10/24/2018 received several PRBC transfusions, GI was consulted and patient had an EGD and colonoscopy which not reveal any source of acute bleeding except for internal hemorrhoids. Patient was sent home to restart his regular diet. Esophagus biopsy results showed squamocolumnar junction with moderate acute and chronic inflammation and no focal ulceration. No Otto's identified. Since being discharged on 10/24/2018 patient was doing well but he started having bilateral elbow and shoulder pain moving to his right ankle. Patient denies any history of STIs, denies discharge, oral ulcers, genital ulcers, vision changes, recent travel or dietary changes, tick bites, gout, pseudogout, reactive arthritis, recent upper or lower GI infection, morning stiffness, fatigue. Reason For Visit: POLYARTHRALGIA, LEUKOCYTOSIS, SIRS Physical Exam Vital Signs: Temp Pulse Resp BP Pulse Ox 98.7 F 92 17 144/56 H 91 L 11/04/18 11:14 11/04/18 11:14 11/04/18 11:14 11/04/18 11:14 11/04/18 11:14 Intake & Output 11/03/18 11/04/18 11/05/18 06:59 06:59 06:59 Intake Total 1000 Output Total 350 Balance 650 Weight 91.6 kg General appearance: PRESENT: no acute distress, well-developed, well-nourished Head exam: PRESENT: atraumatic, normocephalic Neck exam: ABSENT: carotid bruit, JVD, lymphadenopathy, thyromegaly Respiratory exam: PRESENT: clear to auscultation сергей. ABSENT: rales, rhonchi, wheezes Cardiovascular exam: PRESENT: RRR. ABSENT: diastolic murmur, rubs, systolic murmur GI/Abdominal exam: PRESENT: normal bowel sounds, soft. ABSENT: distended, guarding, mass, organolmegaly, rebound, tenderness Extremities exam: PRESENT: full ROM, joint swelling - Left ankle swelling and tenderness, warmth, limited range of motion due to pain. Bilateral shoulder limited range of motion due to pain. No swelling, no rash, no erythema, wound or discharge.. ABSENT: calf tenderness, clubbing, pedal edema Results Laboratory Results: 11/04/18 05:16 11/04/18 05:16 11/03/18 11/03/18 11/03/18 19:49 20:04 20:04 WBC 20.7 H RBC 3.96 L Hgb 10.3 L Hct 31.5 L MCV 80 MCH 26.1 L MCHC 32.8 RDW 23.5 H Plt Count 135 L Seg Neutrophils % Not Reportable Lymphocytes % Not Reportable Monocytes % Not Reportable Eosinophils % Not Reportable Basophils % Not Reportable Absolute Neutrophils Not Reportable Absolute Lymphocytes Not Reportable Absolute Monocytes Not Reportable Absolute Eosinophils Not Reportable Absolute Basophils Not Reportable Sodium 134.3 L Potassium 4.0 Chloride 100 Carbon Dioxide 23 Anion Gap 11 BUN 11 Creatinine 0.77 Est GFR ( Amer) > 60 Est GFR (Non-Af Amer) > 60 Glucose 98 Lactic Acid Uric Acid Calcium 9.1 Phosphorus Magnesium Total Bilirubin 3.1 H AST 73 H ALT 42 Alkaline Phosphatase 172 H Ammonia C-Reactive Protein 47.9 H Total Protein 7.7 Albumin 3.8 Triglycerides Cholesterol LDL Cholesterol Direct VLDL Cholesterol HDL Cholesterol Lipase 225.0 TSH Free T4 Free T3 pg/mL Urine Color SUSIE Urine Appearance SLIGHTLY-CLOUDY Urine pH 5.0 Ur Specific [place] 1.020 Urine Protein NEGATIVE Urine Glucose (UA) NEGATIVE Urine Ketones NEGATIVE Urine Blood NEGATIVE Urine Nitrite NEGATIVE Ur Leukocyte Esterase NEGATIVE Urine WBC (Auto) 2 Urine RBC (Auto) 1 11/04/18 11/04/18 11/04/18 01:10 01:10 01:10 WBC RBC Hgb Hct MCV MCH MCHC RDW Plt Count Seg Neutrophils % Lymphocytes % Monocytes % Eosinophils % Basophils % Absolute Neutrophils Absolute Lymphocytes Absolute Monocytes Absolute Eosinophils Absolute Basophils Sodium Potassium Chloride Carbon Dioxide Anion Gap BUN Creatinine Est GFR ( Amer) Est GFR (Non-Af Amer) Glucose Lactic Acid 1.2 Uric Acid Calcium Phosphorus Magnesium Total Bilirubin 3.2 H AST 59 ALT 40 Alkaline Phosphatase 150 H Ammonia C-Reactive Protein Total Protein 6.7 Albumin 3.3 L Triglycerides Cholesterol LDL Cholesterol Direct VLDL Cholesterol HDL Cholesterol Lipase TSH 1.14 Free T4 2.11 Free T3 pg/mL 3.91 Urine Color Urine Appearance Urine pH Ur Specific [place] Urine Protein Urine Glucose (UA) Urine Ketones Urine Blood Urine Nitrite Ur Leukocyte Esterase Urine WBC (Auto) Urine RBC (Auto) 11/04/18 11/04/18 11/04/18 05:16 05:16 05:16 WBC 12.8 H RBC 3.51 L Hgb 9.2 L Hct 28.0 L MCV 80 MCH 26.1 L MCHC 32.7 RDW 23.2 H Plt Count 82 L Seg Neutrophils % 70.7 Lymphocytes % 11.7 L Monocytes % 15.2 H Eosinophils % 1.5 Basophils % 0.9 Absolute Neutrophils 9.0 H Absolute Lymphocytes 1.5 Absolute Monocytes 1.9 H Absolute Eosinophils 0.2 Absolute Basophils 0.1 Sodium 135.2 L Potassium 3.5 L Chloride 102 Carbon Dioxide 23 Anion Gap 10 BUN 11 Creatinine 0.76 Est GFR ( Amer) > 60 Est GFR (Non-Af Amer) > 60 Glucose 87 Lactic Acid 1.0 Uric Acid Calcium 8.3 L Phosphorus 3.7 Magnesium 2.0 Total Bilirubin AST ALT Alkaline Phosphatase Ammonia C-Reactive Protein Total Protein Albumin Triglycerides 143 Cholesterol 148.92 LDL Cholesterol Direct 109 H VLDL Cholesterol 29.0 HDL Cholesterol 19 L Lipase TSH Free T4 Free T3 pg/mL Urine Color Urine Appearance Urine pH Ur Specific [place] Urine Protein Urine Glucose (UA) Urine Ketones Urine Blood Urine Nitrite Ur Leukocyte Esterase Urine WBC (Auto) Urine RBC (Auto) 11/04/18 11/04/18 05:16 11:19 WBC RBC Hgb Hct MCV MCH MCHC RDW Plt Count Seg Neutrophils % Lymphocytes % Monocytes % Eosinophils % Basophils % Absolute Neutrophils Absolute Lymphocytes Absolute Monocytes Absolute Eosinophils Absolute Basophils Sodium Potassium Chloride Carbon Dioxide Anion Gap BUN Creatinine Est GFR ( Amer) Est GFR (Non-Af Amer) Glucose Lactic Acid Uric Acid 5.6 Calcium Phosphorus Magnesium Total Bilirubin AST ALT Alkaline Phosphatase Ammonia 32.2 C-Reactive Protein Total Protein Albumin Triglycerides Cholesterol LDL Cholesterol Direct VLDL Cholesterol HDL Cholesterol Lipase TSH Free T4 Free T3 pg/mL Urine Color Urine Appearance Urine pH Ur Specific [place] Urine Protein Urine Glucose (UA) Urine Ketones Urine Blood Urine Nitrite Ur Leukocyte Esterase Urine WBC (Auto) Urine RBC (Auto) 11/04/18 05:16 Creatine Kinase 21 L Impressions: Elbow X-Ray 11/03/18 19:13 IMPRESSION: No evidence of acute osseous injury or significant degenerative change. Shoulder X-Ray 11/03/18 19:13 IMPRESSION: Calcific tendinopathy and sequela of previous shoulder dislocation within the left shoulder. Otherwise unremarkable radiographs of the bilateral shoulders. Ankle X-Ray 11/04/18 00:00 IMPRESSION: NO RADIOGRAPHIC EVIDENCE OF ACUTE INJURY. Assessment and Plan - Diagnosis (1) Polyarthralgia Is this a current diagnosis for this admission?: Yes Plan: Autoimmune/reactive/infectious History of recent PRBC transfusion on 10/16/2018. Denies any history of STIs, penile discharge, oral ulcers, genital ulcers, vision changes, recent travel or dietary changes, tick bites, gout, pseudogout, reactive arthritis, autoimmune disease, recent URI or GI infection, morning stiffness, fatigue. Vancomycin and Zosyn day 1. HIV negative. ESR 88. CRP 47.9. RA factor negative. UDS + benzos and marijuana. Pending Chlamydia gonorrhea by PCR, hepatitis panel, RICCO, MRI left lower extremity. Consult to radiology for left ankle arthrocentesis for joint fluid analysis. Continue empiric IV antibiotics, follow-up cultures, (2) SIRS (systemic inflammatory response syndrome) Is this a current diagnosis for this admission?: Yes Plan: As per #1. (3) Seizure disorder Is this a current diagnosis for this admission?: Yes Plan: Start home meds. Seizure precautions. (4) Tobacco abuse Is this a current diagnosis for this admission?: No Plan: Advised on quitting. NicoDerm patch provided. (5) Anemia Qualifiers: Anemia type: iron deficiency Is this a current diagnosis for this admission?: No Plan: Recently admitted on 10/16/2018 for anemia and EtOH withdrawal, discharged on 10/24/2018 received several PRBC transfusions, GI was consulted and patient had an EGD and colonoscopy which not reveal any source of acute bleeding except for internal hemorrhoids. Patient was sent home to restart his regular diet. Esophagus biopsy results showed squamocolumnar junction with moderate acute and chronic inflammation and no focal ulceration. No Otto's identified. H&H stable. Will get iron panel. Will start on supplemental iron.
[2018-11-04 14:19] LABS: CHLAM PCR NOT DETECTED (NOT DETECT)
--- NOTE | 2018-11-04 14:27 | RADIOLOGY REPORT (SQ) ---
EXAM DESCRIPTION: MRI RT LOWER JOINT COMBO COMPLETED DATE/TIME: 11/04/2018 1:54 pm REASON FOR STUDY: ? septic right ankle COMPARISON: None. TECHNIQUE: Multiplanar imaging of the right ankle to include T1-weighted, postcontrast T1-weighted, and T2-weighted images. CONTRAST TYPE AND DOSE: 15 mL Dotarem. RENAL FUNCTION: Not indicated. ACR Type II contrast agent associated with few, if any, unconfounded cases of NSF LIMITATIONS: Patient movement. FINDINGS: BONE MARROW: No marrow signal alteration. Specifically no marrow replacement or marrow ed isai. No evidence for osteomyelitis. No cortical break through. SOFT TISSUES: Medial swelling. No abscess or joint effusion. OTHER: No other significant finding. IMPRESSION: NO EVIDENCE FOR OSTEOMYELITIS. TECHNICAL DOCUMENTATION: JOB ID: [id number] [employer]- All Rights Reserved Reading location - IP/workstation name: [email or web address]
[2018-11-04] MEDS: VANCOMYCIN HCL 1,000 MG in DEXTROSE 5%-WATER 250 ML IV SCH ×2 (14:39→21:31)
[2018-11-05] MEDS: PIPERACILLIN SODIUM/TAZOBACTAM 3.375 GM in NORMAL SALINE 100 ML IV SCH ×4 (00:38→18:26)
[2018-11-05 05:24] LABS: ABSOLUTE RETICS # 0.078 10^6/uL (0.028-0.122); RETICULOCYTE COUNT (AUTO) 2.31 % (0.66-2.85)
[2018-11-05] MEDS: VANCOMYCIN HCL 1,000 MG in DEXTROSE 5%-WATER 250 ML IV SCH ×2 (05:29→14:24)
[2018-11-05] MEDS: HEPARIN SOD (PORCINE) 5,000 UNIT/ML 1 ML SYRINGE SUBCUT SCH ×3 (05:30→22:24)
[2018-11-05] MEDS: PANTOPRAZOLE SODIUM 40 MG TABLET.DR PO SCH ×2 (05:30→18:26)
[2018-11-05 05:38] LABS: IRON(TIBC) 18.1 ug/dL (49-181)
[2018-11-05] MEDS: MORPHINE SULFATE 10 MG/ML INJ IV PRN ×3 (06:57→21:12)
[2018-11-05] MEDS: LEVALBUTEROL HCL NEB 1.25 MG/3 ML AMPUL NEB SCH ×2 (07:33→16:30)
[2018-11-05] MEDS: THIAMINE HCL 100 MG TABLET PO SCH (10:07)
[2018-11-05] MEDS: LEVETIRACETAM 500 MG TABLET PO SCH ×2 (10:07→21:12)
[2018-11-05] MEDS: FOLIC ACID 1 MG TABLET PO SCH (10:07)
[2018-11-05] MEDS: NICOTINE 21 MG/24 HR PATCH.TD24 TD PRN (10:07)
[2018-11-05] MEDS: DOCUSATE SODIUM 100 MG CAPSULE PO SCH ×2 (10:07→18:26)
[2018-11-05] MEDS: LAMOTRIGINE 100 MG TABLET PO SCH ×2 (10:07→21:11)
[2018-11-05 11:37] LABS: HEPATITIS A AB IGM Negative (Negative); HEPATITIS B CORE AB IGM Negative (Negative); HEPATITS B SURFACE ANTIGEN Negative (Negative)
[2018-11-05 11:52] LABS: HEPATITIS C VIRUS ANTIBODY <0.1 s/co ratio (0.0-0.9)
[2018-11-05] MEDS: FERROUS SULFATE 325 MG TABLET PO SCH (12:34)
--- NOTE | 2018-11-05 12:57 | RADIOLOGY REPORT (SQ) ---
EXAM DESCRIPTION: FLUORO/NEEDLE PLACEMENT; INJECT/ASPIR WRIST/ELB/ANKLE COMPLETED DATE/TIME: 11/05/2018 12:05 pm REASON FOR STUDY: swollen ankle; SWOLLEN ANKLE COMPARISON: None. FLUOROSCOPY TIME: 20 seconds 1 images saved to PACS. LIMITATIONS: None. PROCEDURE: SITE OF INJECTION: Right ankle LOCALIZING CONTRAST TYPE AND DOSE: None. MEDICATION TYPE AND DOSE: None. Using local anesthesia and sterile technique with fluoroscopic guidance, the needle was advanced into the joint. Fluid was aspirated. The needle was removed. There were no immediate complications. Marciano mckenzie was sent to the lab. IMPRESSION: Fluoroscopic guided right ankle aspiration. COMMENT: Patient medication list reviewed: Yes- Quality ID# [id number]:Eligible professional attests to doc umenting in the medical record they obtained, updated, or reviewed the patient's current medications. . Quality ID 145: Final reports for procedures using fluoroscopy that document radiation exposure jamie meghana, or exposure time and number of fluorographic images (if radiation exposure indices are not avail able) TECHNICAL DOCUMENTATION: JOB ID: [id number] [employer]- All Rights Reserved Reading location - IP/workstation name: [email or web address]
--- NOTE | 2018-11-05 12:57 | RADIOLOGY REPORT (SQ) ---
EXAM DESCRIPTION: FLUORO/NEEDLE PLACEMENT; INJECT/ASPIR WRIST/ELB/ANKLE COMPLETED DATE/TIME: 11/05/2018 12:05 pm REASON FOR STUDY: swollen ankle; SWOLLEN ANKLE COMPARISON: None. FLUOROSCOPY TIME: 20 seconds 1 images saved to PACS. LIMITATIONS: None. PROCEDURE: SITE OF INJECTION: Right ankle LOCALIZING CONTRAST TYPE AND DOSE: None. MEDICATION TYPE AND DOSE: None. Using local anesthesia and sterile technique with fluoroscopic guidance, the needle was advanced into the joint. Fluid was aspirated. The needle was removed. There were no immediate complications. Marciano mckenzie was sent to the lab. IMPRESSION: Fluoroscopic guided right ankle aspiration. COMMENT: Patient medication list reviewed: Yes- Quality ID# [id number]:Eligible professional attests to doc umenting in the medical record they obtained, updated, or reviewed the patient's current medications. . Quality ID 145: Final reports for procedures using fluoroscopy that document radiation exposure jamie meghana, or exposure time and number of fluorographic images (if radiation exposure indices are not avail able) TECHNICAL DOCUMENTATION: JOB ID: [id number] [employer]- All Rights Reserved Reading location - IP/workstation name: [email or web address]
[2018-11-05 13:21] LABS: ABSOLUTE BASOPHILS # (AUTO) 0.1 10^3/uL (0.0-0.2); ABSOLUTE EOSINOPHILS # (AUTO) 0.3 10^3/uL (0.0-0.6); ABSOLUTE LYMPHOCYTES (AUTO) 1.4 10^3/uL (0.5-4.7); ABSOLUTE MONOCYTES (AUTO) 1.4 10^3/uL (0.1-1.4); ABSOLUTE NEUT (AUTO) 7.5 10^3/uL (1.7-8.2); BASOPHILS % (AUTO) 1.1 % (0-2); EOSINOPHILS % (AUTO) 2.4 % (0-6); HEMATOCRIT 28.7 % (37.9-51.0); HEMOGLOBIN 9.4 g/dL (13.5-17.0); LYMPHOCYTES % (AUTO) 13.1 % (13-45); MEAN CORPUSCULAR HEMOGLOBIN 26.3 pg (27.0-33.4); MEAN CORPUSCULAR HGB CONC 32.7 g/dL (32.0-36.0); MEAN CORPUSCULAR VOLUME 80 fl (80-97); MONOCYTES % (AUTO) 13.5 % (3-13); RED BLOOD COUNT 3.57 10^6/uL (4.35-5.55); RED CELL DISTRIBUTION WIDTH 23.6 % (11.5-14.0); SEGMENTED NEUTROPHILS % (AUTO) 69.9 % (42-78); TOTAL CELLS COUNTED % (AUTO) 100 %; WHITE BLOOD COUNT 10.7 10^3/uL (4.0-10.5)
[2018-11-05 13:31] LABS: MONOSODIUM URATE CRYSTALS NONE OBSERVED
[2018-11-05 13:32] LABS: CALCIUM PYROPHOSPHATE CRYSTALS NONE OBSERVED; OTHER CRYSTALS NONE OBSERVED
[2018-11-05 13:38] LABS: FLUID TYPE SYNOVIAL
[2018-11-05 13:41] LABS: FLUID COLOR PINK
[2018-11-05 13:41] LABS: PLATELET COUNT 70 10^3/uL (150-450)
[2018-11-05 13:42] LABS: FLUID APPEARANCE HAZY; FLUID VISCOSITY LIQUID
[2018-11-05 13:48] LABS: ANION GAP 11 (5-19); BLOOD UREA NITROGEN 10 mg/dL (7-20); CALCIUM 8.6 mg/dL (8.4-10.2); CARBON DIOXIDE 23 mmol/L (22-30); CHLORIDE 100 mmol/L (98-107); GLUCOSE 113 mg/dL (75-110); POTASSIUM 3.9 mmol/L (3.6-5.0); SODIUM 133.8 mmol/L (137-145)
[2018-11-05] MEDS ORDERED: (PENDING PHARMACY ID) (Levetiracetam [Keppra] 1,000 MG) PO SCH (14:00)
[2018-11-05 14:47] LABS: VANCOMYCIN,TROUGH 10.3 ug/mL (5.0-20.0)
--- NOTE | 2018-11-05 15:04 | PDOC PROGRESS REPORT ---
Subjective Progress Note for:: 11/05/18 Subjective:: TOAN SANTOS is a 48 year old male with a 3-week history of progressively worsening pain in his extremities. He admits that his pain started in the shoulders and elbows of his bilateral upper extremities 3 weeks ago being somewhat worse on the right than the left and over the last 1 to 2 weeks the pain has come to involve his lower extremities again more significantly on the right than the left and especially the right ankle. The pain is worsened with physical activity and is eased by rest. He was seen in the emergency room yesterday and elected to not be admitted to the hospital leaving AGAINST MEDICAL ADVICE at that time due to his desire to attend a family function. He returns today because his pain continues to be severe. He denies any recent trauma. He does admit to a recent hospitalization for severe anemia in which he received multiple blood transfusions. He denies any associated or accompanying signs or symptoms. He denies prior similar episodes. He has not identified any additional aggravating or ameliorating factors for his pain. In the emergency room he was found to have no radiographic evidence of injury or other acute changes on x-rays of his right shoulder and elbow. His CBC revealed an elevated white count of 20,000 which is slightly increased from the white blood count of 19,000 yesterday. His erythrocyte sedimentation rate is 80 and his CRP is 47.9. His examination showed some swelling of his right ankle with tenderness but no erythema or increased warmth. The remainder of his ER evaluation was unremarkable or consistent with a previously established baseline. He was subsequently admitted to the hospital for further evaluation and treatment. 11/04/2018. Patient complaining of bilateral shoulder and left ankle pain and swelling. Recently admitted on 10/16/2018 for anemia and EtOH withdrawal, discharged on 10/24/2018 received several PRBC transfusions, GI was consulted and patient had an EGD and colonoscopy which not reveal any source of acute bleeding except for internal hemorrhoids. Patient was sent home to restart his regular diet. Esophagus biopsy results showed squamocolumnar junction with moderate acute and chronic inflammation and no focal ulceration. No Otto's identified. Since being discharged on 10/24/2018 patient was doing well but he started having bilateral elbow and shoulder pain moving to his right ankle. Patient denies any history of STIs, denies discharge, oral ulcers, genital ulcers, vision changes, recent travel or dietary changes, tick bites, gout, pseudogout, reactive arthritis, recent upper or lower GI infection, morning stiffness, fatigue. Reason For Visit: POLYARTHRALGIA, LEUKOCYTOSIS, SIRS Physical Exam Vital Signs: Temp Pulse Resp BP Pulse Ox 98.6 F 94 17 136/64 H 92 11/05/18 11:26 11/05/18 11:26 11/05/18 11:26 11/05/18 11:26 11/05/18 11:26 Intake & Output 11/04/18 11/05/18 11/06/18 06:59 06:59 06:59 Intake Total 1000 1040 450 Output Total 350 1325 Balance 650 -285 450 Weight 91.6 kg 93.9 kg General appearance: PRESENT: no acute distress, well-developed, well-nourished Head exam: PRESENT: atraumatic, normocephalic Neck exam: ABSENT: carotid bruit, JVD, lymphadenopathy, thyromegaly Respiratory exam: PRESENT: clear to auscultation сергей. ABSENT: rales, rhonchi, wheezes Cardiovascular exam: PRESENT: RRR. ABSENT: diastolic murmur, rubs, systolic murmur GI/Abdominal exam: PRESENT: normal bowel sounds, soft. ABSENT: distended, guarding, mass, organolmegaly, rebound, tenderness Extremities exam: PRESENT: full ROM, tenderness - Lt Ankle Medical aspect erythema, mild swelling and TTP. Bilateral Shoulder Pain on Internal Rotation.. ABSENT: calf tenderness, clubbing, pedal edema Neurological exam: PRESENT: alert, awake, oriented to person, oriented to place, oriented to time, oriented to situation, CN II-XII grossly intact. ABSENT: motor sensory deficit Results Laboratory Results: 11/05/18 13:04 11/05/18 13:48 11/05/18 11/05/18 11/05/18 04:29 04:29 11:50 WBC RBC Hgb Hct MCV MCH MCHC RDW Plt Count Seg Neutrophils % Lymphocytes % Monocytes % Eosinophils % Basophils % Absolute Neutrophils Absolute Lymphocytes Absolute Monocytes Absolute Eosinophils Absolute Basophils Retic Count (auto) 2.31 Absolute Retic 0.078 Sodium Potassium Chloride Carbon Dioxide Anion Gap BUN Creatinine Est GFR ( Amer) Est GFR (Non-Af Amer) Glucose Calcium Iron 18.1 L TIBC 304 % Saturation 6 Ferritin 23.20 Vitamin B12 876.0 Folate 19.10 Fluid Type SYNOVIAL Fluid Source Fluid Color Fluid Appearance Fluid Viscosity Fluid WBC Fluid RBC 11/05/18 11/05/18 11/05/18 11:50 13:04 13:04 WBC 10.7 H RBC 3.57 L Hgb 9.4 L Hct 28.7 L MCV 80 MCH 26.3 L MCHC 32.7 RDW 23.6 H Plt Count 70 L Seg Neutrophils % 69.9 Lymphocytes % 13.1 Monocytes % 13.5 H Eosinophils % 2.4 Basophils % 1.1 Absolute Neutrophils 7.5 Absolute Lymphocytes 1.4 Absolute Monocytes 1.4 Absolute Eosinophils 0.3 Absolute Basophils 0.1 Retic Count (auto) Absolute Retic Sodium 133.8 L Potassium 3.9 Chloride 100 Carbon Dioxide 23 Anion Gap 11 BUN 10 Creatinine 0.77 Est GFR ( Amer) > 60 Est GFR (Non-Af Amer) > 60 Glucose 113 H Calcium 8.6 Iron TIBC % Saturation Ferritin Vitamin B12 Folate Fluid Type SYNOVIAL Fluid Source Fluid Color PINK Fluid Appearance HAZY Fluid Viscosity LIQUID Fluid WBC 7 Fluid RBC 7394 11/05/18 13:48 WBC RBC Hgb Hct MCV MCH MCHC RDW Plt Count Seg Neutrophils % Lymphocytes % Monocytes % Eosinophils % Basophils % Absolute Neutrophils Absolute Lymphocytes Absolute Monocytes Absolute Eosinophils Absolute Basophils Retic Count (auto) Absolute Retic Sodium Potassium Chloride Carbon Dioxide Anion Gap BUN Creatinine 0.71 Est GFR ( Amer) > 60 Est GFR (Non-Af Amer) > 60 Glucose Calcium Iron TIBC % Saturation Ferritin Vitamin B12 Folate Fluid Type Fluid Source Fluid Color Fluid Appearance Fluid Viscosity Fluid WBC Fluid RBC 11/03/18 19:49 Clean Catch Midstream Urine Culture - Final NO GROWTH 2 DAYS 11/04/18 11/04/18 05:16 11:19 Creatine Kinase 21 L 23 L Impressions: Elbow X-Ray 11/03/18 19:13 IMPRESSION: No evidence of acute osseous injury or significant degenerative change. Shoulder X-Ray 11/03/18 19:13 IMPRESSION: Calcific tendinopathy and sequela of previous shoulder dislocation within the left shoulder. Otherwise unremarkable radiographs of the bilateral shoulders. Ankle X-Ray 11/04/18 00:00 IMPRESSION: NO RADIOGRAPHIC EVIDENCE OF ACUTE INJURY. Lower Extremity MRI 11/04/18 00:00 IMPRESSION: NO EVIDENCE FOR OSTEOMYELITIS. Guidance Fluoroscopy 11/05/18 00:00 IMPRESSION: Fluoroscopic guided right ankle aspiration. Joint Aspiration/Injection 11/05/18 00:00 IMPRESSION: Fluoroscopic guided right ankle aspiration. Assessment and Plan - Diagnosis (1) Polyarthralgia Is this a current diagnosis for this admission?: Yes Plan: Not sure if polyarthralgia is autoimmune/reactive/infectious is most of the work-up has been negative for RICCO which is pending. Physical examination positive for swelling, erythema and tenderness over right medial malleolus and bilateral shoulder pain on internal rotation otherwise there is no sign of synovitis, other joint swelling, rash or mucosal ulcers. Rt shoulder x-ray shows tendinitis likely due to previous shoulder dislocation otherwise bilateral shoulder x-rays are negative. History of recent PRBC transfusion on 10/16/2018. Denies any history of STIs, penile discharge, oral ulcers, genital ulcers, vision changes, recent travel or dietary changes, tick bites, gout, pseudogout, reactive arthritis, autoimmune disease, recent URI or GI infection, morning stiffness, fatigue. HIV: negative. ESR: 88 CRP: 47 RA: Negative. CK: 23 Rt Ankle synovial: WBC 7, RBC 7394, CPP Crystal Negative. SPP Cyrstal Negative. Hepatitis panel: Negative UDS + benzos and marijuana. Chlamydia and GC by PCR: Negative. MRI left lower extremity: Negative for osteo or joint effusion. Continue empiric IV antibiotics, follow-up cultures. Vancomycin and Zosyn day 2. (2) SIRS (systemic inflammatory response syndrome) Is this a current diagnosis for this admission?: Yes Plan: As per #1. (3) Seizure disorder Is this a current diagnosis for this admission?: Yes Plan: Start home meds. Seizure precautions. (4) Tobacco abuse Is this a current diagnosis for this admission?: No Plan: Advised on quitting. NicoDerm patch provided. (5) Anemia Qualifiers: Anemia type: iron deficiency Is this a current diagnosis for this admission?: No Plan: Recently admitted on 10/16/2018 for anemia and EtOH withdrawal, discharged on 10/24/2018 received several PRBC transfusions, GI was consulted and patient had an EGD and colonoscopy which not reveal any source of acute bleeding except for internal hemorrhoids. Patient was sent home to restart his regular diet. Esophagus biopsy results showed squamocolumnar junction with moderate acute and chronic inflammation and no focal ulceration. No Otto's identified. H&H stable. Panel positive for iron deficiency anemia. Started on ferrous sulfate daily.
[2018-11-05] MEDS: VANCOMYCIN HCL 1,500 MG in DEXTROSE 5%-WATER 250 ML IV SCH (21:16)
[2018-11-05] MEDS ORDERED: (PENDING PHARMACY ID) (Lamotrigine [Lamictal] 150 MG) PO SCH (22:00)
[2018-11-06] MEDS: LEVALBUTEROL HCL NEB 1.25 MG/3 ML AMPUL NEB SCH ×4 (00:07→23:35)
[2018-11-06] MEDS: PIPERACILLIN SODIUM/TAZOBACTAM 3.375 GM in NORMAL SALINE 100 ML IV SCH ×5 (00:55→23:08)
[2018-11-06] MEDS: MORPHINE SULFATE 10 MG/ML INJ IV PRN ×5 (06:10→23:08)
[2018-11-06] MEDS: PANTOPRAZOLE SODIUM 40 MG TABLET.DR PO SCH ×2 (06:10→17:38)
[2018-11-06] MEDS: LEVETIRACETAM 500 MG TABLET PO SCH ×3 (06:10→21:03)
[2018-11-06] MEDS: HEPARIN SOD (PORCINE) 5,000 UNIT/ML 1 ML SYRINGE SUBCUT SCH ×3 (06:14→21:04)
[2018-11-06] MEDS: VANCOMYCIN HCL 1,500 MG in DEXTROSE 5%-WATER 250 ML IV SCH ×3 (06:45→21:03)
[2018-11-06 08:14] LABS: ABSOLUTE BASOPHILS # (AUTO) 0.2 10^3/uL (0.0-0.2); ABSOLUTE EOSINOPHILS # (AUTO) 0.3 10^3/uL (0.0-0.6); ABSOLUTE LYMPHOCYTES (AUTO) 1.2 10^3/uL (0.5-4.7); ABSOLUTE MONOCYTES (AUTO) 1.5 10^3/uL (0.1-1.4); ABSOLUTE NEUT (AUTO) 7.8 10^3/uL (1.7-8.2); BASOPHILS % (AUTO) 1.4 % (0-2); EOSINOPHILS % (AUTO) 2.6 % (0-6); HEMATOCRIT 27.5 % (37.9-51.0); HEMOGLOBIN 8.8 g/dL (13.5-17.0); LYMPHOCYTES % (AUTO) 11.3 % (13-45); MEAN CORPUSCULAR HEMOGLOBIN 25.7 pg (27.0-33.4); MEAN CORPUSCULAR VOLUME 81 fl (80-97); MONOCYTES % (AUTO) 13.8 % (3-13); RED BLOOD COUNT 3.42 10^6/uL (4.35-5.55); RED CELL DISTRIBUTION WIDTH 23.1 % (11.5-14.0); SEGMENTED NEUTROPHILS % (AUTO) 70.9 % (42-78); TOTAL CELLS COUNTED % (AUTO) 100 %
[2018-11-06 08:37] LABS: ALANINE AMINOTRANSFERASE 30 U/L (21-72); ALBUMIN 2.9 g/dL (3.5-5.0); ALKALINE PHOSPHATASE 129 U/L (38-126); ANION GAP 8 (5-19); ASPARTATE AMINO TRANSFERASE 59 U/L (17-59); BILIRUBIN,DIRECT 1.4 mg/dL (0.0-0.4); BILIRUBIN,TOTAL 2.6 mg/dL (0.2-1.3); BLOOD UREA NITROGEN 11 mg/dL (7-20); CALCIUM 8.5 mg/dL (8.4-10.2); CARBON DIOXIDE 25 mmol/L (22-30); CHLORIDE 102 mmol/L (98-107); GLUCOSE 109 mg/dL (75-110); POTASSIUM 3.8 mmol/L (3.6-5.0); SODIUM 135.4 mmol/L (137-145); TOTAL PROTEIN 6.2 g/dL (6.3-8.2)
[2018-11-06 08:44] LABS: PLATELET COUNT 65 10^3/uL (150-450)
[2018-11-06] MEDS: FUROSEMIDE 40 MG TABLET PO SCH (09:14)
[2018-11-06] MEDS: FOLIC ACID 1 MG TABLET PO SCH (09:14)
[2018-11-06] MEDS: LAMOTRIGINE 100 MG TABLET PO SCH ×2 (09:14→21:04)
[2018-11-06] MEDS: FERROUS SULFATE 325 MG TABLET PO SCH (09:14)
[2018-11-06] MEDS: THIAMINE HCL 100 MG TABLET PO SCH (09:14)
[2018-11-06] MEDS: DOCUSATE SODIUM 100 MG CAPSULE PO SCH ×2 (09:14→17:38)
--- NOTE | 2018-11-06 19:12 | PDOC PROGRESS REPORT ---
Subjective Progress Note for:: 11/06/18 Subjective:: TOAN SANTOS is a 48 year old male with a 3-week history of progressively worsening pain in his extremities. He admits that his pain started in the shoulders and elbows of his bilateral upper extremities 3 weeks ago being somewhat worse on the right than the left and over the last 1 to 2 weeks the pain has come to involve his lower extremities again more significantly on the right than the left and especially the right ankle. The pain is worsened with physical activity and is eased by rest. He was seen in the emergency room yesterday and elected to not be admitted to the hospital leaving AGAINST MEDICAL ADVICE at that time due to his desire to attend a family function. He returns today because his pain continues to be severe. He denies any recent trauma. He does admit to a recent hospitalization for severe anemia in which he received multiple blood transfusions. He denies any associated or accompanying signs or symptoms. He denies prior similar episodes. He has not identified any additional aggravating or ameliorating factors for his pain. In the emergency room he was found to have no radiographic evidence of injury or other acute changes on x-rays of his right shoulder and elbow. His CBC revealed an elevated white count of 20,000 which is slightly increased from the white blood count of 19,000 yesterday. His erythrocyte sedimentation rate is 80 and his CRP is 47.9. His examination showed some swelling of his right ankle with tenderness but no erythema or increased warmth. The remainder of his ER evaluation was unremarkable or consistent with a previously established baseline. He was subsequently admitted to the hospital for further evaluation and treatment. 11/04/2018. Patient complaining of bilateral shoulder and left ankle pain and swelling. Recently admitted on 10/16/2018 for anemia and EtOH withdrawal, discharged on 10/24/2018 received several PRBC transfusions, GI was consulted and patient had an EGD and colonoscopy which not reveal any source of acute bleeding except for internal hemorrhoids. Patient was sent home to restart his regular diet. Esophagus biopsy results showed squamocolumnar junction with moderate acute and chronic inflammation and no focal ulceration. No Otto's identified. Since being discharged on 10/24/2018 patient was doing well but he started having bilateral elbow and shoulder pain moving to his right ankle. Patient denies any history of STIs, denies discharge, oral ulcers, genital ulcers, vision changes, recent travel or dietary changes, tick bites, gout, pseudogout, reactive arthritis, recent upper or lower GI infection, morning stiffness, fatigue. 11/06/2018. No acute events overnight, patient still complaining of bilateral shoulder pain, unable to too much. Was able to tolerate physical therapy. Actually he was helped up by physical therapy he was able to tolerate his physical therapy very well. Recommendation is for home with home PT. Complaining of right ankle pain which has improved since admission. Denies any fever, chills, nausea, vomiting, diarrhea, constipation or any urinary symptoms. Reason For Visit: POLYARTHRALGIA, LEUKOCYTOSIS, SIRS Physical Exam Vital Signs: Temp Pulse Resp BP Pulse Ox 98.9 F 95 18 142/65 H 91 L 11/06/18 15:28 11/06/18 15:28 11/06/18 15:28 11/06/18 15:28 11/06/18 15:28 Intake & Output 11/05/18 11/06/18 11/07/18 06:59 06:59 06:59 Intake Total 1040 1900 2550 Output Total 1325 2075 1950 Balance -285 -175 600 Weight 93.9 kg 95.4 kg General appearance: PRESENT: no acute distress, obese, well-developed, well- nourished Head exam: PRESENT: atraumatic, normocephalic Respiratory exam: PRESENT: clear to auscultation сергей. ABSENT: rales, rhonchi, wheezes Cardiovascular exam: PRESENT: RRR. ABSENT: diastolic murmur, rubs, systolic murmur GI/Abdominal exam: PRESENT: normal bowel sounds, soft. ABSENT: distended, guarding, mass, organolmegaly, rebound, tenderness Extremities exam: PRESENT: full ROM, other - Bilateral shoulder pain on external rotation. No swelling or erythema noticed. Right ankle medial malleolus erythema tenderness and swelling.. ABSENT: calf tenderness, clubbing, pedal edema Neurological exam: PRESENT: alert, awake, oriented to person, oriented to place, oriented to time, oriented to situation, CN II-XII grossly intact. ABSENT: motor sensory deficit Results Laboratory Results: 11/06/18 08:02 11/06/18 08:02 11/06/18 11/06/18 08:02 08:02 WBC 11.0 H RBC 3.42 L Hgb 8.8 L Hct 27.5 L MCV 81 MCH 25.7 L MCHC 32.0 RDW 23.1 H Plt Count 65 L Seg Neutrophils % 70.9 Lymphocytes % 11.3 L Monocytes % 13.8 H Eosinophils % 2.6 Basophils % 1.4 Absolute Neutrophils 7.8 Absolute Lymphocytes 1.2 Absolute Monocytes 1.5 H Absolute Eosinophils 0.3 Absolute Basophils 0.2 Sodium 135.4 L Potassium 3.8 Chloride 102 Carbon Dioxide 25 Anion Gap 8 BUN 11 Creatinine 0.79 Est GFR ( Amer) > 60 Est GFR (Non-Af Amer) > 60 Glucose 109 Calcium 8.5 Magnesium 2.2 Total Bilirubin 2.6 H AST 59 ALT 30 Alkaline Phosphatase 129 H Total Protein 6.2 L Albumin 2.9 L 11/04/18 11/04/18 05:16 11:19 Creatine Kinase 21 L 23 L Impressions: Elbow X-Ray 11/03/18 19:13 IMPRESSION: No evidence of acute osseous injury or significant degenerative change. Shoulder X-Ray 11/03/18 19:13 IMPRESSION: Calcific tendinopathy and sequela of previous shoulder dislocation within the left shoulder. Otherwise unremarkable radiographs of the bilateral shoulders. Ankle X-Ray 11/04/18 00:00 IMPRESSION: NO RADIOGRAPHIC EVIDENCE OF ACUTE INJURY. Lower Extremity MRI 11/04/18 00:00 IMPRESSION: NO EVIDENCE FOR OSTEOMYELITIS. Guidance Fluoroscopy 11/05/18 00:00 IMPRESSION: Fluoroscopic guided right ankle aspiration. Joint Aspiration/Injection 11/05/18 00:00 IMPRESSION: Fluoroscopic guided right ankle aspiration. Assessment and Plan - Diagnosis (1) Polyarthralgia Is this a current diagnosis for this admission?: Yes Plan: Not sure if polyarthralgia is autoimmune/reactive/infectious is most of the work-up has been negative. Patient has history of EtOH intoxication and recurrent falls. Patient does endorse a fall before admission but he denies sustaining any trauma to his right ankle. I wonder if he sustained any right ankle injury due to the recent fall and does not recall. Physical examination positive for mild swelling, erythema and tenderness over right medial malleolus improving. Bilateral shoulder pain on internal rotation otherwise there is no sign of synovitis, other joint swelling, rash or mucosal ulcers. Rt shoulder x-ray shows tendinitis likely due to previous shoulder dislocation otherwise bilateral shoulder x-rays are negative. History of recent PRBC transfusion on 10/16/2018. Denies any history of STIs, penile discharge, oral ulcers, genital ulcers, vision changes, recent travel or dietary changes, tick bites, gout, pseudogout, reactive arthritis, autoimmune disease, recent URI or GI infection, morning stiffness, fatigue. HIV: negative. ESR: 88 CRP: 47 RA: Negative. CK: 23 RICCO: Negative. Hepatitis panel: Negative. Rt Ankle synovial: WBC 7, RBC 7394, CPP Crystal Negative. SPP Cyrstal Negative. UDS + benzos and marijuana. Chlamydia and GC by PCR: Negative. MRI left lower extremity: Negative for osteo or joint effusion. Continue empiric IV antibiotics, follow-up cultures. Received 4 days of empiric IV vancomycin and Zosyn. DC antibiotics. (2) SIRS (systemic inflammatory response syndrome) Is this a current diagnosis for this admission?: Yes Plan: As per #1. (3) Seizure disorder Is this a current diagnosis for this admission?: Yes Plan: Has not had any seizure during hospitalization. Continue home meds. Continue seizure precautions. Outpatient neurology follow- up. (4) Tobacco abuse Is this a current diagnosis for this admission?: No Plan: Advised on quitting. NicoDerm patch provided. (5) Anemia Qualifiers: Anemia type: iron deficiency Is this a current diagnosis for this admission?: No Plan: Iron deficiency anemia most likely due to internal hemorrhoids. H&H stable. Continue oral ferrous sulfate. Outpatient follow-up with surgery. Iron 18.1, TIBC 304, % Sat 6, ferritin 23. Note: Recently admitted on 10/16/2018 for anemia and EtOH withdrawal, discharged on 10/24/2018 received several PRBC transfusions. GI was consulted and patient had an EGD and colonoscopy which did not reveal any source of acute bleeding except for internal hemorrhoids. Patient was sent home to restart his regular diet. Esophagus biopsy results showed squamocolumnar junction with moderate acute and chronic inflammation and no focal ulceration. No Otto's identified. (6) Obesity Is this a current diagnosis for this admission?: Yes Plan: BMI 28.1. Diet and lifestyle modification recommended. (7) Alcoholic liver disease Is this a current diagnosis for this admission?: Yes Plan: CT abdomen positive for hepatic steatosis. History of heavy alcohol abuse. Mild elevation of T bili, albumin and thrombocytopenia. Outpatient gastroenterology follow-up. Advised on quitting alcohol. Monitor LFTs and bleeding. (8) Thrombocytopenia Is this a current diagnosis for this admission?: Yes Plan: Likely due to alcoholic liver disease. Monitor for bleeding. Daily H&H.
[2018-11-07] MEDS: HEPARIN SOD (PORCINE) 5,000 UNIT/ML 1 ML SYRINGE SUBCUT SCH (05:08)
[2018-11-07] MEDS: PIPERACILLIN SODIUM/TAZOBACTAM 3.375 GM in NORMAL SALINE 100 ML IV SCH (05:16)
[2018-11-07] MEDS: LEVETIRACETAM 500 MG TABLET PO SCH (05:19)
[2018-11-07] MEDS: PANTOPRAZOLE SODIUM 40 MG TABLET.DR PO SCH (05:19)
[2018-11-07] MEDS: VANCOMYCIN HCL 1,500 MG in DEXTROSE 5%-WATER 250 ML IV SCH (06:24)
[2018-11-07 06:47] LABS: VANCOMYCIN,TROUGH 20.5 ug/mL (5.0-20.0)
[2018-11-07 07:55] LABS: ABSOLUTE BASOPHILS # (AUTO) 0.1 10^3/uL (0.0-0.2); ABSOLUTE EOSINOPHILS # (AUTO) 0.3 10^3/uL (0.0-0.6); ABSOLUTE LYMPHOCYTES (AUTO) 1.2 10^3/uL (0.5-4.7); ABSOLUTE MONOCYTES (AUTO) 1.6 10^3/uL (0.1-1.4); ABSOLUTE NEUT (AUTO) 6.8 10^3/uL (1.7-8.2); BASOPHILS % (AUTO) 0.6 % (0-2); EOSINOPHILS % (AUTO) 2.9 % (0-6); HEMATOCRIT 25.2 % (37.9-51.0); HEMOGLOBIN 8.3 g/dL (13.5-17.0); LYMPHOCYTES % (AUTO) 11.9 % (13-45); MEAN CORPUSCULAR HEMOGLOBIN 26.3 pg (27.0-33.4); MEAN CORPUSCULAR HGB CONC 32.8 g/dL (32.0-36.0); MEAN CORPUSCULAR VOLUME 80 fl (80-97); MONOCYTES % (AUTO) 16.2 % (3-13); RED BLOOD COUNT 3.14 10^6/uL (4.35-5.55); RED CELL DISTRIBUTION WIDTH 23.5 % (11.5-14.0); SEGMENTED NEUTROPHILS % (AUTO) 68.4 % (42-78); TOTAL CELLS COUNTED % (AUTO) 100 %
[2018-11-07 08:01] LABS: ALANINE AMINOTRANSFERASE 35 U/L (21-72); ALBUMIN 2.7 g/dL (3.5-5.0); ALKALINE PHOSPHATASE 132 U/L (38-126); ANION GAP 8 (5-19); ASPARTATE AMINO TRANSFERASE 61 U/L (17-59); BILIRUBIN,DIRECT 1.3 mg/dL (0.0-0.4); BILIRUBIN,TOTAL 2.5 mg/dL (0.2-1.3); BLOOD UREA NITROGEN 8 mg/dL (7-20); CALCIUM 8.5 mg/dL (8.4-10.2); CARBON DIOXIDE 25 mmol/L (22-30); CHLORIDE 101 mmol/L (98-107); GLUCOSE 88 mg/dL (75-110); POTASSIUM 3.6 mmol/L (3.6-5.0); SODIUM 134.3 mmol/L (137-145); TOTAL PROTEIN 5.8 g/dL (6.3-8.2)
[2018-11-07 08:05] LABS: ANTINUCLEAR ANTIBODIES Negative (Negative)
[2018-11-07 08:21] LABS: PLATELET COUNT 77 10^3/uL (150-450)
[2018-11-07] MEDS: LEVALBUTEROL HCL NEB 1.25 MG/3 ML AMPUL NEB SCH (08:29)
[2018-11-07] MEDS ORDERED: OXYCODONE-ACETAMINOPHEN 5-325 MG TABLET PO PRN (09:23)
[2018-11-07] MEDS: LAMOTRIGINE 100 MG TABLET PO SCH (09:57)
[2018-11-07] MEDS: FUROSEMIDE 40 MG TABLET PO SCH (09:57)
[2018-11-07] MEDS: FERROUS SULFATE 325 MG TABLET PO SCH (09:57)
[2018-11-07] MEDS: FOLIC ACID 1 MG TABLET PO SCH (09:58)
[2018-11-07] MEDS: DOCUSATE SODIUM 100 MG CAPSULE PO SCH (09:58)
[2018-11-07] MEDS: THIAMINE HCL 100 MG TABLET PO SCH (09:59)
--- NOTE | 2018-11-07 10:46 | RADIOLOGY REPORT (SQ) ---
EXAM DESCRIPTION: CHEST SINGLE VIEW COMPLETED DATE/TIME: 11/07/2018 10:36 am REASON FOR STUDY: hypoxia COMPARISON: 11/02/2018 EXAM PARAMETERS: NUMBER OF VIEWS: One view. TECHNIQUE: Single frontal radiographic view of the chest acquired. RADIATION DOSE: NA LIMITATIONS: None. FINDINGS: LUNGS AND PLEURA: Ill-defined retrocardiac opacification on the left. MEDIASTINUM AND HILAR STRUCTURES: No masses. Contour normal. HEART AND VASCULAR STRUCTURES: Heart size is prominent. There is no pulmonary edema. BONES: No acute findings. HARDWARE: None in the chest. OTHER: No other significant finding. IMPRESSION: Cannot exclude limited left lower lobe pneumonia. TECHNICAL DOCUMENTATION: JOB ID: [id number] [employer]- All Rights Reserved Reading location - IP/workstation name: [email or web address]
--- NOTE | 2018-11-07 13:12 | RADIOLOGY REPORT (SQ) ---
EXAM DESCRIPTION: CT CHEST WITHOUT COMPLETED DATE/TIME: 11/07/2018 12:58 pm REASON FOR STUDY: R/O Cancer COMPARISON: None. TECHNIQUE: CT scan performed of the chest without intravenous contrast. Images reviewed with lung, soft tissue and bone windows. Reconstructed coronal and sagittal MPR images reviewed. All images st ored on PACS. All CT scanners at this facility use dose modulation, iterative reconstruction, and/or weight based d osing when appropriate to reduce radiation dose to as low as reasonably achievable (ALARA). [facility]: Dose Right [facility]: CareDose [facility]: Dose Right [facility]: Teradose 4D [facility]: [employer] RADIATION DOSE: CT Rad equipment meets quality standard of care and radiation dose reduction techniq ues were employed. CTDIvol: 9.3 mGy. DLP: 337 mGy-cm. mGy. LIMITATIONS: No technical limitations. FINDINGS: LUNGS AND PLEURA: There is patchy opacification in each lung base. Some air bronchograms are seen on the left. HILAR AND MEDIASTINAL STRUCTURES: There are some small nonspecific mediastinal nodes. HEART AND VASCULAR STRUCTURES: No aneurysm. No pericardial effusion. UPPER ABDOMEN: No significant findings. Limited exam. THYROID AND OTHER SOFT TISSUES: No masses. No adenopathy. BONES: No significant finding. HARDWARE: None in the chest. OTHER: There are some small nonspecific axillary nodes. IMPRESSION: Subsegmental atelectasis in the right lower lobe. Airspace disease in the left lower lo be. Cannot exclude a very limited pneumonia. Nonspecific mediastinal and axillary nodes. TECHNICAL DOCUMENTATION: JOB ID: [id number] Quality ID # [id number]: Final reports with documentation of one or more dose reduction techniques (e.g., Au tomated exposure control, adjustment of the mA and/or kV according to patient size, use of iterative reconstruction technique) 2010 [employer]- All Rights Reserved Reading location - IP/workstation name: [email or web address]
[2018-11-07 13:48] VITALS: BP 145/63
--- NOTE | 2018-11-07 16:58 | PDOC DISCHARGE SUMMARY ---
General - Admit/Disc Date/PCP Admission Date/Primary Care Provider: 11/04/18 00:05 Discharge Date: 11/07/18 - Discharge Diagnosis (1) Polyarthralgia Is this a current diagnosis for this admission?: Yes (2) SIRS (systemic inflammatory response syndrome) Is this a current diagnosis for this admission?: Yes (3) Seizure disorder Is this a current diagnosis for this admission?: Yes (4) Tobacco abuse Is this a current diagnosis for this admission?: No (5) Anemia Is this a current diagnosis for this admission?: No (6) Obesity Is this a current diagnosis for this admission?: Yes (7) Alcoholic liver disease Is this a current diagnosis for this admission?: Yes (8) Thrombocytopenia Is this a current diagnosis for this admission?: Yes (9) Hypoxia Is this a current diagnosis for this admission?: Yes - Additional Information Resuscitation Status: Full Code Discharge Diet: Cardiac Discharge Activity: Activity As Tolerated, Balance Activity w/Rest Prescriptions: Ferrous Sulfate [Ilsa-Time] 325 mg PO DAILY 30 Days #30 tablet Folic Acid 0.4 mg PO DAILY 30 Days #30 tablet Ibuprofen/Oxycodone HCl [Combunox Tablet] 1 each PO Q8 4 Days #12 tablet Levofloxacin [Levaquin 500 mg Tablet] 500 mg PO DAILY 2 Days #2 tablet Thiamine HCl [Thiamine 100 mg Tablet] 100 mg PO DAILY 30 Days #30 tablet Home Medications: Lamotrigine [Lamictal] 150 mg PO Q12 10/16/18 Levetiracetam [Keppra] 1,000 mg PO Q8 10/16/18 Furosemide [Lasix 40 mg Tablet] 40 mg PO QAM 11/03/18 Ferrous Sulfate [Ilsa-Time] 325 mg PO DAILY 30 Days #30 tablet 11/07/18 Folic Acid 0.4 mg PO DAILY 30 Days #30 tablet 11/07/18 Ibuprofen/Oxycodone HCl [Combunox Tablet] 1 each PO Q8 4 Days #12 tablet 11/07/18 Levofloxacin [Levaquin 500 mg Tablet] 500 mg PO DAILY 2 Days #2 tablet 11/07/18 Thiamine HCl [Thiamine 100 mg Tablet] 100 mg PO DAILY 30 Days #30 tablet History of Present Illness History of Present Illness: ENRIQUE SANTOS is a 48 year old male with a 3-week history of progressively worsening pain in his extremities. He admits that his pain started in the shoulders and elbows of his bilateral upper extremities 3 weeks ago being somewhat worse on the right than the left and over the last 1 to 2 weeks the pain has come to involve his lower extremities again more significantly on the right than the left and especially the right ankle. The pain is worsened with physical activity and is eased by rest. He was seen in the emergency room yesterday and elected to not be admitted to the hospital leaving AGAINST MEDICAL ADVICE at that time due to his desire to attend a family function. He returns today because his pain continues to be severe. He denies any recent trauma. He does admit to a recent hospitalization for severe anemia in which he received multiple blood transfusions. He denies any associated or accompanying signs or symptoms. He denies prior similar episodes. He has not identified any additional aggravating or ameliorating factors for his pain. In the emergency room he was found to have no radiographic evidence of injury or other acute changes on x-rays of his right shoulder and elbow. His CBC revealed an elevated white count of 20,000 which is slightly increased from the white blood count of 19,000 yesterday. His erythrocyte sedimentation rate is 80 and his CRP is 47.9. His examination showed some swelling of his right ankle with tenderness but no erythema or increased warmth. The remainder of his ER evaluation was unremarkable or consistent with a previously established baseline. He was subsequently admitted to the hospital for further evaluation and treatment. 11/04/2018. Patient complaining of bilateral shoulder and left ankle pain and swelling. Recently admitted on 10/16/2018 for anemia and EtOH withdrawal, discharged on 10/24/2018 received several PRBC transfusions, GI was consulted and patient had an EGD and colonoscopy which not reveal any source of acute bleeding except for internal hemorrhoids. Patient was sent home to restart his regular diet. Esophagus biopsy results showed squamocolumnar junction with moderate acute and chronic inflammation and no focal ulceration. No Otto's identified. Since being discharged on 10/24/2018 patient was doing well but he started having bilateral elbow and shoulder pain moving to his right ankle. Patient denies any history of STIs, denies discharge, oral ulcers, genital ulcers, vision changes, recent travel or dietary changes, tick bites, gout, pseudogout, reactive arthritis, recent upper or lower GI infection, morning stiffness, fatigue. 11/06/2018. No acute events overnight, patient still complaining of bilateral shoulder pain, unable to too much. Was able to tolerate physical therapy. Actually he was helped up by physical therapy he was able to tolerate his physical therapy very well. Recommendation is for home with home PT. Complaining of right ankle pain which has improved since admission. Denies any fever, chills, nausea, vomiting, diarrhea, constipation or any urinary symptoms. Hospital Course Hospital Course: (1) Polyarthralgia On the day of discharge patient very anxious to go home and ambulating without any problems or any assistance warehouse assistant in the hallways. Not sure if polyarthralgia is autoimmune/reactive/infectious. Most of the work- up has been negative. Patient has history of EtOH intoxication and recurrent falls. Patient does endorse a fall before admission but he denies sustaining any trauma to his right ankle. I wonder if he sustained any right ankle injury due to the recent fall and does not recall. Physical examination positive for mild swelling, erythema and tenderness over right medial malleolus resolved on the day of discharge. Bilateral shoulder pain on internal rotation otherwise there is no sign of synovitis, other joint swelling, rash or mucosal ulcers. 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 Rt shoulder x-ray shows tendinitis likely due to previous shoulder dislocation otherwise bilateral shoulder x-rays are negative. History of recent PRBC transfusion on 10/16/2018. Denies any history of STIs, penile discharge, oral ulcers, genital ulcers, vision changes, recent travel or dietary changes, tick bites, gout, pseudogout, reactive arthritis, autoimmune disease, recent URI or GI infection, morning stiffness, fatigue. HIV: negative. ESR: 88 CRP: 47 RA: Negative. CK: 23 RICCO: Negative. Hepatitis panel: Negative. Rt Ankle synovial: WBC 7, RBC 7394, CPP Crystal Negative. SPP Cyrstal Negative. UDS + benzos and marijuana. Chlamydia and GC by PCR: Negative. MRI left lower extremity: Negative for osteo or joint effusion. Received 5 days of empiric IV vancomycin and Zosyn. (2) SIRS (systemic inflammatory response syndrome) As per #1. (3) Seizure disorder No seizure during hospitalization. Was asked to follow-up with neurology and continue his home medications. (4) Tobacco abuse Advised on quitting. NicoDerm patch provided. (5) Anemia Started on p.o. ferrous sulfate. Iron deficiency anemia most likely due to internal hemorrhoids. H&H stable. Continue oral ferrous sulfate. Outpatient follow-up with surgery. Iron 18.1, TIBC 304, % Sat 6, ferritin 23. Note: Recently admitted on 10/16/2018 for anemia and EtOH withdrawal, discharged on 10/24/2018 received several PRBC transfusions. GI was consulted and patient had an EGD and colonoscopy which did not reveal any source of acute bleeding except for internal hemorrhoids. Patient was sent home to restart his regular diet. Esophagus biopsy results showed squamocolumnar junction with moderate acute and chronic inflammation and no focal ulceration. No Otto's identified. (6) Obesity BMI 28.1. Diet and lifestyle modification recommended. (7) Alcoholic liver disease CT abdomen positive for hepatic steatosis. History of heavy alcohol abuse. Mild elevation of T bili, albumin and thrombocytopenia. Outpatient gastroenterology follow-up. Advised on quitting alcohol. Monitor LFTs and bleeding. An appointment was made for him to see Dr. Azar for wood cabinet finisher on 11/13/2018. (8) Thrombocytopenia Likely due to alcoholic liver disease. Monitor for bleeding. Daily H&H. An appointment was made for him to see Dr. Azar for wood cabinet finisher on 11/13/2018. (9) Hypoxia He was found to be mildly hypoxic on room air and was started on supplemental oxygen. Denies any shortness of breath however patient was also febrile with leukocytosis on admission CT chest on 11/07/2018 was positive for subsegmental atelectasis in the right lower lobe. Airspace disease in the left lower lobe. Cannot exclude very limited pneumonia. All cultures came back negative. However he received 5 days of empiric IV antibiotics while inpatient. He was discharged on levofloxacin for 2 more days to complete 7 days of total antibiotics in case he had pneumonia. Physical Exam Vital Signs: Temp Pulse Resp BP Pulse Ox 98.7 F 88 16 145/63 H 91 L 11/07/18 13:46 11/07/18 13:46 11/07/18 13:46 11/07/18 13:46 11/07/18 13:46 Intake & Output 11/06/18 11/07/18 11/08/18 06:59 06:59 06:59 Intake Total 1900 3920 1250 Output Total 2075 3355 450 Balance -175 565 800 Weight 95.4 kg 96.8 kg General appearance: PRESENT: no acute distress, well-developed, well-nourished Head exam: PRESENT: atraumatic, normocephalic Neck exam: ABSENT: carotid bruit, JVD, lymphadenopathy, thyromegaly Respiratory exam: PRESENT: clear to auscultation сергей. ABSENT: rales, rhonchi, wheezes Cardiovascular exam: PRESENT: RRR. ABSENT: diastolic murmur, rubs, systolic murmur GI/Abdominal exam: PRESENT: normal bowel sounds, soft. ABSENT: distended, guarding, mass, organolmegaly, rebound, tenderness Extremities exam: PRESENT: full ROM - Bilateral shoulder pain on external rotation.. ABSENT: calf tenderness, clubbing, pedal edema Musculoskeletal exam: PRESENT: ambulatory, normal inspection Neurological exam: PRESENT: alert, awake, oriented to person, oriented to place, oriented to time, oriented to situation, CN II-XII grossly intact. ABSENT: motor sensory deficit Skin exam: PRESENT: dry, intact, warm. ABSENT: cyanosis, rash Results Laboratory Results: 11/07/18 05:43 11/07/18 05:43 11/07/18 11/07/18 11/07/18 05:43 05:43 05:43 WBC 10.0 RBC 3.14 L Hgb 8.3 L Hct 25.2 L MCV 80 MCH 26.3 L MCHC 32.8 RDW 23.5 H Plt Count 77 L Seg Neutrophils % 68.4 Lymphocytes % 11.9 L Monocytes % 16.2 H Eosinophils % 2.9 Basophils % 0.6 Absolute Neutrophils 6.8 Absolute Lymphocytes 1.2 Absolute Monocytes 1.6 H Absolute Eosinophils 0.3 Absolute Basophils 0.1 Sodium 134.3 L Potassium 3.6 Chloride 101 Carbon Dioxide 25 Anion Gap 8 BUN 8 Creatinine 0.80 0.80 Est GFR ( Amer) > 60 > 60 Est GFR (Non-Af Amer) > 60 > 60 Glucose 88 Calcium 8.5 Magnesium 2.1 Total Bilirubin 2.5 H AST 61 H ALT 35 Alkaline Phosphatase 132 H Total Protein 5.8 L Albumin 2.7 L 11/03/18 21:18 Blood Blood Culture - Final Staphylococcus Epidermidis 11/04/18 11/04/18 05:16 11:19 Creatine Kinase 21 L 23 L Impressions: Elbow X-Ray 11/03/18 19:13 IMPRESSION: No evidence of acute osseous injury or significant degenerative change. Shoulder X-Ray 11/03/18 19:13 IMPRESSION: Calcific tendinopathy and sequela of previous shoulder dislocation within the left shoulder. Otherwise unremarkable radiographs of the bilateral shoulders. Ankle X-Ray 11/04/18 00:00 IMPRESSION: NO RADIOGRAPHIC EVIDENCE OF ACUTE INJURY. Lower Extremity MRI 11/04/18 00:00 IMPRESSION: NO EVIDENCE FOR OSTEOMYELITIS. Guidance Fluoroscopy 11/05/18 00:00 IMPRESSION: Fluoroscopic guided right ankle aspiration. Joint Aspiration/Injection 11/05/18 00:00 IMPRESSION: Fluoroscopic guided right ankle aspiration. Chest CT 11/07/18 00:00 IMPRESSION: Subsegmental atelectasis in the right lower lobe. Airspace disease in the left lower lobe. Cannot exclude a very limited pneumonia. Nonspecific mediastinal and axillary nodes. Chest X-Ray 11/07/18 00:00 IMPRESSION: Cannot exclude limited left lower lobe pneumonia. Qualifiers - * PATIENT BEING DISCHARGED WITH ANY OF THE FOLLOWING DIAGNOSIS: No Acute Heart Failure - Is this a Heart Failure Patient?: No LVEF < 40%?: No- if no continue to question #3
[2018-11-07] MEDS ORDERED: VANCOMYCIN HCL 1,250 MG in DEXTROSE 5%-WATER 250 ML IV SCH (22:00)
== END 2018-11-07 14:11 | disposition home health service (06) | DRG 565 ==
LOC: ER 15:44 → EH 11-04 00:05 → 3N 11-04 03:39
PROVIDERS: ADMIT Emergency Medicine; ATTEND Emergency Medicine
PROC: 0S9F3ZZ Drainage of Right Ankle Joint, Percutaneous Approach (ICD-10-PCS; principal; 2018-11-05)
DX: M25.471 Effusion, right ankle (principal); R65.10 Systemic inflammatory response syndrome (SIRS) of non-infectious origin without acute organ dysfunction; M25.512 Pain in left shoulder; D50.9 Iron deficiency anemia, unspecified; K70.30 Alcoholic cirrhosis of liver without ascites; F10.21 Alcohol dependence, in remission; G40.909 Epilepsy, unspecified, not intractable, without status epilepticus; F17.210 Nicotine dependence, cigarettes, uncomplicated; D72.829 Elevated white blood cell count, unspecified; K64.8 Other hemorrhoids; F12.90 Cannabis use, unspecified, uncomplicated; F13.90 Sedative, hypnotic, or anxiolytic use, unspecified, uncomplicated; E66.9 Obesity, unspecified; Z68.28 Body mass index [BMI] 28.0-28.9, adult; D69.59 Other secondary thrombocytopenia; R09.02 Hypoxemia; M25.511 Pain in right shoulder; M25.522 Pain in left elbow; M25.521 Pain in right elbow; M75.81 Other shoulder lesions, right shoulder; S43.004S Unspecified dislocation of right shoulder joint, sequela; X58.XXXS Exposure to other specified factors, sequela
CPT/HCPCS: 20605; 36415; 71045; 71250; 77002; 80048; 80053; 80061; 80074; 80076; 80175; 80177; 80202; 80307; 81001; 82140; 82550; 82565; 82607; 82728; 82746; 83540; 83550; 83605; 83690; 83735; 84100; 84439; 84443; 84481; 84550; 85025; 85045; 85652; 86038; 86140; 86430; 86701; 87040; 87070; 87075; 87077; 87086; 87186; 87205; 87491; 87591; 89050; 89060; 94799; 99284; A9576; J2270; J2543; J3370; J3490; J7030; J7050; J7060; J7614

== ENCOUNTER 2018-12-12 07:25 | Day surgery (SDC) | payer MEDICARE ==
[~2018-12-12 07:25] MED LIST: PROPOFOL INJ 200 MG/20 ML VIAL IV ONE
[2018-12-12] MEDS ORDERED: LIDOCAINE 1% INJ-PF (10 MG/ML) 30 ML SDV ONE (08:08)
[2018-12-12 08:57] VITALS: BP 127/64
--- NOTE | 2018-12-12 11:41 | Operative Report ---
Operative Report DATE OF SURGERY: 12/12/18 Operative Report: The risks benefits and alternatives of the procedure explained to the patient in detail and informed consent is obtained.A GIF Olympus video scope was inserted into the patient's mouth and hypopharynx, the esophagus is identified intubated and insufflated, the scope was then advanced through the esophagus stomach and duodenum, retroflexion maneuver is done, the esophagus stomach and first and second portions of the duodenum examined. PREOPERATIVE DIAGNOSIS: Follow-up esophageal ulcer POSTOPERATIVE DIAGNOSIS: Healed esophageal ulcer. Gastritis status post biopsy. No evidence of esophageal varices OPERATION: EGD with biopsy SURGEON: DIANA WASHINGTON ANESTHESIA: LMAC TISSUE REMOVED OR ALTERED: As noted above. COMPLICATIONS: None. ESTIMATED BLOOD LOSS: None. INTRAOPERATIVE FINDINGS: As noted above. PROCEDURE: Patient tolerated the procedure well. No immediate postprocedure comp occasions are noted. Patient is discharged in good condition. Discharge date 12/12/2018. Discharge diet: Regular. Discharge activity: Regular. 2 to 3-week follow-up to discuss findings. Patient is instructed to call the office or proceed to the emergency room should there be any further questions. Wait on the pathology.
== END 2018-12-12 08:51 | disposition home or self-care (01) ==
LOC: END 07:25
PROVIDERS: ATTEND Internal Medicine Gastroenterology
DX: K29.50 Unspecified chronic gastritis without bleeding (principal); Z09 Encounter for follow-up examination after completed treatment for conditions other than malignant neoplasm; Z87.19 Personal history of other diseases of the digestive system; D64.9 Anemia, unspecified; G40.909 Epilepsy, unspecified, not intractable, without status epilepticus; F17.210 Nicotine dependence, cigarettes, uncomplicated; Z79.899 Other long term (current) drug therapy
CPT/HCPCS: 43239; 88305 ×2; 00731; J3490; J2704; 731

== ENCOUNTER 2019-06-30 16:50 | Emergency (ER) | payer MEDICARE, MEDICAID ==
[2019-06-30] MEDS ORDERED: NORMAL SALINE 1000 ML 1,000 ML with POTASSIUM CHLORIDE 20 MEQ, MAGNESIUM SULFATE 8 MEQ,... IV SCH ×5 (18:00)
--- NOTE | 2019-06-30 18:02 | ER Document Report ---
ED Medical Screen (RME) - General Stated Complaint: ALCOHOL WITHDRAWAL Time Seen by Provider: 06/30/19 17:55 Mode of Arrival: Wheelchair Information source: Patient, Relative - Spouse Notes: 49-year-old male with history of GI bleed and alcoholism presents emergency department with positive EtOH, requesting help to stop drinking. Reports he drinks about a case a day. Reports he drank that case this morning. Reports last night he had bloody diarrhea. I have greeted and performed a rapid initial assessment of this patient. A comprehensive ED assessment and evaluation of the patient, analysis of test results and completion of the medical decision making process will be conducted by additional ED providers. TRAVEL OUTSIDE OF THE [place] IN LAST 30 DAYS: No - Related Data Allergies/Adverse Reactions: No Known Allergies Allergy (Verified 12/12/18 07:15) Past Medical History - Social History Frequency of alcohol use: Heavy Drug Abuse: None - Past Medical History Cardiac Medical History: Denies: Hx Coronary Artery Disease, Hx Heart Attack, Hx Hypertension Pulmonary Medical History: Reports: Hx Pneumonia - RECENT Denies: Hx Asthma, Hx Bronchitis, Hx COPD, Hx Respiratory Failure Neurological Medical History: Reports: Hx Seizures - EPILEPSY. Denies: Hx Cerebrovascular Accident Endocrine Medical History: Denies: Hx Diabetes Mellitus Type 1, Hx Diabetes Mellitus Type 2, Hx Hyperthyroidism, Hx Hypothyroidism Renal/ Medical History: Denies: Hx Peritoneal Dialysis GI Medical History: Denies: Hx Cirrhosis, Hx Crohn's Disease, Hx Hepatitis, Hx Ulcerative Colitis Musculoskeltal Medical History: Denies Hx Arthritis, Denies Hx Fibromyalgia, Denies Hx Gout Skin Medical History: Denies Hx Eczema, Denies Hx Psoriasis Psychiatric Medical History: Denies: Hx Depression Infectious Medical History: Denies: Hx Hepatitis Past Surgical History: Reports: Other - EGD and colonoscopy - Immunizations Hx Diphtheria, Pertussis, Tetanus Vaccination: No Physical Exam - Vital signs Vitals: Temp Pulse Resp BP Pulse Ox 98.3 F 89 18 132/64 H 95 06/30/19 17:06/30/19 17:06/30/19 17:06/30/19 17:06/30/19 17:07 Course - Vital Signs Vital signs: Temp Pulse Resp BP Pulse Ox 98.3 F 89 18 132/64 H 95 06/30/19 17:07 06/30/19 17:07 06/30/19 17:07 06/30/19 17:07 06/30/19 17:07
[2019-06-30 18:48] LABS: ABSOLUTE BASOPHILS # (AUTO) 0.1 10^3/uL (0.0-0.2); ABSOLUTE EOSINOPHILS # (AUTO) 0.1 10^3/uL (0.0-0.6); ABSOLUTE LYMPHOCYTES (AUTO) 2.3 10^3/uL (0.5-4.7); ABSOLUTE MONOCYTES (AUTO) 0.5 10^3/uL (0.1-1.4); ABSOLUTE NEUT (AUTO) 3.7 10^3/uL (1.7-8.2); BASOPHILS % (AUTO) 0.8 % (0-2); HEMATOCRIT 34.6 % (37.9-51.0); HEMOGLOBIN 11.3 g/dL (13.5-17.0); LYMPHOCYTES % (AUTO) 34.3 % (13-45); MEAN CORPUSCULAR HEMOGLOBIN 26.1 pg (27.0-33.4); MEAN CORPUSCULAR HGB CONC 32.6 g/dL (32.0-36.0); MEAN CORPUSCULAR VOLUME 80 fl (80-97); MONOCYTES % (AUTO) 7.2 % (3-13); RED BLOOD COUNT 4.32 10^6/uL (4.35-5.55); SEGMENTED NEUTROPHILS % (AUTO) 55.7 % (42-78); TOTAL CELLS COUNTED % (AUTO) 100 %; WHITE BLOOD COUNT 6.7 10^3/uL (4.0-10.5)
[2019-06-30 19:04] LABS: ALBUMIN 4.6 g/dL (3.5-5.0); ALKALINE PHOSPHATASE 169 U/L (38-126); ANION GAP 14 (5-19); ASPARTATE AMINO TRANSFERASE 103 U/L (17-59); BILIRUBIN,DIRECT 0.7 mg/dL (0.0-0.4); BILIRUBIN,TOTAL 1.5 mg/dL (0.2-1.3); BLOOD UREA NITROGEN 5 mg/dL (7-20); CALCIUM 8.9 mg/dL (8.4-10.2); CARBON DIOXIDE 26 mmol/L (22-30); CHLORIDE 107 mmol/L (98-107); GLUCOSE 99 mg/dL (75-110); POTASSIUM 4.6 mmol/L (3.6-5.0)
[2019-06-30 19:08] LABS: ACETAMINOPHEN < 10 ug/mL (10-30)
[2019-06-30 19:13] LABS: ALCOHOL 344 mg/dL (NONE DETECTED)
[2019-06-30 19:18] LABS: PLATELET COUNT 85 10^3/uL (150-450)
[2019-06-30] MEDS ORDERED: LEVETIRACETAM 500 MG TABLET PO ONE (20:59)
[2019-06-30] MEDS ORDERED: LAMOTRIGINE 100 MG TABLET PO ONE (21:01)
[2019-06-30] MEDS ORDERED: FAMOTIDINE INJ/PF 20 MG/2 ML SDV IV ONE (21:11)
[2019-06-30 22:06] LABS: INTERNATIONAL RATION (INR) 1.16; PROTHROMBIN TIME 14.9 SEC (11.4-15.4)
[2019-06-30 22:07] LABS: PARTIAL THROMBOPLASTIN TIME 37.8 SEC (23.5-35.8)
--- NOTE | 2019-06-30 22:08 | RADIOLOGY REPORT (SQ) ---
EXAM DESCRIPTION: XR ABDOMEN SUPINE AND ERECT WITH CHEST (ABD ACUTE SERIES) COMPLETED DATE/TME: 06/30/2019 21:10 CLINICAL HISTORY: 49 years, Male, ALCOHOLISM COMPARISON: None. NUMBER OF VIEWS: 4 TECHNIQUE: Single view chest. 3 views abdomen LIMITATIONS: None. FINDINGS: Cardiomediastinal silhouette is prominent. Lungs grossly clear. No effusion. No pneumothorax. No free air. Nonspecific bowel gas pattern. No high-grade obstruction. Vascular calcification. Osteoarthritis IMPRESSION: No acute intra-abdominal process is identified. Nonspecific gas pattern copyright 2010 [employer]- All Rights Reserved
--- NOTE | 2019-06-30 22:20 | EKG REPORT ---
SEVERITY:- ABNORMAL ECG - SINUS RHYTHM CONSIDER ANTERIOR INFARCT : Confirmed by: Javier Kimble MD 30-Jun-2019 22:20:10
[2019-06-30 22:52] LABS: APPEARANCE,URINE CLEAR; BILIRUBIN,URINE NEGATIVE (NEGATIVE); COLOR,URINE YELLOW; GLUCOSE, URINE NEGATIVE (NEGATIVE); KETONES,URINE NEGATIVE (NEGATIVE); LEUKOCYTE ESTERASE,URINE NEGATIVE (NEGATIVE); NITRITE,URINE NEGATIVE (NEGATIVE); PROTEIN,URINE NEGATIVE (NEGATIVE); UROBILINOGEN,URINE NEGATIVE mg/dL (<2.0)
[2019-06-30 23:10] LABS: URINE AMPHETAMINES SCREEN NEGATIVE; URINE BARBITURATES SCREEN NEGATIVE; URINE BENZODIAZEPINES SCREEN NEGATIVE; URINE COCAINE SCREEN NEGATIVE; URINE MARIJUANA (THC) SCREEN NEGATIVE; URINE METHADONE SCREEN NEGATIVE; URINE PHENCYCLIDINE SCREEN NEGATIVE
--- NOTE | 2019-07-01 02:04 | ER Document Report ---
Entered by SCHUYLER HARDIN SCRIBE 06/30/192053 Acting as scribe for:VITA MARADIAGA MD ED General - General Chief Complaint: Alcohol Withdrawl Stated Complaint: ALCOHOL WITHDRAWAL Time Seen by Provider: 06/30/19 17:55 Primary Care Provider: KASSANDRA ABURTO FNP-C [Primary Care Provider] - Follow up as needed Mode of Arrival: Wheelchair Information source: Patient Notes: 49-year-old male with epilepsy presents to the emergency department to get help for his alcoholism. Patient states that his last drink was this morning and he told his "I need some help". Patient has never been to detox before and requested to be in-patient. Patient reports that he has been an alcoholic for about 35 years. He drinks about a case a day. Patient denies unexplained weight loss, anxiety, depression, hallucinations, chest pain, headaches, and strokes. TRAVEL OUTSIDE OF THE [place] IN LAST 30 DAYS: No - Related Data Allergies/Adverse Reactions: No Known Allergies Allergy (Verified 12/12/18 07:15) Past Medical History - General Information source: Patient, Relative - Spouse - Social History Smoking Status: Current Every Day Smoker Cigarette use (# per day): Yes - 2 packs per day Chew tobacco use (# tins/day): No Frequency of alcohol use: Heavy Drug Abuse: None Occupation: On Medical disability Lives with: Spouse/Significant other Family History: Reviewed & Not Pertinent Patient has suicidal ideation: No Patient has homicidal ideation: No Pulmonary Medical History: Reports: Hx Pneumonia - RECENT Neurological Medical History: Reports: Hx Seizures - EPILEPSY Past Surgical History: Reports: Other - EGD and colonoscopy - Immunizations Hx Diphtheria, Pertussis, Tetanus Vaccination: No Review of Systems - Review of Systems Constitutional: See HPI. denies: Chills, Diaphoresis, Fever, Weight loss EENT: No symptoms reported Cardiovascular: See HPI. denies: Chest pain Respiratory: No symptoms reported Gastrointestinal: No symptoms reported Genitourinary: No symptoms reported Male Genitourinary: No symptoms reported Musculoskeletal: No symptoms reported Skin: No symptoms reported Hematologic/Lymphatic: No symptoms reported Neurological/Psychological: See HPI, Other - Alcoholism -: Yes All other systems reviewed and negative Physical Exam - Vital signs Vitals: Temp Pulse Resp BP Pulse Ox 98.3 F 89 18 132/64 H 95 06/30/19 17:07 06/30/19 17:07 06/30/19 17:07 06/30/19 17:07 06/30/19 17:07 - Notes Notes: Physical Exam: General: Alert. Alcoholic. HEENT: Normocephalic. Atraumatic. PERRL. Extraocular movements intact. Oropharynx clear. Neck: Supple. Non-tender. Respiratory: No respiratory distress. Clear and equal breath sounds bilaterally. Cardiovascular: Regular rate and rhythm. Abdominal: Normal Inspection. Non-tender. No distension. Normal Bowel Sounds. Back: No gross abnormalities. Extremities: Moves all four extremities. Upper extremities: Normal inspection. Normal ROM. Lower extremities: Normal inspection. No edema. Normal ROM. Neurological: AAOx4. Skin: Warm. Dry. Normal color. Course - Vital Signs Vital signs: Temp Pulse Resp BP Pulse Ox 98.7 F 89 18 100/49 L 92 06/30/19 21:22 06/30/19 17:07 07/01/19 01:01 07/01/19 00:01 07/01/19 01:01 - Laboratory Result Diagrams: 06/30/19 18:28 06/30/19 18:28 Laboratory results interpreted by me: 06/30/19 06/30/19 06/30/19 18:28 18:28 18:28 RBC 4.32 L Hgb 11.3 L Hct 34.6 L MCH 26.1 L RDW 20.0 H Plt Count 85 L APTT Sodium 147.4 H BUN 5 L Magnesium 2.5 H Total Bilirubin 1.5 H Direct Bilirubin 0.7 H AST 103 H Alkaline Phosphatase 169 H Ammonia Total Protein 9.0 H Salicylates 1.0 L Acetaminophen < 10 L Serum Alcohol 344 H* 06/30/19 06/30/19 18:28 22:35 RBC Hgb Hct MCH RDW Plt Count APTT 37.8 H Sodium BUN Magnesium Total Bilirubin Direct Bilirubin AST Alkaline Phosphatase Ammonia 45.5 H Total Protein Salicylates Acetaminophen Serum Alcohol - Diagnostic Test Radiology reviewed: Pending, Image reviewed, Reports reviewed Radiology results interpreted by me: 07/01/19 01:57 Acute abdominal series flat and upright including a 1 view chest shows no acute process in the chest x-ray no acute cardiopulmonary disease found. Abdomen flat and upright no obstruction calcification noted in some abdominal vessels no acute process. Discharge - Discharge Clinical Impression: Acute alcohol intoxication with alcoholism, Alcohol dependence Condition: Stable Disposition: HOME, SELF-CARE Additional Instructions: Alcohol Withdrawal Your symptoms are caused by alcohol withdrawal. After a period of frequent drinking, the brain and body are changed by the alcohol. When you quit or reduce your drinking, the nervous system becomes unstable. Withdrawal symptoms can start a few hours after your last drink, but sometimes don't begin until a couple of days later. Symptoms can include shakiness, sweating, insomnia, nausea, vomiting, fearfulness, hallucinations, and seizures. In addition to the acute effects of alcohol withdrawal, we often have to deal with the medical effects of alcoholism. These problems often include dehydration, stomach irritation, intestinal bleeding, low blood sugar, liver disease, and pancreas inflammation. Treatment for alcohol withdrawal includes mild sedatives, vitamins, and fluids. You need to be with someone who can help if symptoms become severe. Many patients can withdraw at home. Admission to the hospital or a detox facility may be necessary if withdrawal symptoms are severe and uncontrollable. Abstaining from alcohol is the only effective long-term treatment. If you start drinking again, you will not be able to control yourself after the first drink. Treatment programs are available. In addition, many alcoholics benefit f rom Alcoholics Anonymous or other support groups available through your counselor or methodist entry writer. [facility]ON and [facility]-TE[facility] are support groups for friends and family members of an alcoholic. Go to the emergency room if you develop persistent vomiting, severe abdominal pain, fever, shortness of breath, hallucinations, uncontrollable tremors, or seizures. We notified [place] [facility] facility and our goal was to have you to discharge from the emergency department to go directly over to the [facility]. However there since this is full at this time with no bed availability. Their plan is to have some discharges today and this a.m. We recommend that you call [facility] this a.m. and while you are still with an alcohol level less than 200 encourage you not drink any more alcohol at this time. And hopefully you can gain entry into their facility under their program for your alcohol detox. Forms: Smoking Cessation Education Referrals: KASSANDRA ABURTO, MULU-C [Primary Care Provider] - Follow up as needed I personally performed the services described in the documentation, reviewed and edited the documentation which was dictated to the scribe in my presence, and it accurately records my words and actions.
[2019-07-01 02:10] VITALS: BP 131/64
== END 2019-07-01 02:21 | disposition home or self-care (01) ==
LOC: ER 16:50
DX: F10.229 Alcohol dependence with intoxication, unspecified (principal); F17.210 Nicotine dependence, cigarettes, uncomplicated
CPT/HCPCS: 36415; 74022; 80053; 80307; 81001; 82140; 82550; 83690; 83735; 84484; 85025; 85610; 85730; 86850; 86900; 86901; 93005; 93010; 96365; 96366; 96375; 99285; J3411; J3475; J3480; J3490; J7030; S0028